=== PATIENT | female | born 1955 | race Caucasian/White ===

== ENCOUNTER 2021-09-23 17:04 | Emergency (ER) | payer MEDICARE, SELFPAY ==
[2021-09-23 17:21] VITALS: BP 134/72; PULSE 90; RESP 20; TEMP 36.3; O2SAT 97
--- NOTE | 2021-09-23 17:32 | ED.GENADULT ---
HPI - General Adult General Chief complaint: Extremity Problem,Nontraumatic Stated complaint: Rt leg pain and discoloration Source: patient Mode of arrival: ambulatory Limitations: no limitations History of Present Illness HPI narrative: Yanni is a 66F with a complex PMH including a mood disorder, HTN, DMII, chronic pain, gout, lymphedema, OA and polymyalgia rheumatica that presented to the emergency department with increasing pain and swelling in the RLE for the last few days. She denies any trauma or inciting event. It is a constant aching pain that is better when she puts her legs up but worse with standing. She denies any CP, SOB, or syncope. Related Data Home Medications Medication Instructions Recorded Confirmed allopurinol 300 mg tablet 300 mg PO DAILY 08/03/19 09/23/21 betamethasone dipropionate 0.05 % 1 applic TOPICAL BID 08/03/19 05/01/20 lotion bupropion HCl 300 mg 24 hr tablet, 300 mg PO QAM 08/03/19 09/23/21 extended release cyclobenzaprine 10 mg tablet 10 mg PO TID 08/03/19 09/23/21 gabapentin 400 mg capsule 400 mg PO TID 08/03/19 05/01/20 hydrocodone 10 mg-acetaminophen 1 tablet PO Q4-6H PRN tablet 08/03/19 09/23/21 325 mg tablet insulin aspart U-100 100 unit/mL 30 unit SUB-Q TID ml 08/03/19 05/01/20 (3 mL) subcutaneous pen sertraline 100 mg tablet 100 mg PO BID tablet 08/03/19 09/23/21 trazodone 100 mg tablet 100 mg PO ONCE tablet 08/03/19 05/01/20 Allergies Allergy/AdvReac Type Severity Reaction Status Date / Time estrogens, conjugated Allergy Unknown Hives Verified 05/01/20 13:01 Review of Systems Constitutional: Constitutional: Reports no additional constitutional complaints Eyes: Eyes: Reports no additional eye complaints ENT: Reports system reviewed and no additional complaints, except as documented Cardiovascular: Cardiovascular: Reports no additional cardiovascular complaints Respiratory: Respiratory: Reports no additional respiratory complaints Gastrointestinal: Gastrointestinal: Reports no additional gastrointestinal complaints Genitourinary: Genitourinary: Reports no additional female genitourinary complaints Musculoskeletal: Musculoskeletal: Reports as per HPI Integumentary/Breasts: Skin/Breast: Reports system reviewed and no additional complaints, except as docu Neurologic: Reports system reviewed and no additional complaints, except as documented Psychiatric: Psychiatric: Reports no additional psychiatric complaints Endocrine: Endocrine: Reports no additional endocrine complaints Hematologic/Lymphatic: Hematologic/Lymphatic: Reports no additional hematologic/lymphatic complaints Allergic/Immunologic: Allergic/Immunologic: Reports no additional allergic/immunologic complaints [facility] Past Medical History Medical History (Updated 09/23/21 @ 17:50 by James Hutchison DO) Arthritis Asthma Depression Diabetes ESR raised Fibromyalgia (~2006) Hypertension Surgical History Surgical History H/O section History of cholecystectomy History of total abdominal hysterectomy Family History Family History Other Cancer Cerebrovascular accident Social History Social History Smoking status: Never smoker Alcohol intake: never Exam Const: General: no acute distress and alert Orientation/consciousness: patient oriented x3 Limitations: No altered mental status HENMT: Head: normal to inspection Other: normocephalic, atraumatic Eyes: Conjunctivae: conjunctivae normal Pupils: Equal, round and reactive pupils present Neck: Neck: normal visual inspection Chest: Chest palpation & inspection: normal inspection of the chest Resp: Effort & Inspection: normal respiratory effort, not labored and not tachypneic Auscultation: clear to auscultation bilaterally Cardio: Rate: regular
[2021-09-23] MEDS: CEPHALEXIN 500 MG CAPSULE PO (17:50)
[2021-09-23] MEDS: ENOXAPARIN 120 MG/0.8 ML SYRINGE 147 MG SUB-Q (17:54)
== END 2021-09-23 18:19 | disposition home or self-care (01) ==
PROVIDERS: Emergency Provider Family Medicine; PCP Internal Medicine
DX: M79.604 Pain in right leg (principal); M79.89 Other specified soft tissue disorders; L03.90 Cellulitis, unspecified; E11.9 Type 2 diabetes mellitus without complications; I10 Essential (primary) hypertension
CPT/HCPCS: 96372; 99283; A9270; J1650

== ENCOUNTER 2021-09-24 14:10 | Outpatient (CLI) | payer MEDICARE, SELFPAY ==
--- NOTE | ~2021-09-24 | US_ITS ---
EXAMINATION: US venous doppler LE RT DATE: 09/24/2021 14:37 INDICATION: Right lower limb pain TECHNIQUE: Grayscale ultrasound images without and with compression and Doppler ultrasound images of the right lower extremity veins were obtained. COMPARISON: None. FINDINGS: The visualized portions of right common femoral vein, profunda (deep) femoral vein, femoral vein, pop liteal vein, posterior tibial veins, peroneal veins and greater saphenous vein outflow are patent. IMPRESSION: 1. No deep venous thrombosis in the right lower limb. Reviewed, dictated and finalized at location A. GOODS MARKER
== END 2021-09-24 14:11 | disposition home or self-care (01) ==
LOC: CHSIMG 14:11
PROVIDERS: PCP Internal Medicine; Visit Provider Family Medicine
DX: M79.604 Pain in right leg (principal)
CPT/HCPCS: 93971

== ENCOUNTER 2021-10-24 12:58 | Outpatient (CLI) | payer MEDICARE, SELFPAY ==
--- NOTE | ~2021-10-24 | US_ITS ---
EXAMINATION: US arterial ankle brachial ind DATE: 10/24/2021 13:28 INDICATION: Peripheral arterial disease. TECHNIQUE: Segmental pressures and plethysmographic and Doppler waveforms of the brachial and lower e xtremity arteries were obtained. COMPARISON: None. FINDINGS: Right and left brachial artery pressures of 130 mm Hg and 138 mm Hg, respectively, are concordant (no rmal difference <= 30 mmHg). The right ankle-brachial index (FLAVIA) is 0.81 (normal >= 0.9-1.0). The right great toe-brachial index (TBI) is 0.93 (normal >= 0.65). Arterial Doppler waveforms are biphasic at the ankle. The left FLAVIA is 1.01. The left TBI is 0.99. Arterial Doppler waveforms are biphasic in posterior tibi al artery and triphasic in dorsalis pedis. IMPRESSION: 1. Mildly decreased right FLAVIA, consistent with right-sided arterial occlusive disease. Reviewed, dictated and finalized at location A. CRANE OPERATOR IMPRESSION: 1. Mildly decreased right FLAVIA, consistent with right-sided arterial occlusive d isease.
== END 2021-10-24 12:59 | disposition home or self-care (01) ==
LOC: CHSIMG 12:59
PROVIDERS: PCP Internal Medicine; Visit Provider Internal Medicine
DX: I73.9 Peripheral vascular disease, unspecified (principal)
CPT/HCPCS: 93922

== ENCOUNTER 2023-01-13 13:54 | Outpatient (CLI) | payer MEDICARE, SELFPAY ==
--- NOTE | ~2023-01-13 | CT_ITS ---
EXAMINATION: CTA chest PE protocol DATE: 01/13/2023 15:19 CDT INDICATION: Dyspnea. Shortness of breath. TECHNIQUE: Computed tomographic angiography (CTA) of the chest was performed with 100 mL Omnipaque-35 0 intravenous contrast. The dose-length product was 1036.27 mGy-cm. Maximum intensity projection 3D-r econstructions of the aorta and other arteries were constructed by the technologist on a separate wor kstation. Automated exposure control and iterative reconstruction technique were employed. COMPARISON: None. FINDINGS: Study is significantly limited for evaluation of pulmonary embolism due to contrast bolus t iming. No large central pulmonary embolism. Heart size normal. No significant pleural or pericardial effusion. Large calcified mediastinal lymph node, likely reactive. Motion artifact severely limits ev aluation for pulmonary nodules. There is dependent atelectasis. No focal airspace consolidation. Ther e are calcified granulomas in the right upper lobe. No pneumothorax. Moderate thoracic spondylosis wi th accentuated kyphosis. IMPRESSION: 1. No large central pulmonary embolism. Limited evaluation of the peripheral pulmonary arteries. 2: No acute cardiopulmonary disease. Reviewed, dictated and finalized at location A. IMPRESSION: 1. No large central pulmonary embolism. Limited evaluation of the peripheral pu lmonary arteries. 2: No acute cardiopulmonary disease.
--- NOTE | ~2023-01-13 | US_ITS ---
EXAMINATION:US venous doppler LE BI INDICATION:Shortness of breath. Bilateral leg wounds. TECHNIQUE: Multiple grayscale, color flow and Doppler images of the right and left lower extremity de ep venous systems were obtained and reviewed. COMPARISON:No prior studies for comparison. FINDINGS: Study is significantly limited due to patient body habitus and skin changes. The common fem oral, superficial femoral and popliteal veins demonstrate normal respiratory variation, augmentation and compressibility. Color flow is also seen within the posterior tibial, greater saphenous and prof unda veins. The peroneal veins are not visualized. IMPRESSION: 1: No lower extremity deep venous thrombosis. Limited study. Reviewed, dictated and finalized at location A.
== END 2023-01-13 13:55 | disposition home or self-care (01) ==
LOC: CHSIMG 13:57
PROVIDERS: PCP Internal Medicine; Visit Provider Internal Medicine
DX: R06.00 Dyspnea, unspecified (principal); M79.89 Other specified soft tissue disorders
CPT/HCPCS: 71275; 93970; Q9967

== ENCOUNTER 2023-11-01 11:29 | Inpatient (IN) | payer MEDICARE, SELFPAY ==
[2023-11-01] VITALS (12 sets, daily range): BP systolic 112–171; BP diastolic 40–88; PULSE 76–86; RESP 18–29; TEMP 36.3–36.9; O2SAT 95–99; BMI 57.6
--- NOTE | ~2023-11-01 | CT_ITS ---
EXAMINATION: CT chst ab pel thor lum w DATE: 11/01/2023 14:50 INDICATION: TECHNIQUE: Computed tomography (CT) of the chest, abdomen, pelvis, thoracic spine and lumber spine wa s performed with 100 mL Omnipaque-350 intravenous contrast. Automated exposure control and iterative reconstruction technique were employed. The dose-length product was 1838.93 mGy-cm. COMPARISON: PA 01/13/2023 FINDINGS: Study limited by beam hardening from arm positioning and quantum mottle. CHEST: No thoracic aortic injury. Mild arch calcification. No mediastinal hematoma. Granulomatous calcifications. No pericardial effusion. No acute lung injury. Scattered sub-6 mm pulmonary nodules. Mild dependent atelectasis. Calcified gra nulomas. No pleural effusion or pneumothorax. ABDOMEN/PELVIS: No solid organ injury. Enlarged liver with nodular border. No evidence of bowel or mesenteric injury. Status post cholecystectomy. Diverticulosis without divert iculitis. Appendix not confidently visualized. No free fluid or free air. No retroperitoneal hematoma. Atherosclerotic calcifications. Pelvic contents are atraumatic. MUSCULOSKELETAL (excluding spine): No acute fracture. Large, small bowel containing umbilical hernia, without inflammatory change or kizzy dence of bowel obstruction. Mild body wall edema. THORACIC SPINE: No fracture or traumatic malalignment of the thoracic spine. Multilevel moderate degenerative disc di sease. Multilevel moderate facet arthropathy. Multilevel moderate and severe degrees of neural forami nal narrowing. No severe central canal narrowing. LUMBAR SPINE: Mild lumbar scoliosis. No fracture or traumatic malalignment of the lumbar spine. Multilevel moderate and severe degrees of lumbar degenerative disc disease. L5-S1 fusion. Severe bilateral neural forami nal narrowing at L5-S1. Severe left neural foraminal narrowing at L4-5. Severe right neural foraminal narrowing at L2-3. Severe central canal narrowing at L1-2 and L4-5. Multilevel severe facet arthropa thy. IMPRESSION: No acute process detected in the chest, abdomen, pelvis, thoracic spine, or lumbar spine. Multiple sub-6 mm pulmonary nodules which require no additional evaluation at this time, unless the p atient is at high risk, which case consider an optional low-dose noncontrast CT of the chest in one y ear. Hepatomegaly with possible cirrhosis. Mild body wall edema. Reviewed, dictated and finalized at location K. SCAPE HORTICULTURE INSTRUCTOR IMPRESSION: No acute process detected in the chest, abdomen, pelvis, thoracic spine, or lum bar spine. Multiple sub-6 mm pulmonary nodules which require no additional evaluation at t his time, unless the patient is at high risk, which case consider an optional l ow-dose noncontrast CT of the chest in one year. Hepatomegaly with possible cirrhosis. Mild body wall edema.
--- NOTE | ~2023-11-01 | CT_ITS ---
EXAMINATION: CT brain wo con DATE: 11/01/2023 14:49 INDICATION: trauma . TECHNIQUE: Computed tomography (CT) of the head was performed without intravenous contrast. The mA wa s adjusted according to patient size. Iterative reconstruction technique was employed. The dose-lengt h product was 605.33 mGy-cm. COMPARISON: None. FINDINGS: No acute intracranial hemorrhage or extra-axial fluid collection. No hydrocephalus, mass, or herniation. No acute ischemic infarct. Unremarkable dural venous sinus attenuation. No acute osseous abnormality. The aerated spaces are clear. Mild atrophy and chronic white matter change. Atherosclerotic intracranial calcification. IMPRESSION: No acute intracranial process. Reviewed, dictated and finalized at location K. CULTURAL SERVICE WORKER
--- NOTE | ~2023-11-01 | CT_ITS ---
EXAMINATION: CT facial & cervical spine wo DATE: 11/01/2023 14:50 INDICATION: trauma TECHNIQUE: Computed tomography (CT) of the maxillofacial region and cervical spine was performed with out intravenous contrast. Automated exposure control and iterative reconstruction technique were empl oyed. The dose-length product was 616.37 mGy-cm. COMPARISON: None FINDINGS: CERVICAL: Vertebral Body Alignment: Intact. Craniocervical and atlantoaxial alignment: Moderate degenerative change. Alignment intact. Osseous structures/fracture: No evidence of a lytic or blastic process in the visualized spine. No a cute fracture. Cervical soft tissues: The paraspinal soft tissues planes are maintained. Degenerative changes: Degenerative changes, without severe neural foraminal or central canal narrowin g. FACE: Soft Tissues: No significant superficial soft tissue swelling. Facial bones: Mildly depressed right nasal bone fracture. Nondisplaced anterior/left nasal bone frac ture. No lytic or blastic process. Eyes: The globes are intact. The soft tissue planes of the orbits are maintained. Paranasal Sinuses: The visualized aerated spaces are clear. Foreign Bodies: No radiopaque foreign bodies. Other Findings: None. IMPRESSION: No acute fracture or traumatic malalignment in the cervical spine. Mildly depressed right nasal bone fracture. Nondisplaced anterior/left nasal bone fracture. Reviewed, dictated and finalized at location K. ING AND STAPLING MACHINE OPERATOR IMPRESSION: No acute fracture or traumatic malalignment in the cervical spine. Mildly depressed right nasal bone fracture. Nondisplaced anterior/left nasal desean ne fracture.
--- NOTE | ~2023-11-01 | XR_ITS ---
EXAMINATION: XR chest 1V portable INDICATION: Chest pain TECHNIQUE: Portable AP chest at 1305 hours COMPARISON: 02/11/2011 FINDINGS: The lungs are free of acute opacities. No pleural effusion or pneumothorax. The cardiomedia stinal silhouette is normal. IMPRESSION: 1. No acute cardiopulmonary abnormality. Reviewed, dictated and finalized at location B. ASSISTANT
--- NOTE | 2023-11-01 11:41 | ECG_ITS ---
Measurements Intervals [place] Rate: 76 P: 25 OR: 144 QRS: -51 QRSD: 138 T: -14 QT: 400 QTc: 452 Interpretive Statements SINUS RHYTHM LEFT AXIS DEVIATION [QRS AXIS < -30] RIGHT BUNDLE BRANCH BLOCK [120+ ms QRS DURATION, UPRIGHT V1, 40+ ms S IN I/aVL/V4/V5/V6] ABNORMAL ECG NO PREVIOUS ECG AVAILABLE FOR COMPARISON Electronically Signed On 11-02-2023 7:25:42 HOME SCHOOL LIAISON OFFICER by Sam Prince M.D.
--- NOTE | 2023-11-01 12:03 | ED.SYNCOPE ---
HPI - Syncope General Chief Complaint: Syncope Stated Complaint: syncope Time Seen by Provider: 11/01/23 12:00 Related Data Home Medications Medication Instructions Recorded Confirmed allopurinol 300 mg tablet 300 mg PO DAILY 08/03/19 09/23/21 betamethasone dipropionate 0.05 % 1 applic topical BID 08/03/19 05/01/20 lotion bupropion HCl 300 mg 24 hr tablet, 300 mg PO QAM 08/03/19 09/23/21 extended release cyclobenzaprine 10 mg tablet 10 mg PO TID 08/03/19 09/23/21 gabapentin 400 mg capsule 400 mg PO TID 08/03/19 05/01/20 hydrocodone 10 mg-acetaminophen 1 tablet PO Q4-6H PRN Pain 08/03/19 09/23/21 325 mg tablet insulin aspart U-100 100 unit/mL 30 unit subcut TID 08/03/19 05/01/20 (3 mL) subcutaneous pen (Novolog FlexPen U-100 Insulin aspart) sertraline 100 mg tablet 100 mg PO BID 08/03/19 09/23/21 trazodone 100 mg tablet 100 mg PO ONCE 08/03/19 05/01/20 Allergies Allergy/AdvReac Type Severity Reaction Status Date / Time estrogens, conjugated Allergy Unknown Hives Verified 05/01/20 13:01 [facility] Past Medical History Medical History (Updated 09/24/21 @ 00:00 by Willow Victor) Arthritis Asthma Depression Diabetes ESR raised Fibromyalgia (~2006) Hypertension Surgical History Surgical History H/O section History of cholecystectomy History of total abdominal hysterectomy Family History Family History Other Cancer Cerebrovascular accident Social History Social History Smoking status: Never smoker Alcohol intake: never Course Course Emergency Course: Chart review performed. Patient here with syncope last night. Found face down on the floor. Triage vitals show tachypnea, otherwise normal. Last visit in our system was 09/23/21 for cellulitis. Vital Signs Vital signs: Vital Signs Temperature 98.4 F 11/01/23 11:25 Pulse Rate 80 11/01/23 11:25 Respiratory Rate 24 H 11/01/23 11:25 Blood Pressure 144/40 H 11/01/23 11:25 Pulse Oximetry 96 11/01/23 11:25 Oxygen Delivery Room Air 11/01/23 11:25 Temperature 98.4 F 11/01/23 11:25 Pulse Rate 80 11/01/23 11:25 Respiratory Rate 24 H 11/01/23 11:25 Blood Pressure 144/40 H 11/01/23 11:25 Pulse Oximetry 96 11/01/23 11:25 Oxygen Delivery Room Air 11/01/23 11:25 Discharge Plan Discharge Prescriptions: No Action cephalexin 500 mg capsule 500 mg PO Q8H Qty: 15 0RF enoxaparin [Lovenox] 150 mg/mL syringe 147 mg subcut Q12H Qty: 10 0RF folic acid 1 mg tablet 1 mg PO DAILY Qty: 90 1RF allopurinol 300 mg tablet 300 mg PO DAILY betamethasone dipropionate 0.05 % lotion 1 applic TOPICAL BID bupropion HCl 300 mg tablet extended release 24 hr 300 mg PO QAM cyclobenzaprine 10 mg tablet 10 mg PO TID gabapentin 400 mg capsule 400 mg PO TID hydrocodone-acetaminophen 10-325 mg tablet 1 tablet PO Q4-6H PRN (Reason: Pain) Novolog FlexPen U-100 Insulin 100 unit/mL (3 mL) insulin pen 30 unit SUB-Q TID sertraline 100 mg tablet 100 mg PO BID trazodone 100 mg tablet 100 mg PO ONCE Follow-up/Referrals: Juliann Hartman MD [Primary Care Provider] -
--- NOTE | 2023-11-01 12:19 | ED.GENADULT ---
HPI - General Adult General Chief complaint: Syncope Stated complaint: syncope Time Seen by Provider: 11/01/23 12:00 History of Present Illness HPI narrative: Patient is a 68-year-old female with history of arthritis, diabetes, hypertension here after a fall. Patient notes that around 11 pm she was up walking to the bathroom when she believes she stumbled and fell to the ground. Patient lives home alone. She notes that for the last week she has had significant generalized weakness and this is what she thinks caused her fall. She denies passing out or feeling light headed prior to the fall. She believes she may have hit her head on the way to the ground on her heater because it had blood on it. She was unable to get herself off of the ground and did not know where her phone was so she laid on the floor all night face down. This morning she was able to find her phone, call her daughter and EMS was called to bring her into the ED. She does not use blood thinners. She is currently complaining of pain all over her entire body and face. Related Data Home Medications Medication Instructions Recorded Confirmed allopurinol 300 mg tablet 300 mg PO DAILY 08/03/19 09/23/21 betamethasone dipropionate 0.05 % 1 applic topical BID 08/03/19 05/01/20 lotion bupropion HCl 300 mg 24 hr tablet, 300 mg PO QAM 08/03/19 09/23/21 extended release cyclobenzaprine 10 mg tablet 10 mg PO TID 08/03/19 09/23/21 gabapentin 400 mg capsule 400 mg PO TID 08/03/19 05/01/20 hydrocodone 10 mg-acetaminophen 1 tablet PO Q4-6H PRN Pain 08/03/19 09/23/21 325 mg tablet insulin aspart U-100 100 unit/mL 30 unit subcut TID 08/03/19 05/01/20 (3 mL) subcutaneous pen (Novolog FlexPen U-100 Insulin aspart) sertraline 100 mg tablet 100 mg PO BID 08/03/19 09/23/21 trazodone 100 mg tablet 100 mg PO ONCE 08/03/19 05/01/20 Allergies Allergy/AdvReac Type Severity Reaction Status Date / Time estrogens, conjugated Allergy Unknown Hives Verified 11/01/23 12:17 Review of Systems Review of Systems: All systems reviewed & are unremarkable except as noted in HPI and below PMFSH Past Medical History Medical History (Updated 11/01/23 @ 14:52 by Katelin Wright MD) Arthritis Asthma Depression Diabetes ESR raised Fibromyalgia (~2006) Hypertension Surgical History Surgical History H/O section History of cholecystectomy History of total abdominal hysterectomy Family History Family History Other Cancer Cerebrovascular accident Social History Social History Smoking status: Never smoker Alcohol intake: never Exam Narrative: GENERAL: Ill-appearing, well-nourished, and in no acute distress. HEAD: Normocephalic, bruising around bilateral eyes and bridge of nose, tenderness to inferior orbits bilaterally. 3 cm linear laceration over the right eye brow, no active bleeding. EYES: PERRLA and EOMI. ENT: Nares clear. Mucous membranes moist. NECK: Supple. CHEST: Clear to auscultation. No respiratory distress. Diffuse erythema with some blistering present over the chest. Rash underneath bilateral breasts consistent with yeast dermatitis (patient notes this is chronic). Chest wall diffusely tender. HEART: Regular rate and rhythm. Normal peripheral pulses. ABDOMEN: Soft, nontender, nondistended. 5cm umbilical hernia, soft, reducible. superior aspect also has some erythema consistent with yeast dermatitis (patient notes this is chronic). EXTREMITIES: Normal range of motion. Bilateral upper and lower extremities non traumatic with normal ROM. SKIN: Warm, dry, erythema present over mons, and inguinal area bilaterally, no crepitus, no blistering. Erythema and warmth to lateral left thigh, no crepitus, no blistering. NEURO: No focal deficits. Alert and oriented x3. PSYCH: Normal mood and affect.
[2023-11-01] MEDS: LACTATED RINGERS 1,000 ML 999 ML IV CONT (13:08)
[2023-11-01] MEDS: TETANUS,DIPHTHERIA,AC PERTUSSIS ADULT (0.5 ML) BOOSTRIX IM (13:10)
[2023-11-01 13:19] LABS: Appearance Urine Cloudy (Clear); Bacteria Urine None Seen /hpf; Bilirubin Urine 2+ (Negative); Blood Urine 3+ (Negative); Color Urine Dark Yellow (Yellow); Glucose Urine UA Negative (Negative); Hyaline Casts Urine Present /lpf; Ketones Urine Trace mg/dL (Negative); Leukocyte Esterase Ur Trace LEU/UL (Negative); Mucus Urine Present /lpf; Need Manual Microscopic Reviewed; Nitrate Urine Positive (Negative); Non Pathogenic Casts >20; Protein Urine 2+ mg/dL (Negative); Specific Grav Ur 1.031 (1.001-1.035); Squamous Epithelial Cell Urine Moderate /hpf (Few); WBC Urine 0-5 /hpf; pH Urine 5.5 (5.0-9.0)
[2023-11-01 13:23] LABS: Add Urine Microscopic? YES
[2023-11-01 13:44] LABS: Influenza A QL RT-PCR Negative (Negative); Influenza B QL RT-PCR Negative (Negative); RSV RNA, RT-PCR Negative (Negative); SARS-CoV-2 RNA PCR Negative (Negative)
[2023-11-01 14:00] LABS: Basophils Percent Auto 0.2 % (0.2-1.2); Eosinophils Percent Auto 0.1 % (0-4.4); Hematocrit 41.1 % (37.0-47.0); Immature Granulocyte Absolute 0.18 K/mm3 (0.00-0.031); Lymphocytes Absolute Auto 0.67 K/mm3 (0.9-3.2); Lymphocytes Percent Auto 3.5 % (18.3-44.2); Mean Corpuscular HGB Conc 31.6 g/dl (32-36); Mean Corpuscular Hemoglobin 27.4 pg (26-34); Mean Corpuscular Volume 86.7 fl (80-100); Mean Platelet Volume 8.8 fl (7.4-10.4); Monocytes Absolute Auto 0.8 K/mm3 (0.1-0.6); Monocytes Percent Auto 4.3 % (2.6-8.5); Neutrophils Absolute Auto 17.2 K/mm3 (1.3-6.7); Neutrophils Percent Auto 90.9 % (45.5-73.1); Platelet Count Result 221 k/mm3 (150-375); Red Blood Count 4.74 M/mm3 (4.2-5.4); Red Cell Distribution Width 15.3 % (11.5-14.5); White Blood Count 18.9 K/mm3 (4.5-10.0)
[2023-11-01 14:07] LABS: INR 1.3; Prothrombin Time 16.3 Seconds (11.1-14.7)
[2023-11-01 14:08] LABS: Lactic Acid Reflex 2.7 mmol/L (0.7-2.0)
[2023-11-01 14:09] LABS: Partial Thromboplastin Time 32.9 SECONDS (22.3-36.8)
[2023-11-01 14:11] LABS: Magnesium 1.9 mg/dL (1.6-2.3)
[2023-11-01 14:12] LABS: Alanine Aminotransferase 41 U/L (6-35); Albumin Level 3.5 g/dL (3.5-5.1); Alkaline Phosphatase 83 U/L (38-126); Anion Gap 6 mmol/L (8-16); Aspartate Amino Transferase 110 U/L (14-36); Bilirubin,Total 1.6 mg/dL (0.2-1.3); Blood Urea Nitrogen 26 mg/dL (7-17); Calcium 8.8 mg/dL (8.4-10.2); Carbon Dioxide 31 mmol/L (22-30); Chloride 97 mmol/L (98-107); Estimated CRCL calculation 70 ml/min; Estimated Glomerular Filt Rate > 60; Glucose 116 mg/dL (65-110); Potassium 3.5 mmol/L (3.4-5.0); Sodium 134 mmol/L (137-145)
[2023-11-01 14:23] LABS: Troponin I 0.021 ng/mL (0.000-0.034)
[2023-11-01 14:47] LABS: Creatine Kinase 3497 U/L (30-135)
[2023-11-01 14:51] LABS: CRP 31.2 mg/dL (<1.0)
--- NOTE | 2023-11-01 15:20 | ECG_ITS ---
Measurements Intervals [place] Rate: 86 P: 69 ND: 152 QRS: -54 QRSD: 160 T: 2 QT: 416 QTc: 498 Interpretive Statements SINUS RHYTHM RIGHT BUNDLE BRANCH BLOCK [120+ ms QRS DURATION, UPRIGHT V1, 40+ ms S IN I/aVL/V4/V5/V6] LEFT ANTERIOR FASCICULAR BLOCK [QRS AXIS <= -45, QR IN I, RS IN II] ABNORMAL ECG+ COMPARED WITH EARLIER TODAY NOTHING HAS CHANGED Electronically Signed On 11-02-2023 7:32:20 POUND ATTENDANT by Sam Prince M.D.
[2023-11-01] MEDS: CEFEPIME 2 GM/NS 50 ML 2 GM/50 ML BAG IVPB (15:29)
[2023-11-01] MEDS: ONDANSETRON INJ 4 MG/2 ML VIAL IV PUSH (16:24)
[2023-11-01] MEDS: MORPHINE SULFATE (*CRX) 4 MG/ML INJ IV PUSH (16:26)
[2023-11-01] MEDS: VANCOMYCIN 1,250 MG/NS 250 ML 1,250 MG/250 ML BAG 166.67 MG IVPB ×2 (16:29→18:20)
[2023-11-01 16:55] LABS: Reflex Lactic Acid Yes or No Add Lactic
--- NOTE | 2023-11-01 17:20 | PC.NURSE ---
This patient, Yanni Kraus, was admitted to Medical Room 245-. Patient/family oriented to hospital policies and general routines including ID bracelet, bed and alarms, visiting hours, pain management, procedures, bathroom and other care routines, personal items, smoking policy, room service/diet, and visiting hours. Information on how to activate the Rapid Response Team has been discussed. Patient/Family are encouraged to report perceived risks to care and to ask questions if they do not understand what they are told or what they should do.
[2023-11-01 18:13] LABS: Lactic Acid 1.8 mmol/L (0.7-2.0)
[2023-11-01] MEDS: LACTATED RINGERS 1,000 ML 150 ML IV CONT (18:19)
--- NOTE | 2023-11-01 18:23 | PCRCNOTE ---
RT sent a notification that patient uses a CPAP at home. RT spoke to patient. Patient refuses to use Hospital CPAP at this time. RN aware.
--- NOTE | 2023-11-01 19:29 | PC.NURSE ---
Medications reconciled. Patient states she has a list at home that someone can bring in to double-check. Patient concerned she may have missed some.
[2023-11-01 21:23] LABS: Glucose Point of Care 132 mg/dl (65-105)
--- NOTE | 2023-11-01 21:31 | PM.IMHP ---
H&P: HPI History of Present Illness Date/Time: 11/01/23 21:31 Chief Complaint: Fall, unable to get up Narrative: 68-year-old female past medical history of chronic venous stasis bilateral lower extremities, morbid obesity BMI 58, obstructive sleep apnea intolerant to CPAP therapy COPD, type 2 diabetes mellitus, gout and chronic insomnia who presented to the ER via EMS after a fall at home. The patient reports that she was walking to the bathroom and became so weak that she stumbled and fell. She she suspects she must have hit her head on the way down because the heater in the bathroom had blood on it. The patient's face did demonstrate evidence of trauma and CT of the facial bones did demonstrate a nasal fracture. The patient had bilateral black eyes. She reports that she hurts all over does have mild headache. She denies any double vision. When she fell she was unable to get up on her own in late on the floor face down for at least 12 hours. She was unable to find her phone when she 1st fell. She eventually was able to find her phone and called her daughter. The patient reports that she has chronic rashes under bilateral breast and pannus, she has not noticed any increased warmth to these areas but cannot really see the areas. She did not realize that she had an area of erythema to her left lateral thigh. She denies any nausea or vomiting but has been having decreased appetite. She has been progressively weaker over the last week or so. She could not figure out why. She was so weak her legs at times were shaking. She did occasionally feel lightheaded when she stood up. She has ambulated with a walker for many years. She denies any chest pain. She does have some chronic shortness of breath that is unchanged from baseline but was made worse by having a lay face down on the bathroom floor. She has chronic urinary urgency that is unchanged from baseline. She denies any dysuria. She does occasionally have some urinary incontinence. She denies any hematuria. She reports that her urine has smelled foul for years since she has started taking medications. She reports her last hemoglobin A1c approximately 3 months ago was 5.3 %. She does report symptoms of peripheral neuropathy. She has chronic lower extremity edema that she does not think it is any worse than usual. She has chronic venous stasis dermatitis. She has not noticed any open wounds are oozing from her legs. Review of Systems Review of Systems: 12 systems were reviewed with pertinent positives and negatives per HPI. Except as documented in the HPI, all other systems were reviewed and are negative. FORMERLY [facility], [facility] Past Medical History Medical History (Updated 11/02/23 @ 09:03 by Carlota Mcdonald DO) Arthritis Asthma Depression Eczema ESR raised Fibromyalgia (~2006) Gout Hypertension Morbid obesity with body mass index (BMI) greater than or equal to 50 Obstructive sleep apnea PMR (polymyalgia rheumatica) Psoriasis Umbilical hernia Surgical History Surgical History (Updated 11/01/23 @ 21:41 by Carlota Mcdonald DO) H/O section X2 History of appendectomy History of cholecystectomy History of total abdominal hysterectomy Family History Family History Other Cancer Cerebrovascular accident Social History Social History (Updated 11/02/23 @ 08:56 by Carlota Mcdonald DO) Social History: She lives alone in her own home. She has a daughter that lives in our way and a son that lives 2 hours away. She smoked less than a pack of cigarettes per day from the time she was a teenager until approximately 1999. She denies any excessive alcohol use or illicit substance use. She ambulates with a walker. Code status: Full code Surrogate decision maker: Vicki Valerie (daughter) Smoking packs per day: 1 Smoking cigarettes per day: 20.0 Years smoked: 20 Smoking pack-years: 20.[address]
[2023-11-01] MEDS: SERTRALINE HCL 50 MG TABLET 100 MG PO (21:36)
[2023-11-01] MEDS: ENOXAPARIN 40 MG/0.4 ML SYRINGE SUB-Q (21:36)
--- NOTE | 2023-11-01 22:39 | PCRCNOTE ---
Pt's face/nose very bruised, pt in pain and very emotional at this time. Pt is refusing apnea link.
[2023-11-02] VITALS (16 sets, daily range): BP systolic 126–145; BP diastolic 48–64; PULSE 77–94; RESP 16–20; TEMP 36–36.8; O2SAT 94–100
[2023-11-02] MEDS: CEFEPIME 2 GM/NS 50 ML 2 GM/50 ML BAG IVPB ×2 (00:08→14:51)
[2023-11-02] MEDS: ALBUTEROL SULFATE (*SP) AEROSOL 1 PUFF 2 PUFF INHALATION ×4 (02:22→20:30)
[2023-11-02 04:53] LABS: Basophils Percent Auto 0.3 % (0.2-1.2); Eosinophils Absolute Auto 0.1 K/mm3 (0-0.3); Eosinophils Percent Auto 0.8 % (0-4.4); Hematocrit 37.8 % (37.0-47.0); Hemoglobin 11.8 g/dL (12.0-15.0); Immature Granulocyte Absolute 0.11 K/mm3 (0.00-0.031); Lymphocytes Absolute Auto 0.66 K/mm3 (0.9-3.2); Lymphocytes Percent Auto 5.7 % (18.3-44.2); Mean Corpuscular HGB Conc 31.2 g/dl (32-36); Mean Corpuscular Volume 86.5 fl (80-100); Mean Platelet Volume 8.7 fl (7.4-10.4); Monocytes Absolute Auto 0.5 K/mm3 (0.1-0.6); Monocytes Percent Auto 4.4 % (2.6-8.5); Neutrophils Absolute Auto 10.2 K/mm3 (1.3-6.7); Neutrophils Percent Auto 87.8 % (45.5-73.1); Platelet Count Result 199 k/mm3 (150-375); Red Blood Count 4.37 M/mm3 (4.2-5.4); Red Cell Distribution Width 15.4 % (11.5-14.5); White Blood Count 11.6 K/mm3 (4.5-10.0)
[2023-11-02 05:27] LABS: Hemoglobin A1C 5.2 % (<5.7)
[2023-11-02 05:43] LABS: Alanine Aminotransferase 46 U/L (6-35); Albumin Level 3.1 g/dL (3.5-5.1); Alkaline Phosphatase 69 U/L (38-126); Anion Gap 4 mmol/L (8-16); Aspartate Amino Transferase 102 U/L (14-36); Bilirubin,Total 1.1 mg/dL (0.2-1.3); Blood Urea Nitrogen 21 mg/dL (7-17); Calcium 8.4 mg/dL (8.4-10.2); Carbon Dioxide 30 mmol/L (22-30); Chloride 101 mmol/L (98-107); Creatine Kinase 2355 U/L (30-135); Estimated CRCL calculation 91 ml/min; Estimated Glomerular Filt Rate > 60; Glucose 128 mg/dL (65-110); Potassium 3.5 mmol/L (3.4-5.0); Sodium 135 mmol/L (137-145)
[2023-11-02] MEDS: FLUTICASONE/SALMETEROL 230-21 MCG INHALER 1 PUFF 2 PUFF INHALATION ×2 (07:21→20:30)
[2023-11-02 08:35] LABS: Glucose Point of Care 120 mg/dl (65-105)
[2023-11-02] MEDS: traMADol HCL (*CRX) 50 MG TABLET PO ×2 (10:46→20:08)
[2023-11-02] MEDS: buPROPion HCL XL (24 HR) 150 MG TABCR 300 MG PO (10:46)
[2023-11-02] MEDS: ENOXAPARIN 40 MG/0.4 ML SYRINGE SUB-Q ×2 (10:46→21:49)
[2023-11-02] MEDS: allopurinoL 300 MG TABLET PO (10:46)
[2023-11-02] MEDS: SERTRALINE HCL 50 MG TABLET 100 MG PO ×2 (10:46→20:05)
[2023-11-02] MEDS: CYCLOBENZAPRINE HCL 10 MG TABLET PO ×3 (10:46→17:48)
[2023-11-02] MEDS: TOLNAFTATE 1% POWDER 45 GM BTL 1 APPLIC TOPICAL ×2 (10:47→20:05)
[2023-11-02] MEDS: VANCOMYCIN 1,500 MG/NS 500 ML 1,500 MG/500 ML BAG 250 MG IVPB (10:48)
[2023-11-02] MEDS: TRIAMCINOLONE ACET 0.1% CREAM 15 GM TUBE 1 APPLIC TOPICAL (10:48)
[2023-11-02 12:06] LABS: Glucose Point of Care 124 mg/dl (65-105)
--- NOTE | 2023-11-02 12:55 | PM.IMPN ---
Progress Note: A&P Assessment and Plan (1) Rhabdomyolysis: Qualifiers: Rhabdomyolysis type: non-traumatic Qualified Code(s): M62.82 - Rhabdomyolysis Code(s): M62.82 - Rhabdomyolysis Status: Acute Assessment and Plan: ?-rhabdomyolysis due to fall and extended down time down for at least 12 hours CK > 3000 -continue aggressive IV fluid hydration at 150 ML/Hr -recheck CK and electrolytes in the a.m. -concern for kidney function will hold home medication allopurinol at this time (2) Fall: Qualifiers: Encounter type: initial encounter Qualified Code(s): W19.XXXA - Unspecified fall, initial encounter Code(s): W19.XXXA - Unspecified fall, initial encounter Status: Acute Assessment and Plan: Initiate fall precautions -up with assistance only -PT/OT eval and treat (3) Cellulitis: Qualifiers: Site of cellulitis: unspecified site Qualified Code(s): L03.90 - Cellulitis, unspecified Code(s): L03.90 - Cellulitis, unspecified Status: Acute Assessment and Plan: Chronic, ongoing bilateral lower extremities -continue cefepime -continue vancomycin -blood cultures pending -repeat CBC in the a.m., (4) Abnormal finding on urinalysis: Code(s): R82.90 - Unspecified abnormal findings in urine Status: Acute Assessment and Plan: Asymptomatic bacteriuria Abnormal urinalysis with nitrates positive but no bacteria, patient denies urinary symptoms -culture pending -monitor for s/s of infection (5) Laceration of face with delay in treatment: Qualifiers: Encounter type: initial encounter Qualified Code(s): S01.81XA - Laceration without foreign body of other part of head, initial encounter Code(s): S01.81XA - Laceration without foreign body of other part of head, initial encounter Status: Acute Assessment and Plan: -right cheek laceration, Steri-Strips applied -bilateral orbital ecchymosis (6) Obstructive sleep apnea: Code(s): G47.33 - Obstructive sleep apnea (adult) (pediatric) Status: Acute Assessment and Plan: -Unknown, patient had low oxygen saturations s/p: medication administration in the ED -continue oxygen titration as needed to keep SpO2 above 93% -patient does not CPAP at this time. May consider sleep apnea trial while inpatient (7) Morbid obesity with body mass index (BMI) greater than or equal to 50: Code(s): E66.01 - Morbid (severe) obesity due to excess calories Status: Acute Assessment and Plan: -initiate low-calorie diet (8) Transaminitis: Code(s): R74.01 - Elevation of levels of liver transaminase levels Status: Acute Assessment and Plan: Transaminitis/CT suggests possible cirrhosis, verses elevation due to rhabdomyolysis, or infection -will need to follow-up outpatient -recheck CMP in the a.m./continue to monitor (9) Type 2 diabetes mellitus: Qualifiers: Diabetes mellitus half-way insulin use: with half-way use Diabetes mellitus complication status: with skin complications Diabetes mellitus complication detail: with other skin complication Qualified Code(s): E11.628 - Type 2 diabetes mellitus with other skin complications; Z79.4 - manager intermediate (current) use of insulin Code(s): E11.9 - Type 2 diabetes mellitus without complications Status: Acute Assessment and Plan: -continue bedside glucose management -continue bedside hypoglycemic management per protocol -continue corrective moderate -dose regimen (10) QT prolongation: Code(s): R94.31 - Abnormal electrocardiogram [ECG] [EKG] Status: Acute Assessment and Plan: -repeat EKG in the ER demonstrated QT interval 498 -continue to monitor telemetry -check echocardiogram -repeat EKG in the a.m. -avoid zofran, please alert MD with any reports nausea or vomiting (11) Nasal bone fracture: Qualifiers: Encounter t
[2023-11-02 17:05] LABS: Glucose Point of Care 111 mg/dl (65-105)
[2023-11-02] MEDS: INSULIN ASPART (*BKC) 100 UNITS/ML 15 UNITS SUB-Q (17:49)
[2023-11-02 21:03] LABS: Glucose Point of Care 106 mg/dl (65-105)
[2023-11-03] VITALS (9 sets, daily range): BP systolic 121–142; BP diastolic 47–63; PULSE 74–86; RESP 17–20; TEMP 36–36.7; O2SAT 95–100
--- NOTE | 2023-11-03 | ECHO_ITS ---
Patient Info Name: Yanni Kraus Age: 68 years : 1955 Gender: Female Ht: 62 in Wt: 320 lbs BSA: 2.62 m2 HR: 80 bpm BP: 139 / 52 mmHg Heart Rhythm: Sinus Rhythm Technical Quality: Fair Exam Date: 11/03/2023 1:04 PM Exam Location: Echo Lab Patient Status: Inpatient Admit Date: 11/01/2023 Staff Ordering Physician: Teresa Echeverria APRN Teacher Ballet: Daniela Harris RDCS Attending Provider: Sudarshan Orr MD Referring Physician: Juwan HAMMONDS; Exam Type: CA echo dop color flow w con Study Info Indications - weakness and fall Complete two-dimensional, color flow and Doppler transthoracic echocardiogram is performed with contrast to opacify the left ventricle and to improve the deliniation of the left ventricle endocardial borders. Contrast/Agitated Saline Contrast/Ag. Saline: Definity Amount: 3.00 ml Administered By: Daniela Harris RDCS Existing IV Access: Yes IV Access Condition: patent with no signs of infiltration Summary 1. Technically difficult study with limited views. 2. Left ventricular chamber dimension is normal. 3. Left ventricular systolic function is normal, estimated at 65-70%. 4. Right ventricular systolic function is normal. 5. There is mild aortic valve stenosis. 6. There is mild tricuspid valve regurgitation. 7. There is trivial pericardial effusion. Left Ventricle Left ventricular chamber dimension is normal. Left ventricular systolic function is normal, estimated at 65-70%. Right Ventricle Right ventricular chamber dimension is normal. Right ventricular systolic function is normal. Left Atria Left atrial chamber dimension is normal. Right Atria Right atrial chamber dimension is normal. Atrial Septum Interatrial septum is not well visualized. Aortic Valve The aortic valve is not well visualized. There is mild aortic valve stenosis. There is no aortic valve regurgitation. Pulmonic Valve The pulmonic valve is not well visualized. Mitral Valve There is trace mitral valve regurgitation. Tricuspid Valve There is mild tricuspid valve regurgitation. Pericardium/Pleural There is trivial pericardial effusion. Inferior Vena Cava Normal inferior vena cava with >50% collapse upon inspiration consistent with normal right atrial pressure, 3 mmHg. Aorta The aortic root size at the sinus of Valsalva is normal. Left Ventricular Outflow Tract Name Value Normal LVOT 2D LVOT Diameter 2.04 cm LVOT Doppler LVOT Peak Gradient 7 mmHg LVOT Mean Gradient 3 mmHg LVOT VTI 22.75 cm LVOT VTI/AV VTI Ratio 0.56 LVOT Stroke Volume 74.66 ml LVOT CO 5.79 l/min LVOT CI 2.21 L/min/m2 Pulmonic Valve Name Value Normal RVOT Doppler RVOT Peak Gradient
[2023-11-03] MEDS: CEFEPIME 2 GM/NS 50 ML 2 GM/50 ML BAG IVPB ×3 (00:02→23:56)
[2023-11-03] MEDS: ALBUTEROL SULFATE (*SP) AEROSOL 1 PUFF 2 PUFF INHALATION ×3 (02:30→19:54)
[2023-11-03 02:47] LABS: Basophils Percent Auto 0.4 % (0.2-1.2); Eosinophils Absolute Auto 0.3 K/mm3 (0-0.3); Eosinophils Percent Auto 3.3 % (0-4.4); Hemoglobin 10.8 g/dL (12.0-15.0); Immature Granulocyte Absolute 0.06 K/mm3 (0.00-0.031); Immature Granulocyte Percent A 0.7 % (0-0.5); Lymphocytes Absolute Auto 0.71 K/mm3 (0.9-3.2); Lymphocytes Percent Auto 8.7 % (18.3-44.2); Mean Corpuscular HGB Conc 30.9 g/dl (32-36); Mean Corpuscular Hemoglobin 27.1 pg (26-34); Mean Corpuscular Volume 87.9 fl (80-100); Mean Platelet Volume 8.9 fl (7.4-10.4); Monocytes Absolute Auto 0.4 K/mm3 (0.1-0.6); Neutrophils Absolute Auto 6.7 K/mm3 (1.3-6.7); Neutrophils Percent Auto 81.9 % (45.5-73.1); Platelet Count Result 201 k/mm3 (150-375); Red Blood Count 3.98 M/mm3 (4.2-5.4); Red Cell Distribution Width 15.4 % (11.5-14.5); White Blood Count 8.1 K/mm3 (4.5-10.0)
[2023-11-03 03:09] LABS: Alanine Aminotransferase 49 U/L (6-35); Albumin Level 3.2 g/dL (3.5-5.1); Alkaline Phosphatase 67 U/L (38-126); Anion Gap 5 mmol/L (8-16); Aspartate Amino Transferase 76 U/L (14-36); Bilirubin,Total 0.7 mg/dL (0.2-1.3); Blood Urea Nitrogen 17 mg/dL (7-17); Calcium 8.5 mg/dL (8.4-10.2); Carbon Dioxide 31 mmol/L (22-30); Chloride 101 mmol/L (98-107); Estimated CRCL calculation 91 ml/min; Estimated Glomerular Filt Rate > 60; Glucose 139 mg/dL (65-110); Potassium 3.3 mmol/L (3.4-5.0); Sodium 137 mmol/L (137-145)
[2023-11-03 03:19] LABS: Creatine Kinase 1072 U/L (30-135)
[2023-11-03 03:23] LABS: Vancomycin Trough 10.8 ug/mL (10.0-20.0)
[2023-11-03 03:56] LABS: Glucose Point of Care 141 mg/dl (65-105)
[2023-11-03] MEDS: VANCOMYCIN 1,500 MG/NS 500 ML 1,500 MG/500 ML BAG 150 MG IVPB ×2 (04:00→16:37)
[2023-11-03] MEDS: traMADol HCL (*CRX) 50 MG TABLET PO ×3 (05:21→20:13)
[2023-11-03] MEDS: FLUTICASONE/SALMETEROL 230-21 MCG INHALER 1 PUFF 2 PUFF INHALATION ×2 (08:21→19:54)
[2023-11-03 08:22] LABS: Glucose Point of Care 111 mg/dl (65-105)
--- NOTE | 2023-11-03 09:06 | PM.IMPN ---
Progress Note: A&P Assessment and Plan (1) Rhabdomyolysis: Qualifiers: Rhabdomyolysis type: non-traumatic Qualified Code(s): M62.82 - Rhabdomyolysis Code(s): M62.82 - Rhabdomyolysis Status: Acute Assessment and Plan: ?-rhabdomyolysis due to fall and extended down time down for at least 12 hours CK 2355 which is down from 3000 -continue to hold allopurinol (2) Fall: Qualifiers: Encounter type: initial encounter Qualified Code(s): W19.XXXA - Unspecified fall, initial encounter Code(s): W19.XXXA - Unspecified fall, initial encounter Status: Acute Assessment and Plan: Initiate fall precautions -up with assistance only -PT/OT eval and treat (3) Cellulitis: Qualifiers: Site of cellulitis: unspecified site Qualified Code(s): L03.90 - Cellulitis, unspecified Code(s): L03.90 - Cellulitis, unspecified Status: Acute Assessment and Plan: Chronic, ongoing bilateral lower extremities -continue cefepime -continue vancomycin -blood cultures pending -repeat CBC in the a.m., (4) Abnormal finding on urinalysis: Code(s): R82.90 - Unspecified abnormal findings in urine Status: Acute Assessment and Plan: Asymptomatic bacteriuria Abnormal urinalysis with nitrates positive but no bacteria, patient denies urinary symptoms -culture pending -monitor for s/s of infection (5) Laceration of face with delay in treatment: Qualifiers: Encounter type: initial encounter Qualified Code(s): S01.81XA - Laceration without foreign body of other part of head, initial encounter Code(s): S01.81XA - Laceration without foreign body of other part of head, initial encounter Status: Acute Assessment and Plan: -right cheek laceration, Steri-Strips applied -bilateral orbital ecchymosis (6) Obstructive sleep apnea: Code(s): G47.33 - Obstructive sleep apnea (adult) (pediatric) Status: Acute Assessment and Plan: -Unknown, patient had low oxygen saturations s/p: medication administration in the ED -continue oxygen titration as needed to keep SpO2 above 93% -patient does not CPAP at this time. May consider sleep apnea trial while inpatient (7) Morbid obesity with body mass index (BMI) greater than or equal to 50: Code(s): E66.01 - Morbid (severe) obesity due to excess calories Status: Acute Assessment and Plan: -initiate low-calorie diet (8) Transaminitis: Code(s): R74.01 - Elevation of levels of liver transaminase levels Status: Acute Assessment and Plan: Transaminitis/CT suggests possible cirrhosis, verses elevation due to rhabdomyolysis, or infection -will need to follow-up outpatient -recheck CMP in the a.m./continue to monitor (9) Type 2 diabetes mellitus: Qualifiers: Diabetes mellitus mcc insulin use: with mcc use Diabetes mellitus complication status: with skin complications Diabetes mellitus complication detail: with other skin complication Qualified Code(s): E11.628 - Type 2 diabetes mellitus with other skin complications; Z79.4 - senior living (current) use of insulin Code(s): E11.9 - Type 2 diabetes mellitus without complications Status: Acute Assessment and Plan: -continue bedside glucose management -continue bedside hypoglycemic management per protocol -continue corrective moderate -dose regimen (10) QT prolongation: Code(s): R94.31 - Abnormal electrocardiogram [ECG] [EKG] Status: Acute Assessment and Plan: -repeat EKG in the ER demonstrated QT interval 498 -continue to monitor telemetry. -avoid zofran, please alert MD with any reports nausea or vomiting (11) Nasal bone fracture: Qualifiers: Encounter type: initial encounter Fracture type: closed Qualified Code(s): S02.2XXA - Fracture of nasal bones, initial encounter for closed fracture Code(s): S02.2XXA - F
--- NOTE | 2023-11-03 09:09 | P.CDI_ITS ---
CDI Query Clarification Request Documentation in the medical record indicates that this patient has been admitted with or diagnosed as having Diabetes mellitus and cellulitis. Please clarify if there is a cause and effect relationship between Diabetes Mellitus and Cellulitis. * There is a cause and effect relationship between diabetes mellitus and cellulitis. * There is not a cause and effect relationship between diabetes mellitus and cellulitis. * Unknown if there is a cause and effect relationship between diabetes mellitus and cellulitis. <Marleny Olivier RN - Last Filed: 11/03/23 09:16> Clarified Diagnosis Clarified Diagnosis: Unknown if there was a cause and effect relationship between diabetes mellitus and cellulitis <Teresa Echeverria APRN - Last Filed: 11/03/23 16:39>
[2023-11-03] MEDS: INSULIN ASPART (*BKC) 100 UNITS/ML 15 UNITS SUB-Q (10:22)
[2023-11-03] MEDS: CYCLOBENZAPRINE HCL 10 MG TABLET PO ×3 (10:29→16:37)
[2023-11-03] MEDS: buPROPion HCL XL (24 HR) 150 MG TABCR 300 MG PO (10:30)
[2023-11-03] MEDS: SERTRALINE HCL 50 MG TABLET 100 MG PO ×2 (10:32→20:14)
[2023-11-03 11:33] LABS: Glucose Point of Care 112 mg/dl (65-105)
[2023-11-03] MEDS: ENOXAPARIN 40 MG/0.4 ML SYRINGE SUB-Q ×2 (11:45→20:14)
[2023-11-03] MEDS: TOLNAFTATE 1% POWDER 45 GM BTL 1 APPLIC TOPICAL ×2 (12:01→20:20)
[2023-11-03] MEDS: TRIAMCINOLONE ACET 0.1% CREAM 15 GM TUBE 1 APPLIC TOPICAL ×2 (12:01→20:20)
[2023-11-03] MEDS: PERFLUTREN LIPID MICROSPHERES 1.5 ML VIAL DILUTED TO 10 ML TOTAL VOLUME IV PUSH (13:15)
[2023-11-03 14:06] LABS: Glucose Point of Care 83 mg/dl (65-105)
--- NOTE | 2023-11-03 14:45 | IVDEFINITY ---
Prior to administration of IV Definity the patient was educated on the risks and benefits of the imaging enhancing agent including potential adverse side effects. The patient verbalized understanding. Allergies were verified. No exclusion criteria were identified and at least one of the following inclusion criteria were met: 1) physician request, 2) patient technically difficult to image (per the [place] [employer] guidelines of two or more segments not discernable within the apical view), or 3) questionable left ventricular function. ?
[2023-11-03 17:53] LABS: Glucose Point of Care 95 mg/dl (65-105)
[2023-11-03] MEDS: traZODone HCL 50 MG TABLET 100 MG PO (20:30)
[2023-11-03 20:35] LABS: Glucose Point of Care 151 mg/dl (65-105)
[2023-11-03] MEDS: LACTATED RINGERS 1,000 ML 75 ML IV CONT (20:35)
[2023-11-04] VITALS (14 sets, daily range): BP systolic 128–144; BP diastolic 54–58; PULSE 74–85; RESP 16–24; TEMP 36.4–36.7; O2SAT 93–99
[2023-11-04 00:33] LABS: Glucose Point of Care 126 mg/dl (65-105)
[2023-11-04] MEDS: ALBUTEROL SULFATE (*SP) AEROSOL 1 PUFF 2 PUFF INHALATION ×4 (02:11→19:55)
[2023-11-04] MEDS: VANCOMYCIN 1,500 MG/NS 500 ML 1,500 MG/500 ML BAG 150 MG IVPB (05:00)
--- NOTE | 2023-11-04 05:12 | ECG_ITS ---
Measurements Intervals [place] Rate: 77 P: 47 WY: 153 QRS: -37 QRSD: 161 T: 0 QT: 410 QTc: 466 Interpretive Statements SINUS RHYTHM MARKED LEFT AXIS DEVIATION [QRS AXIS < -30] RIGHT BUNDLE BRANCH BLOCK [120+ ms QRS DURATION, UPRIGHT V1, 40+ ms S IN I/aVL/V4/V5/V6] COMPARED TO ECG 11/01/2023 15:26:00 NO SIGNIFICANT CHANGES Electronically Signed On 11-04-2023 15:23:01 MEDICAL OFFICE CLERK by Jose Castellano M.D.
[2023-11-04] MEDS: traMADol HCL (*CRX) 50 MG TABLET PO ×3 (05:17→23:26)
[2023-11-04 05:31] LABS: Basophils Percent Auto 0.4 % (0.2-1.2); Eosinophils Absolute Auto 0.3 K/mm3 (0-0.3); Eosinophils Percent Auto 4.3 % (0-4.4); Hemoglobin 10.8 g/dL (12.0-15.0); Immature Granulocyte Absolute 0.05 K/mm3 (0.00-0.031); Immature Granulocyte Percent A 0.7 % (0-0.5); Lymphocytes Absolute Auto 0.61 K/mm3 (0.9-3.2); Mean Corpuscular HGB Conc 30.9 g/dl (32-36); Mean Corpuscular Hemoglobin 27.5 pg (26-34); Mean Corpuscular Volume 89.1 fl (80-100); Mean Platelet Volume 8.8 fl (7.4-10.4); Monocytes Absolute Auto 0.4 K/mm3 (0.1-0.6); Monocytes Percent Auto 5.3 % (2.6-8.5); Neutrophils Absolute Auto 5.5 K/mm3 (1.3-6.7); Neutrophils Percent Auto 80.3 % (45.5-73.1); Platelet Count Result 206 k/mm3 (150-375); Red Blood Count 3.93 M/mm3 (4.2-5.4); Red Cell Distribution Width 15.4 % (11.5-14.5); White Blood Count 6.8 K/mm3 (4.5-10.0)
[2023-11-04 05:43] LABS: Alanine Aminotransferase 49 U/L (6-35); Albumin Level 3.3 g/dL (3.5-5.1); Alkaline Phosphatase 65 U/L (38-126); Anion Gap 1 mmol/L (8-16); Aspartate Amino Transferase 63 U/L (14-36); Bilirubin,Total 0.6 mg/dL (0.2-1.3); Blood Urea Nitrogen 14 mg/dL (7-17); Calcium 8.4 mg/dL (8.4-10.2); Carbon Dioxide 32 mmol/L (22-30); Chloride 103 mmol/L (98-107); Estimated CRCL calculation 81 ml/min; Estimated Glomerular Filt Rate > 60; Glucose 121 mg/dL (65-110); Potassium 3.5 mmol/L (3.4-5.0); Sodium 136 mmol/L (137-145)
[2023-11-04] MEDS: FLUTICASONE/SALMETEROL 230-21 MCG INHALER 1 PUFF 2 PUFF INHALATION ×2 (07:56→19:55)
[2023-11-04 09:08] LABS: Glucose Point of Care 107 mg/dl (65-105)
[2023-11-04] MEDS: SERTRALINE HCL 50 MG TABLET 100 MG PO ×2 (09:16→20:12)
[2023-11-04] MEDS: CYCLOBENZAPRINE HCL 10 MG TABLET PO ×3 (09:16→17:05)
[2023-11-04] MEDS: buPROPion HCL XL (24 HR) 150 MG TABCR 300 MG PO (09:17)
[2023-11-04] MEDS: ENOXAPARIN 40 MG/0.4 ML SYRINGE SUB-Q ×2 (09:17→20:12)
[2023-11-04] MEDS: TOLNAFTATE 1% POWDER 45 GM BTL 1 APPLIC TOPICAL ×2 (09:19→20:10)
--- NOTE | 2023-11-04 11:31 | PM.IMPN ---
Progress Note: A&P Assessment and Plan (1) Rhabdomyolysis: Qualifiers: Rhabdomyolysis type: non-traumatic Qualified Code(s): M62.82 - Rhabdomyolysis Code(s): M62.82 - Rhabdomyolysis Status: Acute Assessment and Plan: ?-rhabdomyolysis due to fall and extended down time down for at least 12 hours -resolved -restart allopurinol when appropriate (2) Fall: Qualifiers: Encounter type: initial encounter Qualified Code(s): W19.XXXA - Unspecified fall, initial encounter Code(s): W19.XXXA - Unspecified fall, initial encounter Status: Acute Assessment and Plan: Initiate fall precautions -up with assistance only -PT/OT eval and treat (3) Cellulitis: Qualifiers: Site of cellulitis: unspecified site Qualified Code(s): L03.90 - Cellulitis, unspecified Code(s): L03.90 - Cellulitis, unspecified Status: Acute Assessment and Plan: Chronic, ongoing bilateral lower extremities -continue cefepime -continue vancomycin -blood cultures pending -repeat CBC in the a.m. 11/04 update: Chronic edema and erythema appear more likely due to lipodermatosclerosis. She has received 3 days of cefepime and vancomycin will stop that now. Continue to monitor. She does not appear septic/toxic (4) Abnormal finding on urinalysis: Code(s): R82.90 - Unspecified abnormal findings in urine Status: Acute Assessment and Plan: Asymptomatic bacteriuria Abnormal urinalysis with nitrates positive but no bacteria, patient denies urinary symptoms -culture pending -monitor for s/s of infection (5) Laceration of face with delay in treatment: Qualifiers: Encounter type: initial encounter Qualified Code(s): S01.81XA - Laceration without foreign body of other part of head, initial encounter Code(s): S01.81XA - Laceration without foreign body of other part of head, initial encounter Status: Acute Assessment and Plan: -right cheek laceration, Steri-Strips applied -bilateral orbital ecchymosis (6) Obstructive sleep apnea: Code(s): G47.33 - Obstructive sleep apnea (adult) (pediatric) Status: Acute Assessment and Plan: -patient has longstanding history of STEVE but she is not compliant with CPAP due to its uncomfortableness. She continues to refuse to use it while inpatient at the hospital. She has been counseled. -she is currently requiring low-dose oxygen at 1 L nasal cannula. This may be due to longstanding [facility] STEVE overlap. -however, she does have crackles diffusely and lower extremity edema. Will start Lasix 40 mg IV b.i.d. and see if this helps lighten her up. Surface echo has been conducted this admission and demonstrates good EF but it was a poor study due to her body habitus and there was no comment on the diastolic function. She should follow up with pulmonology in the outpatient setting. (7) Morbid obesity with body mass index (BMI) greater than or equal to 50: Code(s): E66.01 - Morbid (severe) obesity due to excess calories Status: Acute Assessment and Plan: -initiate low-calorie diet (8) Transaminitis: Code(s): R74.01 - Elevation of levels of liver transaminase levels Status: Acute Assessment and Plan: Transaminitis/CT suggests possible cirrhosis, verses elevation due to rhabdomyolysis, or infection -will need to follow-up outpatient -continue to monitor (9) Type 2 diabetes mellitus: Qualifiers: Diabetes mellitus health data analyst insulin use: with health data analyst use Diabetes mellitus complication status: with skin complications Diabetes mellitus complication detail: with other skin complication Qualified Code(s): E11.628 - Type 2 diabetes mellitus with other skin complications; Z79.4 - detention (current) use of insulin Code(s): E11.9 - Type 2 diabetes mellitus without complications Status: Acute Assessment and Plan: -continue bedside
[2023-11-04 11:57] LABS: NT Pro B Type Natriuretic Pept 855 pg/mL (19.9-100)
[2023-11-04] MEDS: FUROSEMIDE INJ 40 MG/4 ML VIAL IV PUSH ×2 (12:16→17:07)
[2023-11-04] MEDS: HYDROcodone/acetaminophen (*CRX) 5-325 MG TABLET 1 TAB PO (12:16)
[2023-11-04 12:49] LABS: Troponin I < 0.012 ng/mL (0.000-0.034)
[2023-11-04 12:58] LABS: Glucose Point of Care 92 mg/dl (65-105)
[2023-11-04 12:58] LABS: Glucose Point of Care 87 mg/dl (65-105)
--- NOTE | 2023-11-04 14:51 | PCOTNOTE ---
Attempted to see Patient at this time. Patient declined to participate, stated she needs rest, she had enough/a lot of therapy earlier and just recently returned back to bed. Patient stated come back tomorrow, to tired today .
[2023-11-04 17:26] LABS: Glucose Point of Care 141 mg/dl (65-105)
[2023-11-04] MEDS: traZODone HCL 50 MG TABLET 100 MG PO (20:13)
[2023-11-04 21:21] LABS: Glucose Point of Care 136 mg/dl (65-105)
[2023-11-05] VITALS (19 sets, daily range): BP systolic 111–126; BP diastolic 53–62; PULSE 69–82; RESP 14–20; TEMP 36.5–36.7; O2SAT 87–98
[2023-11-05] MEDS: ALBUTEROL SULFATE (*SP) AEROSOL 1 PUFF 2 PUFF INHALATION ×4 (02:44→20:38)
[2023-11-05 06:04] LABS: Basophils Percent Auto 0.4 % (0.2-1.2); Eosinophils Absolute Auto 0.4 K/mm3 (0-0.3); Hematocrit 35.3 % (37.0-47.0); Immature Granulocyte Absolute 0.05 K/mm3 (0.00-0.031); Immature Granulocyte Percent A 0.7 % (0-0.5); Lymphocytes Absolute Auto 0.72 K/mm3 (0.9-3.2); Lymphocytes Percent Auto 10.4 % (18.3-44.2); Mean Corpuscular HGB Conc 31.2 g/dl (32-36); Mean Corpuscular Hemoglobin 27.4 pg (26-34); Mean Corpuscular Volume 87.8 fl (80-100); Mean Platelet Volume 8.8 fl (7.4-10.4); Monocytes Absolute Auto 0.4 K/mm3 (0.1-0.6); Monocytes Percent Auto 5.5 % (2.6-8.5); Neutrophils Absolute Auto 5.4 K/mm3 (1.3-6.7); Platelet Count Result 220 k/mm3 (150-375); Red Blood Count 4.02 M/mm3 (4.2-5.4); Red Cell Distribution Width 15.4 % (11.5-14.5)
[2023-11-05 06:23] LABS: Alanine Aminotransferase 48 U/L (6-35); Albumin Level 3.2 g/dL (3.5-5.1); Alkaline Phosphatase 64 U/L (38-126); Anion Gap 3 mmol/L (8-16); Aspartate Amino Transferase 53 U/L (14-36); Bilirubin,Total 0.5 mg/dL (0.2-1.3); Blood Urea Nitrogen 13 mg/dL (7-17); Calcium 8.7 mg/dL (8.4-10.2); Carbon Dioxide 34 mmol/L (22-30); Chloride 100 mmol/L (98-107); Estimated CRCL calculation 92 ml/min; Estimated Glomerular Filt Rate > 60; Glucose 119 mg/dL (65-110); Potassium 3.6 mmol/L (3.4-5.0); Sodium 137 mmol/L (137-145)
[2023-11-05] MEDS: FLUTICASONE/SALMETEROL 230-21 MCG INHALER 1 PUFF 2 PUFF INHALATION ×2 (07:50→20:38)
[2023-11-05 08:13] LABS: Glucose Point of Care 141 mg/dl (65-105)
[2023-11-05] MEDS: buPROPion HCL XL (24 HR) 150 MG TABCR 300 MG PO (08:51)
[2023-11-05] MEDS: SERTRALINE HCL 50 MG TABLET 100 MG PO ×2 (08:52→19:57)
[2023-11-05] MEDS: CYCLOBENZAPRINE HCL 10 MG TABLET PO ×3 (08:52→18:24)
[2023-11-05] MEDS: INSULIN ASPART (*BKC) 100 UNITS/ML 15 UNITS SUB-Q ×2 (08:53→18:34)
[2023-11-05] MEDS: ENOXAPARIN 40 MG/0.4 ML SYRINGE SUB-Q ×2 (08:53→19:57)
[2023-11-05] MEDS: TOLNAFTATE 1% POWDER 45 GM BTL 1 APPLIC TOPICAL ×2 (08:54→19:58)
[2023-11-05] MEDS: FUROSEMIDE INJ 40 MG/4 ML VIAL IV PUSH ×2 (08:54→18:24)
[2023-11-05] MEDS: traMADol HCL (*CRX) 50 MG TABLET PO ×2 (08:59→18:24)
--- NOTE | 2023-11-05 10:38 | PM.IMPN ---
Progress Note: A&P Assessment and Plan (1) Rhabdomyolysis: Qualifiers: Rhabdomyolysis type: non-traumatic Qualified Code(s): M62.82 - Rhabdomyolysis Code(s): M62.82 - Rhabdomyolysis Status: Acute Assessment and Plan: ?-rhabdomyolysis due to fall and extended down time down for at least 12 hours -resolved -restart allopurinol (2) Fall: Qualifiers: Encounter type: initial encounter Qualified Code(s): W19.XXXA - Unspecified fall, initial encounter Code(s): W19.XXXA - Unspecified fall, initial encounter Status: Acute Assessment and Plan: Initiate fall precautions -up with assistance only -PT/OT eval and treat -pending disposition to swing bed at [facility] (3) Cellulitis: Qualifiers: Site of cellulitis: unspecified site Qualified Code(s): L03.90 - Cellulitis, unspecified Code(s): L03.90 - Cellulitis, unspecified Status: Acute Assessment and Plan: 11/04 update: Chronic edema and erythema appear more likely due to lipodermatosclerosis. She has received 3 days of cefepime and vancomycin will stop that now. Continue to monitor. She does not appear septic/toxic (4) Abnormal finding on urinalysis: Code(s): R82.90 - Unspecified abnormal findings in urine Status: Acute Assessment and Plan: Asymptomatic bacteriuria Negative urine culture (5) Laceration of face with delay in treatment: Qualifiers: Encounter type: initial encounter Qualified Code(s): S01.81XA - Laceration without foreign body of other part of head, initial encounter Code(s): S01.81XA - Laceration without foreign body of other part of head, initial encounter Status: Acute Assessment and Plan: -right cheek laceration, Steri-Strips applied -bilateral orbital ecchymosis (6) Obstructive sleep apnea: Code(s): G47.33 - Obstructive sleep apnea (adult) (pediatric) Status: Acute Assessment and Plan: -patient has longstanding history of STEVE but she is not compliant with CPAP due to its uncomfortableness. She continues to refuse to use it while inpatient at the hospital. She has been counseled. -she is currently requiring low-dose oxygen at 1 L nasal cannula. This may be due to longstanding OHS STEVE overlap. -however, she does have crackles diffusely and lower extremity edema. Will start Lasix 40 mg IV b.i.d. and see if this helps lighten her up. Surface echo has been conducted this admission and demonstrates good EF but it was a poor study due to her body habitus and there was no comment on the diastolic function. She should follow up with pulmonology in the outpatient setting. On November 05 the patient continues to be noncompliant with CPAP and requires 1-2 L at night. She will probably need this ongoing. In the daytime currently on 1 L nasal cannula but there has been no attempt to wean this. As nursing staff to attempt to wean. Will adjust Lasix based on this. (7) Morbid obesity with body mass index (BMI) greater than or equal to 50: Code(s): E66.01 - Morbid (severe) obesity due to excess calories Status: Acute Assessment and Plan: -initiate low-calorie diet (8) Transaminitis: Code(s): R74.01 - Elevation of levels of liver transaminase levels Status: Acute Assessment and Plan: Transaminitis/CT suggests possible cirrhosis, verses elevation due to rhabdomyolysis, or infection -will need to follow-up outpatient -continue to monitor, resolving. (9) Type 2 diabetes mellitus: Qualifiers: Diabetes mellitus half-way insulin use: with watermaster use Diabetes mellitus complication status: with skin complications Diabetes mellitus complication detail: with other skin complication Qualified Code(s): E11.628 - Type 2 diabetes mellitus with other skin complications; Z79.4 - watermaster (current) use of insulin Code(s): E11.9 - Type 2 diabetes mellitus
[2023-11-05 12:17] LABS: Glucose Point of Care 73 mg/dl (65-105)
[2023-11-05 17:28] LABS: Glucose Point of Care 124 mg/dl (65-105)
[2023-11-05 20:46] LABS: Glucose Point of Care 80 mg/dl (65-105)
[2023-11-05 20:46] LABS: Glucose Point of Care 68 mg/dl (65-105)
[2023-11-05 20:46] LABS: Glucose Point of Care 64 mg/dl (65-105)
[2023-11-05] MEDS: traZODone HCL 50 MG TABLET 100 MG PO (21:54)
[2023-11-06] VITALS (7 sets, daily range): BP systolic 111–149; BP diastolic 61–72; PULSE 74–83; RESP 16–18; TEMP 36.2–36.6; O2SAT 92–94
[2023-11-06] MEDS: ALBUTEROL SULFATE (*SP) AEROSOL 1 PUFF 2 PUFF INHALATION ×3 (03:12→13:34)
[2023-11-06 06:17] LABS: Basophils Percent Auto 0.6 % (0.2-1.2); Eosinophils Absolute Auto 0.4 K/mm3 (0-0.3); Eosinophils Percent Auto 5.5 % (0-4.4); Hematocrit 36.8 % (37.0-47.0); Hemoglobin 11.6 g/dL (12.0-15.0); Immature Granulocyte Absolute 0.09 K/mm3 (0.00-0.031); Immature Granulocyte Percent A 1.3 % (0-0.5); Lymphocytes Absolute Auto 0.92 K/mm3 (0.9-3.2); Lymphocytes Percent Auto 13.2 % (18.3-44.2); Mean Corpuscular HGB Conc 31.5 g/dl (32-36); Mean Corpuscular Hemoglobin 27.2 pg (26-34); Mean Corpuscular Volume 86.2 fl (80-100); Mean Platelet Volume 8.8 fl (7.4-10.4); Monocytes Absolute Auto 0.4 K/mm3 (0.1-0.6); Monocytes Percent Auto 5.5 % (2.6-8.5); Neutrophils Absolute Auto 5.2 K/mm3 (1.3-6.7); Neutrophils Percent Auto 73.9 % (45.5-73.1); Platelet Count Result 224 k/mm3 (150-375); Red Blood Count 4.27 M/mm3 (4.2-5.4); Red Cell Distribution Width 15.6 % (11.5-14.5)
[2023-11-06 06:25] LABS: Alanine Aminotransferase 40 U/L (6-35); Albumin Level 3.2 g/dL (3.5-5.1); Alkaline Phosphatase 60 U/L (38-126); Anion Gap 3 mmol/L (8-16); Aspartate Amino Transferase 47 U/L (14-36); Bilirubin,Total 0.7 mg/dL (0.2-1.3); Blood Urea Nitrogen 19 mg/dL (7-17); Calcium 8.8 mg/dL (8.4-10.2); Carbon Dioxide 34 mmol/L (22-30); Chloride 98 mmol/L (98-107); Estimated CRCL calculation 91 ml/min; Estimated Glomerular Filt Rate > 60; Glucose 102 mg/dL (65-110); Potassium 3.6 mmol/L (3.4-5.0); Sodium 135 mmol/L (137-145)
[2023-11-06] MEDS: traMADol HCL (*CRX) 50 MG TABLET PO (08:00)
[2023-11-06] MEDS: SERTRALINE HCL 50 MG TABLET 100 MG PO (08:01)
[2023-11-06] MEDS: buPROPion HCL XL (24 HR) 150 MG TABCR 300 MG PO (08:01)
[2023-11-06] MEDS: CYCLOBENZAPRINE HCL 10 MG TABLET PO (08:01)
[2023-11-06] MEDS: TOLNAFTATE 1% POWDER 45 GM BTL 1 APPLIC TOPICAL (08:02)
[2023-11-06] MEDS: ENOXAPARIN 40 MG/0.4 ML SYRINGE SUB-Q (08:02)
[2023-11-06] MEDS: FUROSEMIDE INJ 40 MG/4 ML VIAL IV PUSH (08:02)
[2023-11-06 08:37] LABS: Glucose Point of Care 96 mg/dl (65-105)
[2023-11-06] MEDS: FLUTICASONE/SALMETEROL 230-21 MCG INHALER 1 PUFF 2 PUFF INHALATION (08:37)
[2023-11-06 11:41] LABS: Glucose Point of Care 115 mg/dl (65-105)
--- NOTE | 2023-11-06 12:54 | PM.DS ---
DS: Admitting Diagnosis Discharge Date November 06, 2023 Admitting Diagnosis Fall at home DS: Discharge Diagnosis Discharge Diagnosis (1) Nasal bone fracture: Qualifiers: Encounter type: initial encounter Fracture type: closed Qualified Code(s): S02.2XXA - Fracture of nasal bones, initial encounter for closed fracture Code(s): S02.2XXA - Fracture of nasal bones, initial encounter for closed fracture Status: Acute (2) Type 2 diabetes mellitus: Qualifiers: Diabetes mellitus fpc insulin use: with fpc use Diabetes mellitus complication status: with skin complications Diabetes mellitus complication detail: with other skin complication Qualified Code(s): E11.628 - Type 2 diabetes mellitus with other skin complications; Z79.4 - intermission coordinator (current) use of insulin Code(s): E11.9 - Type 2 diabetes mellitus without complications Status: Acute (3) Obstructive sleep apnea: Code(s): G47.33 - Obstructive sleep apnea (adult) (pediatric) Status: Acute (4) Transaminitis: Code(s): R74.01 - Elevation of levels of liver transaminase levels Status: Acute (5) Morbid obesity with body mass index (BMI) greater than or equal to 50: Code(s): E66.01 - Morbid (severe) obesity due to excess calories Status: Acute (6) Abnormal finding on urinalysis: Code(s): R82.90 - Unspecified abnormal findings in urine Status: Acute (7) Rhabdomyolysis: Qualifiers: Rhabdomyolysis type: non-traumatic Qualified Code(s): M62.82 - Rhabdomyolysis Code(s): M62.82 - Rhabdomyolysis Status: Acute (8) Fall: Qualifiers: Encounter type: initial encounter Qualified Code(s): W19.XXXA - Unspecified fall, initial encounter Code(s): W19.XXXA - Unspecified fall, initial encounter Status: Acute DS: Summary Hospital Course Hospital Course: A 68-year-old white female with a past medical history morbid obesity, chronic venous stasis, STEVE intolerant to CPAP noncompliant, insulin-dependent type 2 diabetes mellitus, gout, chronic insomnia, depression anxiety, arthritis, eczema, fibromyalgia, hypertension, polymyalgia rheumatica, psoriasis presents after a fall at home. Trauma workup on admission included a head CT which was negative for acute intracranial process although a mildly depressed right nasal bone fracture was identified. CT chest abdomen pelvis demonstrated multiple sub 6 mm pulmonary nodules and hepatomegaly with possible cirrhosis. Apparently the patient was down for at least 12 hours and she presented with rhabdomyolysis. This resolved status post fluid resuscitation. 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 Urinalysis was abnormal however the urine culture was negative. Steri-Strips were applied to the right cheek laceration and she had bilateral orbital ecchymosis which was stable. As for her transaminitis that did improve and the CT suggested hepatomegaly so this should be follow up as an outpatient. Her multiple substance 6 mm pulmonary nodules should be followed up as well with reimaging. Her aspart t.i.d. was decreased from 30 units to 15 units and her sugars were well controlled with that. She did require 1 L nasal cannula intermittently. She continued to be noncompliant with the CPAP and I encouraged her to use that. She did receive some doses of Lasix. On 11/06/2023 the patient is stable for discharge to [facility]. She will receive physical therapy. Patient was full code during her admission. Time Spent with Patient Time attestation: Total time spent providing and/or coordinating discharge services: Exam Const: General: comfortable and no acute distress Other: Morbidly obese. A and O x3 Eyes: Pupils: Equal, round and reactive pupils present Neck:
== END 2023-11-06 14:30 | disposition swing bed (61) | DRG 565 ==
LOC: ANHED 15:59 → ANH2MED 17:21
PROVIDERS: Emergency Medicine; Internal Medicine; Nurse Practitioner; Admitting Provider Internal Medicine; Emergency Provider Student in an Organized Health Care Education/Training Program; PCP Internal Medicine; Visit Provider General Practice
DX: T79.6XXA Traumatic ischemia of muscle, initial encounter (principal); L03.115 Cellulitis of right lower limb; Z68.45 Body mass index [BMI] 70 or greater, adult; L03.116 Cellulitis of left lower limb; I83.12 Varicose veins of left lower extremity with inflammation; I83.11 Varicose veins of right lower extremity with inflammation; S02.2XXA Fracture of nasal bones, initial encounter for closed fracture; S01.81XA Laceration without foreign body of other part of head, initial encounter; W01.0XXA Fall on same level from slipping, tripping and stumbling without subsequent striking against object, initial encounter; E11.42 Type 2 diabetes mellitus with diabetic polyneuropathy; G47.33 Obstructive sleep apnea (adult) (pediatric); E66.01 Morbid (severe) obesity due to excess calories; M19.90 Unspecified osteoarthritis, unspecified site; M79.7 Fibromyalgia; I10 Essential (primary) hypertension; R82.90 Unspecified abnormal findings in urine; M35.3 Polymyalgia rheumatica; L40.9 Psoriasis, unspecified; N39.41 Urge incontinence; R94.31 Abnormal electrocardiogram [ECG] [EKG]; R21 Rash and other nonspecific skin eruption; R91.8 Other nonspecific abnormal finding of lung field; Z79.4 Long term (current) use of insulin; Z90.49 Acquired absence of other specified parts of digestive tract; Z90.710 Acquired absence of both cervix and uterus; Z87.891 Personal history of nicotine dependence; R16.0 Hepatomegaly, not elsewhere classified
CPT/HCPCS: 36415; 70450; 70486; 71045; 71260; 72125; 72129; 72132; 74177; 80053; 80202; 81001; 82550; 82948; 83036; 83605; 83735; 83880; 84484; 85025; 85610; 85730; 86140; 87040; 87086; 87637; 90471; 90715; 93005; 94640; 96361; 96365; 96375; 97110; 97116; 97161; 97165; 97530; 97535; 99285; A9270; C8929; J0692; J1650; J1815; J1940; J2270; J2405; J3370; J7120; Q9957; Q9967

== ENCOUNTER 2023-11-06 15:21 | Inpatient (IN) | payer MEDICARE, SELFPAY ==
[2023-11-06 15:29] VITALS: BMI 59.7
--- NOTE | 2023-11-06 15:30 | ADMGEN ---
This patient, Yanni Kraus, was admitted to 2nd Floor Room 205-1. Patient/family oriented to hospital policies and general routines including ID bracelet, bed and alarms, visiting hours, pain management, procedures, bathroom and other care routines, personal items, smoking policy, room service/diet, and visiting hours. Information on how to activate the Rapid Response Team has been discussed. Patient/Family are encouraged to report perceived risks to care and to ask questions if they do not understand what they are told or what they should do.
[2023-11-06] MEDS: traMADol HCL (*CRX) 50 MG TABLET PO ×2 (15:56→21:21)
[2023-11-06 16:00] VITALS: BP 127/58; PULSE 76; RESP 17; TEMP 36.5; O2SAT 94
[2023-11-06 17:08] LABS: Glucose Point of Care 104 mg/dl (65-105)
[2023-11-06] MEDS: INSULIN HUMAN LISPRO (*BKC) 1,000 UNITS/10 ML VIAL 15 UNITS SUB-Q (17:58)
[2023-11-06] MEDS: CYCLOBENZAPRINE HCL 10 MG TABLET PO (17:58)
[2023-11-06] MEDS: SALMET XINAFT/FLUTIC PROPIN 500 MCG/50 MCG INH CAP 1 PUFF INHALATION (18:16)
[2023-11-06] MEDS: ALBUTEROL SULFATE (*SP) INHALER 2 PUFF INHALATION (18:17)
[2023-11-06] MEDS: traZODone HCL 50 MG TABLET 100 MG PO (21:20)
[2023-11-06] MEDS: SERTRALINE HCL 50 MG TABLET 100 MG PO (21:20)
[2023-11-06] MEDS: TOLNAFTATE 1% POWDER 45 GM BTL 1 APPLIC TOPICAL (21:21)
[2023-11-07] VITALS: BP 132/65; PULSE 67; RESP 19; TEMP 36.6; O2SAT 91
[2023-11-07] MEDS: traMADol HCL (*CRX) 50 MG TABLET PO ×2 (03:23→10:19)
[2023-11-07] MEDS: ALBUTEROL SULFATE (*SP) INHALER 2 PUFF INHALATION ×3 (06:35→18:41)
[2023-11-07] MEDS: SALMET XINAFT/FLUTIC PROPIN 500 MCG/50 MCG INH CAP 1 PUFF INHALATION ×2 (06:35→18:41)
[2023-11-07 08:00] VITALS: BP 113/48; PULSE 81; RESP 16; TEMP 36.5; O2SAT 96
[2023-11-07] MEDS: buPROPion HCL XL (24 HR) 150 MG TABCR 300 MG PO (10:18)
[2023-11-07] MEDS: SERTRALINE HCL 50 MG TABLET 100 MG PO ×2 (10:19→20:59)
[2023-11-07] MEDS: HYDROXYCHLOROQUINE SULFATE 200 MG TABLET PO (10:19)
[2023-11-07] MEDS: allopurinoL 300 MG TABLET PO (10:20)
[2023-11-07] MEDS: CYCLOBENZAPRINE HCL 10 MG TABLET PO ×3 (10:20→18:41)
[2023-11-07 10:21] LABS: Glucose Point of Care 158 mg/dl (65-105)
--- NOTE | 2023-11-07 10:56 | PM.IMHP ---
H&P: HPI History of Present Illness Date/Time: 11/07/23 10:56 Chief Complaint: physical deconditioning s/p fall at home with rhabdomyolysis (corrected) and nasal fracture Narrative: Yanni Kraus is a 68-year-old white female with a past medical history morbid obesity, chronic venous stasis, STEVE intolerant to CPAP noncompliant, insulin-dependent type 2 diabetes mellitus, gout, chronic insomnia, depression anxiety, arthritis, eczema, fibromyalgia, hypertension, polymyalgia rheumatica, psoriasis presented to [facility] after a fall at home. Trauma workup on admission included a head CT which was negative for acute intracranial process although a mildly depressed right nasal bone fracture was identified.? CT chest abdomen pelvis demonstrated multiple sub 6 mm pulmonary nodules and hepatomegaly with possible cirrhosis. Apparently the patient was down for at least 12 hours and she presented with rhabdomyolysis.? This resolved status post fluid resuscitation.? 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 Urinalysis was abnormal however the urine culture was negative.? Steri-Strips were applied to the right cheek laceration and she had bilateral orbital ecchymosis which was stable. As for her transaminitis that did improve and the CT suggested hepatomegaly so this should be follow up as an outpatient.? Her multiple substance 6 mm pulmonary nodules should be followed up as well with reimaging.? Her aspart t.i.d. was decreased from 30 units to 15 units and her sugars were well controlled with that. She did require 1 L nasal cannula intermittently.? She continued to be noncompliant with the CPAP and I encouraged her to use that.? She did receive some doses of Lasix. Patient is now being admitted to [facility] for Swing bed for PT/OT and strengthening before plan to return home. Patient currently complains of mild shortness of breath (clear lungs and no respiratory distress) pain all over her body (reports Fibromyalgia flare plus pain from laying on the ground) and pain of breasts bilateral. Physical exam reveals bruising across anterior breasts bilateral worse on the left and yeasty rash under breasts bilateral. Review of Systems Review of Systems: All systems reviewed & are unremarkable except as noted in HPI and below PMFSH Past Medical History Medical History Arthritis Asthma Depression Eczema ESR raised Fibromyalgia (~2006) Gout Hypertension Morbid obesity with body mass index (BMI) greater than or equal to 50 Obstructive sleep apnea PMR (polymyalgia rheumatica) Psoriasis Umbilical hernia Surgical History Surgical History H/O section X2 History of appendectomy History of cholecystectomy History of total abdominal hysterectomy Family History Family History Other Cancer Cerebrovascular accident Social History Social History Social History: She lives alone in her own home. She has a daughter that lives in our way and a son that lives 2 hours away. She smoked less than a pack of cigarettes per day from the time she was a teenager until approximately 1999. She denies any excessive alcohol use or illicit substance use. She ambulates with a walker. Code status: Full code Surrogate decision maker: Vicki Padilla (daughter) Smoking packs per day: 2 Smoking cigarettes per day: 40.0 Years smoked: 20 Smoking pack-years: 40.00 Smoking status: Former smoker Tobacco type: cigarettes Alcohol intake: never Drinks per week: 1 Substance use: never Do You Feel Safe in your Home?: Yes Lack of Transportation: YES Lack of Food: Never True Current Housing:
[2023-11-07 11:44] LABS: Glucose Point of Care 106 mg/dl (65-105)
[2023-11-07 12:09] VITALS: PULSE 64
[2023-11-07] MEDS: PROPRANOLOL HCL 60 MG CAPSULE CR PO (12:09)
[2023-11-07] MEDS: HYDROcodone/acetaminophen (*CRX) 5-325 MG TABLET 1 TAB PO ×3 (12:09→20:59)
[2023-11-07] MEDS: TOLNAFTATE 1% POWDER 45 GM BTL 1 APPLIC TOPICAL ×2 (12:10→21:04)
[2023-11-07 16:00] VITALS: BP 122/58; PULSE 66; RESP 16; TEMP 36.1; O2SAT 93
[2023-11-07 16:39] LABS: Glucose Point of Care 107 mg/dl (65-105)
[2023-11-07] MEDS: ENOXAPARIN 40 MG/0.4 ML SYRINGE SUB-Q (21:00)
[2023-11-07 21:09] LABS: Glucose Point of Care 102 mg/dl (65-105)
[2023-11-08] VITALS: BP 128/58; PULSE 62; RESP 18; TEMP 36.3; O2SAT 90
[2023-11-08] MEDS: ALBUTEROL SULFATE (*SP) INHALER 2 PUFF INHALATION ×4 (00:54→18:21)
[2023-11-08] MEDS: HYDROcodone/acetaminophen (*CRX) 5-325 MG TABLET 1 TAB PO ×5 (02:11→21:13)
[2023-11-08] MEDS: SALMET XINAFT/FLUTIC PROPIN 500 MCG/50 MCG INH CAP 1 PUFF INHALATION ×2 (06:16→18:22)
[2023-11-08 07:58] LABS: Glucose Point of Care 91 mg/dl (65-105)
[2023-11-08 08:00] VITALS: BP 125/88; PULSE 62; RESP 15; TEMP 35.7; O2SAT 92
[2023-11-08] MEDS: ENOXAPARIN 40 MG/0.4 ML SYRINGE SUB-Q ×2 (10:19→21:13)
[2023-11-08 10:20] VITALS: PULSE 60
[2023-11-08] MEDS: SERTRALINE HCL 50 MG TABLET 100 MG PO ×2 (10:20→21:13)
[2023-11-08] MEDS: buPROPion HCL XL (24 HR) 150 MG TABCR 300 MG PO (10:20)
[2023-11-08] MEDS: CYCLOBENZAPRINE HCL 10 MG TABLET PO ×3 (10:20→16:57)
[2023-11-08] MEDS: HYDROXYCHLOROQUINE SULFATE 200 MG TABLET PO (10:20)
[2023-11-08] MEDS: PROPRANOLOL HCL 60 MG CAPSULE CR PO (10:20)
[2023-11-08] MEDS: allopurinoL 300 MG TABLET PO (10:20)
[2023-11-08] MEDS: TOLNAFTATE 1% POWDER 45 GM BTL 1 APPLIC TOPICAL ×2 (10:23→21:14)
[2023-11-08 12:10] LABS: Glucose Point of Care 95 mg/dl (65-105)
[2023-11-08 16:00] VITALS: BP 128/71; PULSE 61; RESP 17; TEMP 35.8; O2SAT 91
[2023-11-08 17:02] LABS: Glucose Point of Care 116 mg/dl (65-105)
[2023-11-08] MEDS: traZODone HCL 50 MG TABLET 100 MG PO (21:13)
[2023-11-08 21:22] LABS: Glucose Point of Care 89 mg/dl (65-105)
[2023-11-09] VITALS: BP 130/62; PULSE 64; RESP 20; TEMP 36.2; O2SAT 90
[2023-11-09] MEDS: HYDROcodone/acetaminophen (*CRX) 5-325 MG TABLET 1 TAB PO ×4 (03:30→12:37)
[2023-11-09] MEDS: ALBUTEROL SULFATE (*SP) INHALER 2 PUFF INHALATION ×4 (06:46→23:25)
[2023-11-09] MEDS: SALMET XINAFT/FLUTIC PROPIN 500 MCG/50 MCG INH CAP 1 PUFF INHALATION ×2 (06:46→18:16)
[2023-11-09 08:00] VITALS: BP 127/54; PULSE 60; RESP 16; TEMP 36.1; O2SAT 91
[2023-11-09 08:22] LABS: Glucose Point of Care 94 mg/dl (65-105)
[2023-11-09] MEDS: SERTRALINE HCL 50 MG TABLET 100 MG PO ×2 (08:59→20:43)
[2023-11-09] MEDS: buPROPion HCL XL (24 HR) 150 MG TABCR 300 MG PO (08:59)
[2023-11-09] MEDS: HYDROXYCHLOROQUINE SULFATE 200 MG TABLET PO ×2 (08:59→20:43)
[2023-11-09] MEDS: CYCLOBENZAPRINE HCL 10 MG TABLET PO ×3 (08:59→16:54)
[2023-11-09] MEDS: allopurinoL 300 MG TABLET PO (08:59)
[2023-11-09] MEDS: TOLNAFTATE 1% POWDER 45 GM BTL 1 APPLIC TOPICAL ×2 (09:01→20:42)
[2023-11-09] MEDS: ENOXAPARIN 40 MG/0.4 ML SYRINGE SUB-Q ×2 (09:01→20:41)
[2023-11-09 09:03] VITALS: PULSE 60
[2023-11-09] MEDS: PROPRANOLOL HCL 60 MG CAPSULE CR PO (09:03)
[2023-11-09 11:43] LABS: Glucose Point of Care 106 mg/dl (65-105)
[2023-11-09 16:00] VITALS: BP 109/47; PULSE 60; RESP 22; TEMP 35.9; O2SAT 94
[2023-11-09] MEDS: HYDROcodone/acetaminophen (*CRX) 10-325 MG TABLET 1 TAB PO ×2 (16:01→20:43)
[2023-11-09 17:05] LABS: Glucose Point of Care 91 mg/dl (65-105)
[2023-11-09 20:00] VITALS: PULSE 60; RESP 18; O2SAT 94
[2023-11-09 20:46] LABS: Glucose Point of Care 105 mg/dl (65-105)
[2023-11-09] MEDS: traZODone HCL 50 MG TABLET 100 MG PO (23:41)
[2023-11-10] VITALS: BP 117/49; PULSE 59; RESP 16; TEMP 35.9; O2SAT 95
[2023-11-10] MEDS: ALBUTEROL SULFATE (*SP) INHALER 2 PUFF INHALATION ×4 (06:20→23:59)
[2023-11-10] MEDS: SALMET XINAFT/FLUTIC PROPIN 500 MCG/50 MCG INH CAP 1 PUFF INHALATION ×2 (06:20→18:10)
[2023-11-10] MEDS: HYDROcodone/acetaminophen (*CRX) 10-325 MG TABLET 1 TAB PO ×3 (06:33→20:36)
[2023-11-10 07:43] LABS: Glucose Point of Care 87 mg/dl (65-105)
[2023-11-10 08:00] VITALS: BP 130/68; PULSE 60; RESP 18; TEMP 35.9; O2SAT 97
[2023-11-10] MEDS: SERTRALINE HCL 50 MG TABLET 100 MG PO ×2 (09:00→20:36)
[2023-11-10 09:06] VITALS: PULSE 78
[2023-11-10] MEDS: allopurinoL 300 MG TABLET PO (09:06)
[2023-11-10] MEDS: PROPRANOLOL HCL 60 MG CAPSULE CR PO (09:06)
[2023-11-10] MEDS: HYDROXYCHLOROQUINE SULFATE 200 MG TABLET PO ×2 (09:07→20:36)
[2023-11-10] MEDS: buPROPion HCL XL (24 HR) 150 MG TABCR 300 MG PO (09:07)
[2023-11-10] MEDS: CYCLOBENZAPRINE HCL 10 MG TABLET PO ×3 (09:07→16:50)
[2023-11-10] MEDS: TOLNAFTATE 1% POWDER 45 GM BTL 1 APPLIC TOPICAL ×2 (09:08→20:43)
[2023-11-10] MEDS: ENOXAPARIN 40 MG/0.4 ML SYRINGE SUB-Q ×2 (09:11→20:36)
[2023-11-10 11:54] LABS: Glucose Point of Care 101 mg/dl (65-105)
[2023-11-10 16:00] VITALS: BP 124/74; PULSE 64; RESP 18; TEMP 36.6; O2SAT 94
[2023-11-10 20:00] VITALS: PULSE 64; RESP 18; O2SAT 94
[2023-11-10] MEDS: traZODone HCL 50 MG TABLET 100 MG PO (23:59)
[2023-11-11] VITALS: BP 108/58; PULSE 58; RESP 17; TEMP 36.1; O2SAT 94
[2023-11-11] MEDS: HYDROcodone/acetaminophen (*CRX) 10-325 MG TABLET 1 TAB PO ×4 (00:07→20:27)
[2023-11-11] MEDS: SALMET XINAFT/FLUTIC PROPIN 500 MCG/50 MCG INH CAP 1 PUFF INHALATION ×2 (05:13→18:01)
[2023-11-11] MEDS: ALBUTEROL SULFATE (*SP) INHALER 2 PUFF INHALATION ×3 (05:13→18:01)
[2023-11-11 05:24] LABS: Hematocrit 35.4 % (35.0-42.0); Hemoglobin 10.9 g/dL (11.7-13.8); Mean Corpuscular HGB Conc 30.8 g/dL (32.0-36.0); Mean Corpuscular Hemoglobin 26.8 pg (27.0-31.0); Platelet Count Result 205 K/mm3 (150-420); Red Blood Count 4.07 M/mm3 (4.20-5.40); Red Cell Distribution Width 15.9 % (11.6-14.4); White Blood Count 6.1 K/mm3 (4.8-10.8)
[2023-11-11 05:44] LABS: Alanine Aminotransferase 25 U/L (14-59); Albumin Level 2.4 g/dL (3.4-5.0); Alkaline Phosphatase 55 U/L (46-116); Anion Gap 5 mmol/L (8-16); Aspartate Amino Transferase 20 U/L (15-37); Bilirubin,Total 0.3 mg/dL (0.00-1.00); Blood Urea Nitrogen 25 mg/dL (7-18); Calcium 8.4 mg/dL (8.5-10.1); Carbon Dioxide 31 mmol/L (21-32); Chloride 103 mmol/L (98-108); Estimated CRCL calculation 68 ml/min; Estimated Glomerular Filt Rate 59; Glucose 88 mg/dL (70-99); Magnesium 2.1 mg/dL (1.8-2.4); Osmolality Calculated 291 mOsm/kg (285-295); Potassium 4.3 mmol/L (3.5-5.1); Sodium 139 mmol/L (136-145); Total Protein 6.9 g/dL (6.4-8.2)
[2023-11-11 08:00] VITALS: BP 128/72; PULSE 87; RESP 18; TEMP 36.1; O2SAT 95
[2023-11-11] MEDS: ENOXAPARIN 40 MG/0.4 ML SYRINGE SUB-Q ×2 (08:31→20:32)
[2023-11-11] MEDS: SERTRALINE HCL 50 MG TABLET 100 MG PO ×2 (08:31→20:32)
[2023-11-11] MEDS: buPROPion HCL XL (24 HR) 150 MG TABCR 300 MG PO (08:31)
[2023-11-11 08:32] VITALS: PULSE 78
[2023-11-11] MEDS: HYDROXYCHLOROQUINE SULFATE 200 MG TABLET PO ×2 (08:32→20:34)
[2023-11-11] MEDS: PROPRANOLOL HCL 60 MG CAPSULE CR PO (08:32)
[2023-11-11] MEDS: CYCLOBENZAPRINE HCL 10 MG TABLET PO ×3 (08:32→18:00)
[2023-11-11] MEDS: allopurinoL 300 MG TABLET PO (08:32)
[2023-11-11] MEDS: TOLNAFTATE 1% POWDER 45 GM BTL 1 APPLIC TOPICAL ×2 (09:57→20:35)
[2023-11-11 16:00] VITALS: BP 112/58; PULSE 58; RESP 16; TEMP 35.8; O2SAT 95
[2023-11-11 17:06] LABS: Glucose Point of Care 92 mg/dl (65-105)
[2023-11-11 20:00] VITALS: PULSE 75; RESP 18; O2SAT 95
[2023-11-11] MEDS: traZODone HCL 50 MG TABLET 100 MG PO (21:43)
[2023-11-12] VITALS: BP 110/61; PULSE 75; RESP 18; TEMP 36.5; O2SAT 95
[2023-11-12] MEDS: HYDROcodone/acetaminophen (*CRX) 10-325 MG TABLET 1 TAB PO ×5 (02:10→23:52)
[2023-11-12] MEDS: ALBUTEROL SULFATE (*SP) INHALER 2 PUFF INHALATION ×4 (06:06→23:52)
[2023-11-12] MEDS: SALMET XINAFT/FLUTIC PROPIN 500 MCG/50 MCG INH CAP 1 PUFF INHALATION ×2 (06:06→17:55)
[2023-11-12 07:45] VITALS: BP 111/48; PULSE 54; RESP 16; TEMP 35.8; O2SAT 93
[2023-11-12] MEDS: allopurinoL 300 MG TABLET PO (09:00)
[2023-11-12] MEDS: CYCLOBENZAPRINE HCL 10 MG TABLET PO ×3 (09:00→17:55)
[2023-11-12] MEDS: buPROPion HCL XL (24 HR) 150 MG TABCR 300 MG PO (09:00)
[2023-11-12 09:01] VITALS: PULSE 54
[2023-11-12] MEDS: PROPRANOLOL HCL 60 MG CAPSULE CR PO (09:01)
[2023-11-12] MEDS: SERTRALINE HCL 50 MG TABLET 100 MG PO ×2 (09:01→19:59)
[2023-11-12] MEDS: TOLNAFTATE 1% POWDER 45 GM BTL 1 APPLIC TOPICAL ×2 (09:01→20:02)
[2023-11-12] MEDS: HYDROXYCHLOROQUINE SULFATE 200 MG TABLET PO ×2 (09:01→20:00)
[2023-11-12] MEDS: ENOXAPARIN 40 MG/0.4 ML SYRINGE SUB-Q ×2 (09:38→20:00)
[2023-11-12 16:00] VITALS: BP 111/79; PULSE 56; RESP 16; TEMP 36.1; O2SAT 94
[2023-11-12] MEDS: traZODone HCL 50 MG TABLET 100 MG PO (19:59)
[2023-11-13] VITALS: BP 108/44; PULSE 56; RESP 18; TEMP 36.4; O2SAT 93
[2023-11-13] MEDS: ALBUTEROL SULFATE (*SP) INHALER 2 PUFF INHALATION (06:45)
[2023-11-13] MEDS: SALMET XINAFT/FLUTIC PROPIN 500 MCG/50 MCG INH CAP 1 PUFF INHALATION (06:46)
--- NOTE | 2023-11-13 07:56 | PM.DS ---
DS: Admitting Diagnosis Discharge Date 11/13/2023 Admitting Diagnosis Fall, Weakness DS: Discharge Diagnosis Discharge Diagnosis (1) Physical deconditioning: Code(s): R53.81 - Other malaise Status: Acute Assessment and Plan: Swing bed admission for PT/OT prior to anticipated discharge home. (2) Nasal bone fracture: Qualifiers: Encounter type: initial encounter Fracture type: closed Qualified Code(s): S02.2XXA - Fracture of nasal bones, initial encounter for closed fracture Code(s): S02.2XXA - Fracture of nasal bones, initial encounter for closed fracture Status: Acute Assessment and Plan: Facial bruising noted. No septal hematoma. Nasal precautions explained. (3) Type 2 diabetes mellitus: Qualifiers: Diabetes mellitus complication detail: with other skin complication Diabetes mellitus complication status: with skin complications Diabetes mellitus exterminator termite insulin use: with exterminator termite use Qualified Code(s): E11.628 - Type 2 diabetes mellitus with other skin complications; Z79.4 - FDC (current) use of insulin Code(s): E11.9 - Type 2 diabetes mellitus without complications Status: Acute Assessment and Plan: ACHS fingerstick glucose with high dose sliding scale. Sugar 158 AFTER breakfast this morning. Will hold on 15 units with each meal but will likely have to add back in. (4) Transaminitis: Code(s): R74.01 - Elevation of levels of liver transaminase levels Status: Acute (5) Rhabdomyolysis: Qualifiers: Rhabdomyolysis type: non-traumatic Qualified Code(s): M62.82 - Rhabdomyolysis Code(s): M62.82 - Rhabdomyolysis Status: Acute Assessment and Plan: Corrected after IV fluids at [place] (6) Obstructive sleep apnea: Code(s): G47.33 - Obstructive sleep apnea (adult) (pediatric) Status: Acute Assessment and Plan: CPAP offered (7) Fall: Qualifiers: Encounter type: initial encounter Qualified Code(s): W19.XXXA - Unspecified fall, initial encounter Code(s): W19.XXXA - Unspecified fall, initial encounter Status: Acute Assessment and Plan: Fall at home resulting in fractured nasal bone and prolonged downtime leading to rhabdomyolysis (8) Morbid obesity with body mass index (BMI) greater than or equal to 50: Code(s): E66.01 - Morbid (severe) obesity due to excess calories Status: Acute Assessment and Plan: Carb controlled diet, PT/OT DS: Summary Hospital Course Reason for hospitalization: Swing Bed Hospital Course: This is a 68 year old female that was admitted into the hospital Swing bed P atient is now being admitted to [facility] for Swing bed for PT/OT and strengthening. Patient has continued to improve and she is only a Stand by assist here and has not had any loss of balance while here. She continued to be noncompliant with the CPAP and I encouraged her to use that.?Patient will discharge home alone and have home health come in and see her. Patient continues to improve and is safe for discharge. Time Spent with Patient Time attestation: Total time spent providing and/or coordinating discharge services: Exam Narrative: Const:?? General: Mildly an xious and complain ing of pain all ov er Morbidly obes e.? A and O x3 ? Eyes/Face:?? Pupils: Equal, rou nd and reactive pu pils present. Per iorbital bruising bilateral and lac with steristrips a omari right eye. N o septal hematoma. Neck:?? Chest: Neck: supple Bruis ing across anterio r breasts bilatera l, worse on left. Yeast rash under
[2023-11-13 08:00] VITALS: BP 128/52; PULSE 80; RESP 16; TEMP 36.6; O2SAT 96
[2023-11-13] MEDS: ENOXAPARIN 40 MG/0.4 ML SYRINGE SUB-Q (08:35)
[2023-11-13] MEDS: SERTRALINE HCL 50 MG TABLET 100 MG PO (08:36)
[2023-11-13] MEDS: buPROPion HCL XL (24 HR) 150 MG TABCR 300 MG PO (08:36)
[2023-11-13 08:37] VITALS: PULSE 80
[2023-11-13] MEDS: HYDROXYCHLOROQUINE SULFATE 200 MG TABLET PO (08:37)
[2023-11-13] MEDS: PROPRANOLOL HCL 60 MG CAPSULE CR PO (08:37)
[2023-11-13] MEDS: allopurinoL 300 MG TABLET PO (08:37)
[2023-11-13] MEDS: HYDROcodone/acetaminophen (*CRX) 10-325 MG TABLET 1 TAB PO (08:37)
[2023-11-13] MEDS: CYCLOBENZAPRINE HCL 10 MG TABLET PO (08:37)
[2023-11-13] MEDS: TOLNAFTATE 1% POWDER 45 GM BTL 1 APPLIC TOPICAL (08:40)
--- NOTE | 2023-11-13 13:19 | PC.NURSE ---
1145 daughter here. instructions reinforced with daughter. they both vocalize an understadnig. dc per wc to family auto.
--- NOTE | 2023-11-16 10:17 | PC.NURSE ---
Discharge call back attempted no answer
--- NOTE | 2023-11-18 10:26 | PC.NURSE ---
Discharge call back completed, doing well at home, no questions or concerns about visit, did receive and understand dc instructions
== END 2023-11-13 11:45 | disposition home health service (06) | DRG 948 ==
PROVIDERS: Nurse Practitioner; Admitting Provider Internal Medicine; PCP Internal Medicine; Visit Provider Internal Medicine
DX: R53.81 Other malaise (principal); Z68.43 Body mass index [BMI] 50.0-59.9, adult; E66.01 Morbid (severe) obesity due to excess calories; I10 Essential (primary) hypertension; I87.8 Other specified disorders of veins; E11.9 Type 2 diabetes mellitus without complications; R91.8 Other nonspecific abnormal finding of lung field; M79.7 Fibromyalgia; M35.3 Polymyalgia rheumatica; M10.9 Gout, unspecified; M19.90 Unspecified osteoarthritis, unspecified site; G47.33 Obstructive sleep apnea (adult) (pediatric); F51.9 Sleep disorder not due to a substance or known physiological condition, unspecified; F41.9 Anxiety disorder, unspecified; F32.A Depression, unspecified; W19.XXXD Unspecified fall, subsequent encounter; S02.2XXD Fracture of nasal bones, subsequent encounter for fracture with routine healing; Z79.4 Long term (current) use of insulin; Z91.199 Patient's noncompliance with other medical treatment and regimen due to unspecified reason; Z87.891 Personal history of nicotine dependence
CPT/HCPCS: 36415; 80053; 82948; 83735; 85027; 97110; 97161; 97165; 97530; 97535; A9270; J1650; J1815

== ENCOUNTER 2024-02-04 21:06 | Inpatient (IN) | payer MEDICARE, SELFPAY ==
--- NOTE | ~2024-02-04 | XR_ITS ---
EXAMINATION: XR chest 1V portable DATE: 02/04/2024 22:20 INDICATION: Sepsis. Possible syncopal episode. TECHNIQUE: frontal view of the chest was obtained. COMPARISON: Chest radiograph dated 11/04/2023 FINDINGS: Mild increased interstitial pattern in the bilateral lower lung zones which could represent mild pulm onary edema and less likely atelectasis or pneumonia. Calcified nodule right upper lung zone consiste nt with old granulomatous disease. No pleural effusion or pneumothorax. The cardiomediastinal silhoue tte is within normal limits for AP technique. Visualized bones and soft tissues are unremarkable. IMPRESSION: 1. Mild increased interstitial pattern in the bilateral lower lung zones which could represent mild p ulmonary edema or less likely atelectasis or pneumonia. Reviewed, dictated and finalized at location A. IMPRESSION: 1. Mild increased interstitial pattern in the bilateral lower lung zones which could represent mild pulmonary edema or less likely atelectasis or pneumonia.
--- NOTE | ~2024-02-04 | US_ITS ---
EXAMINATION: US venous doppler [facility] DATE: 02/07/2024 14:41 INDICATION: Lower limb edema. TECHNIQUE: Grayscale ultrasound images without and with compression and Doppler ultrasound images of the bilateral lower extremity veins were obtained. COMPARISON: Ultrasound 01/13/2023 FINDINGS: The visualized portions of right common femoral vein, profunda (deep) femoral vein, femoral vein, pop liteal vein, peroneal veins, posterior tibial veins, and greater saphenous vein outflow are patent. The visualized portions of left common femoral vein, profunda femoral vein, femoral vein, popliteal v ein, peroneal veins, posterior tibial veins, and greater saphenous vein outflow are patent. IMPRESSION: 1. No deep venous thrombosis. Reviewed, dictated and finalized at location E.
[2024-02-04 21:05] VITALS: BP 138/87; PULSE 83; RESP 24; TEMP 37.6; O2SAT 92
--- NOTE | 2024-02-04 21:16 | ECG_ITS ---
SEE SCANNED COPY FOR CONFIRMED REPORT MTDD
[2024-02-04 21:17] VITALS: PULSE 85; O2SAT 94
[2024-02-04 21:21] VITALS: O2SAT 94
[2024-02-04 21:30] LABS: Hematocrit 40.1 % (37.0-47.0); Mean Corpuscular HGB Conc 32.4 g/dl (32-36); Mean Corpuscular Volume 89.5 fl (80-100); Mean Platelet Volume 9.4 fl (7.4-10.4); Platelet Count Result 255 k/mm3 (150-375); Red Blood Count 4.48 M/mm3 (4.2-5.4); Red Cell Distribution Width 14.2 % (11.5-14.5); White Blood Count 20.8 K/mm3 (4.5-10.0)
[2024-02-04 21:41] LABS: Band Neutrophils Percent 6 % (0-6); Lymphocytes Percent Manual 1 % (18-44); Monocytes Percent Manual 1 % (3-9); Neutrophils Absolute Manual 20.38 K/mm3 (1.7-7.2); Neutrophils Percent Manual 92 % (46-73); Total Cells Counted 100
[2024-02-04 21:42] LABS: Large Platelets Present; Platelet Estimate Adequate (Adequate); Schistocytes None Seen
[2024-02-04 22:07] LABS: Alanine Aminotransferase 19 U/L (6-35); Albumin Level 4.1 g/dL (3.5-5.1); Alkaline Phosphatase 85 U/L (38-126); Anion Gap 5 mmol/L (4-12); Aspartate Amino Transferase 26 U/L (14-36); Bilirubin,Total 1.3 mg/dL (0.2-1.3); Blood Urea Nitrogen 19 mg/dL (7-17); Calcium 9.5 mg/dL (8.4-10.2); Carbon Dioxide 30 mmol/L (22-30); Chloride 100 mmol/L (98-107); Estimated CRCL calculation 93 ml/min; Estimated Glomerular Filt Rate > 60; Glucose 165 mg/dL (65-110); Potassium 4.4 mmol/L (3.4-5.0); Sodium 135 mmol/L (137-145)
[2024-02-04] MEDS: SODIUM CHLORIDE 0.9% IV 1,000 ML 999 ML IV CONT (22:10)
[2024-02-04 22:14] VITALS: BP 123/54; PULSE 85; RESP 21; O2SAT 92; O2SAT 93
--- NOTE | 2024-02-04 22:19 | ED.WEAKNESS ---
HPI - Weakness General Chief complaint: Weakness Stated complaint: WEAKNESS Time Seen by Provider: 02/04/24 22:03 Source: patient Mode of arrival: EMS Limitations: no limitations History of Present Illness HPI Narrative: 68-year-old female currently being treated for cellulitis presenting for concerns for generalized weakness, possibly a syncopal episode today. currently says she is feeling a bit better but not completely back to normal. Related Data Home Medications Medication Instructions Recorded Confirmed allopurinol 300 mg tablet 300 mg PO DAILY 08/03/19 11/06/23 bupropion HCl 300 mg 24 hr tablet, 300 mg PO QAM 08/03/19 11/06/23 extended release cyclobenzaprine 10 mg tablet 10 mg PO TID 08/03/19 11/06/23 sertraline 100 mg tablet 100 mg PO BID 08/03/19 11/06/23 trazodone 100 mg tablet 100 mg PO HS PRN Insomnia 08/03/19 11/06/23 albuterol sulfate 90 mcg/actuation 2 puff inhalation QID 11/01/23 11/06/23 aerosol inhaler fluticasone furoate 200 1 inh inhalation DAILY 11/01/23 11/06/23 mcg-vilanterol 25 mcg/dose inhalation powder (Breo Ellipta) hydroxychloroquine 200 mg tablet 200 mg PO DAILY 11/01/23 11/06/23 propranolol 80 mg capsule,24 80 mg PO DAILY 11/01/23 11/06/23 hr,extended release tramadol 50 mg tablet 50 mg PO PRN PRN Pain 11/01/23 11/06/23 Allergies Allergy/AdvReac Type Severity Reaction Status Date / Time estrogens, conjugated Allergy Unknown Hives Verified 02/04/24 21:16 latex Allergy Rash Verified 02/04/24 21:16 Review of Systems Review of Systems: All systems reviewed & are unremarkable except as noted in HPI and below PMFSH Past Medical History Medical History Arthritis Asthma Depression Eczema ESR raised Fibromyalgia (~2006) Gout Hypertension Morbid obesity with body mass index (BMI) greater than or equal to 50 Obstructive sleep apnea PMR (polymyalgia rheumatica) Psoriasis Umbilical hernia Surgical History Surgical History H/O section X2 History of appendectomy History of cholecystectomy History of total abdominal hysterectomy Family History Family History Other Cancer Cerebrovascular accident Social History Social History Social History: She lives alone in her own home. She has a daughter that lives in our way and a son that lives 2 hours away. She smoked less than a pack of cigarettes per day from the time she was a teenager until approximately 1999. She denies any excessive alcohol use or illicit substance use. She ambulates with a walker. Code status: Full code Surrogate decision maker: Vicki Padilla (daughter) Smoking packs per day: 2 Smoking cigarettes per day: 40.0 Years smoked: 20 Smoking pack-years: 40.00 Smoking status: Former smoker Tobacco type: cigarettes Alcohol intake: never Drinks per week: 1 Substance use: never Do You Feel Safe in your Home?: Yes Lack of Transportation: YES Lack of Food: Never True Current Housing: I Have Housing Concerned About Future Housing: No Difficulty Paying Gas/Electric Bills: No Difficulty Paying for Meds: No Currently Unemployed: No Education: Grade School Difficulty w/ Childcare or Family Care: No Spiritual care concerns: No Exam Narrative: Constitutional: Generally well appearing, no acute distress Head: Atraumatic, no deformities. Eyes: Pupils equal, round, and reactive to light. Neck: Supple, no tracheal deviation, no JVD. ENMT: Mucous membranes moist Cardiovascular: S1, S2 auscultated. No murmurs, rubs, or gallops. No S3/S4. Normal Distal pulses. No peripheral edema. Respiratory: Lung sounds equal. No wheezes, rales, or rhonchi. Gastrointestinal: Abdomen was soft and non-tender. Non-distended. No rebound or guar
[2024-02-04 22:44] LABS: CRP 14.2 mg/dL (<1.0)
[2024-02-04 22:49] LABS: INR 1.2; Prothrombin Time 15.6 Seconds (11.1-14.7)
[2024-02-04 22:50] LABS: Partial Thromboplastin Time 34.5 Seconds (22.3-36.8)
[2024-02-04 22:59] LABS: Appearance Urine Cloudy (Clear); Bacteria Urine 4+ /hpf; Bilirubin Urine Negative (Negative); Blood Urine Trace (Negative); Color Urine Yellow (Yellow); Glucose Urine UA Negative (Negative); Ketones Urine Negative (Negative); Leukocyte Esterase Ur Trace LEU/UL (Negative); Nitrate Urine Positive (Negative); Non Pathogenic Casts 0-2; Protein Urine 1+ mg/dL (Negative); Specific Grav Ur 1.022 (1.001-1.035); Squamous Epithelial Cell Urine Occasional /hpf (Few); pH Urine 6.5 (5.0-9.0)
[2024-02-04] MEDS: MORPHINE SULFATE (*CRX) 4 MG/ML INJ IV PUSH (22:59)
[2024-02-04 23:06] LABS: Add Urine Microscopic? YES
[2024-02-04 23:16] LABS: Influenza A QL RT-PCR Negative (Negative); Influenza B QL RT-PCR Negative (Negative); RSV RNA, RT-PCR Negative (Negative); SARS-CoV-2 RNA PCR Negative (Negative)
[2024-02-04] MEDS: VANCOMYCIN 1,250 MG/NS 250 ML 1,250 MG/250 ML BAG 166.67 MG IVPB (23:32)
[2024-02-04 23:38] VITALS: BP 120/55; PULSE 82; RESP 25; O2SAT 94
[2024-02-04 23:47] VITALS: BP 120/55; PULSE 80; RESP 32; O2SAT 92
[2024-02-05] VITALS (11 sets, daily range): BP systolic 100–122; BP diastolic 43–60; PULSE 64–79; RESP 16–32; TEMP 36.5–36.6; O2SAT 92–95; BMI 53.8
--- NOTE | 2024-02-05 00:12 | PC.NURSE ---
per edp dr. lockett, this rn to administered 9.5mg of dilaudid for patient pain. pt states that her pain is a 8/10 and she is not getting any relief . this rn used closed loop communication to confirm 0.5 mg of dilaudid IV push. edp dr. lockett confirmed medication.
[2024-02-05] MEDS: HYDROmorphone HCL INJ (*CRX) 1 MG/ML SYR 0.5 MG IV PUSH ×4 (00:18→20:23)
[2024-02-05] MEDS: SODIUM CHLORIDE 0.9% IV 1,000 ML 125 ML IV CONT ×3 (01:08→20:22)
[2024-02-05] MEDS: VANCOMYCIN 1,250 MG/NS 250 ML 1,250 MG/250 ML BAG 166.67 MG IVPB (01:08)
--- NOTE | 2024-02-05 02:10 | ADMGEN ---
This patient, Yanni Kraus, was admitted to 2 Medical Room 255-01. Patient/family oriented to hospital policies and general routines including ID bracelet, bed and alarms, visiting hours, pain management, procedures, bathroom and other care routines, personal items, smoking policy, room service/diet, and visiting hours. Information on how to activate the Rapid Response Team has been discussed. Patient/Family are encouraged to report perceived risks to care and to ask questions if they do not understand what they are told or what they should do.
[2024-02-05 05:09] LABS: Estimated CRCL calculation 82 ml/min; Estimated Glomerular Filt Rate > 60
--- NOTE | 2024-02-05 08:15 | PM.IMHP ---
H&P: HPI History of Present Illness Date/Time: 02/05/24 08:15 Chief Complaint: weakness Narrative: 68-year-old female with PMH of COPD-oxyygen dependent, fibromialgia, obesity, STEVE currently being treated for cellulitis presenting for concerns for generalized weakness, possibly a syncopal episode today. ? currently says she is feeling a bit better but not completely back to normal. IN ER: Does not actually sound like a syncopal episode, sounds like she was just getting lightheaded at times.? On exam she is generally well-appearing, morbidly obese, vitals regular.? Does have obvious cellulitis of her left lower extremity.? Suspect possible early sepsis, failed outpatient cellulitis therapy.? Obtaining infectious workup.? Started on vancomycin. Consistent with infection-Leukocytosis present CRP elevated.? Patient given pain medication her lumbar seems chronic.? His also added on ceftriaxone.? Admitted to [facility] for cellulitis with UTI and early sepsis.?. Review of Systems Constitutional: Constitutional: Reports as per HPI Musculoskeletal: Musculoskeletal: Reports back pain, Reports myalgias and Reports arthralgias Integumentary/Breasts: Comments: redness lt lower extr- was on antibiotics from her pcp [facility] Past Medical History Medical History Arthritis Asthma Depression Eczema ESR raised Fibromyalgia (~2006) Gout Hypertension Morbid obesity with body mass index (BMI) greater than or equal to 50 Obstructive sleep apnea PMR (polymyalgia rheumatica) Psoriasis Umbilical hernia Surgical History Surgical History H/O section X2 History of appendectomy History of cholecystectomy History of total abdominal hysterectomy Family History Family History (Updated 02/05/24 @ 02:21 by Laura Villalobos RN) Mother Cancer Sibling Cerebrovascular accident Father Heart attack Social History Social History Social History: She lives alone in her own home. She has a daughter that lives in our way and a son that lives 2 hours away. She smoked less than a pack of cigarettes per day from the time she was a teenager until approximately 1999. She denies any excessive alcohol use or illicit substance use. She ambulates with a walker. Code status: Full code Surrogate decision maker: Vicki Padilla (daughter) Smoking packs per day: 2 Smoking cigarettes per day: 40.0 Years smoked: 20 Smoking pack-years: 40.00 Smoking status: Former smoker Tobacco type: cigarettes Alcohol intake: never Drinks per week: 1 Substance use: never Substance use type: does not use Do You Feel Safe in your Home?: Yes Lack of Transportation: YES Lack of Food: Never True Current Housing: I Have Housing Concerned About Future Housing: No Difficulty Paying Gas/Electric Bills: YES Difficulty Paying for Meds: YES Currently Unemployed: No Education: Grade School Difficulty w/ Childcare or Family Care: No Spiritual care concerns: No Meds Home Medications and Allergies Home Medications Medication Instructions Recorded Confirmed Type bupropion HCl 300 mg 24 hr tablet, 300 mg PO QAM 08/03/19 02/05/24 History extended release cyclobenzaprine 10 mg tablet 10 mg PO TID PRN muscle spasms 08/03/19 02/05/24 History sertraline 100 mg tablet 100 mg PO BID 08/03/19 02/05/24 History trazodone 100 mg tablet 100 mg PO HS PRN Insomnia 08/03/19 02/05/24 History albuterol sulfate 90 mcg/actuation 2 puff inhalation QID 11/01/23 02/05/24 History aerosol inhaler hydroxychloroquine 200 mg tablet 200 mg PO DAILY 11/01/23 02/05/24 History propranolol 80 mg capsule,24 80 mg PO DAILY 11/01/23 02/05/24 History hr,extended release tramadol 50 mg tablet 50 mg PO PRN PRN Pain (Scale Score 11/01/23 02/05/24 History 7-10) sonia
[2024-02-05 08:52] LABS: Lactic Acid Reflex 0.7 mmol/L (0.7-2.0)
[2024-02-05] MEDS: ALBUTEROL SULFATE (*SP) AEROSOL 1 PUFF 2 PUFF INHALATION ×3 (09:00→21:13)
[2024-02-05] MEDS: SERTRALINE HCL 50 MG TABLET 100 MG PO ×2 (09:25→17:01)
[2024-02-05] MEDS: buPROPion HCL XL (24 HR) 150 MG TABCR 300 MG PO (09:28)
[2024-02-05] MEDS: ENOXAPARIN 40 MG/0.4 ML SYRINGE SUB-Q (09:28)
[2024-02-05] MEDS: HYDROXYCHLOROQUINE SULFATE 200 MG TABLET PO (09:28)
[2024-02-05] MEDS: TOLNAFTATE 1% POWDER 45 GM BTL 1 APPLIC TOPICAL ×2 (09:32→20:33)
[2024-02-05 09:33] LABS: Hemoglobin A1C 4.7 % (<5.7)
[2024-02-05] MEDS: VANCOMYCIN 1,500 MG/NS 500 ML 1,500 MG/500 ML BAG 250 MG IVPB ×2 (11:50→23:56)
[2024-02-05 12:14] LABS: Glucose Point of Care 132 mg/dl (65-105)
[2024-02-05] MEDS: HYDROcodone/acetaminophen (*CRX) 10-325 MG TABLET 1 TAB PO ×2 (17:02→23:54)
[2024-02-05 17:08] LABS: Glucose Point of Care 123 mg/dl (65-105)
[2024-02-05 20:00] LABS: Glucose Point of Care 183 mg/dl (65-105)
[2024-02-05] MEDS: INSULIN GLARGINE (*BKC) 100 UNITS/ML 10 UNITS SUB-Q (20:25)
[2024-02-05] MEDS: traZODone HCL 50 MG TABLET 100 MG PO (23:55)
[2024-02-06] VITALS (15 sets, daily range): BP systolic 128–138; BP diastolic 46–59; PULSE 64–75; RESP 16–20; TEMP 36.6–36.9; O2SAT 92–98
[2024-02-06 05:45] LABS: Hematocrit 38.8 % (37.0-47.0); Hemoglobin 11.7 g/dL (12.0-15.0); Mean Corpuscular HGB Conc 30.2 g/dl (32-36); Mean Corpuscular Hemoglobin 28.5 pg (26-34); Mean Corpuscular Volume 94.4 fl (80-100); Mean Platelet Volume 8.7 fl (7.4-10.4); Platelet Count Result 184 k/mm3 (150-375); Red Blood Count 4.11 M/mm3 (4.2-5.4); Red Cell Distribution Width 14.4 % (11.5-14.5); White Blood Count 11.7 K/mm3 (4.5-10.0)
[2024-02-06 06:00] LABS: Alanine Aminotransferase 17 U/L (6-35); Albumin Level 3.4 g/dL (3.5-5.1); Alkaline Phosphatase 75 U/L (38-126); Anion Gap 5 mmol/L (4-12); Aspartate Amino Transferase 28 U/L (14-36); Bilirubin,Total 0.6 mg/dL (0.2-1.3); Blood Urea Nitrogen 15 mg/dL (7-17); Calcium 8.1 mg/dL (8.4-10.2); Carbon Dioxide 24 mmol/L (22-30); Chloride 107 mmol/L (98-107); Estimated CRCL calculation 93 ml/min; Estimated Glomerular Filt Rate > 60; Glucose 100 mg/dL (65-110); Potassium 3.6 mmol/L (3.4-5.0); Sodium 136 mmol/L (137-145)
[2024-02-06 06:03] LABS: Lactic Acid Reflex 0.8 mmol/L (0.7-2.0)
[2024-02-06] MEDS: ALBUTEROL SULFATE (*SP) AEROSOL 1 PUFF 2 PUFF INHALATION (08:02)
[2024-02-06 08:10] LABS: Glucose Point of Care 99 mg/dl (65-105)
--- NOTE | 2024-02-06 08:50 | PM.IMPN ---
Progress Note: A&P Assessment and Plan (1) Sepsis: Qualifiers: Sepsis acute organ dysfunction status: without acute organ dysfunction Code(s): A41.9 - Sepsis, unspecified organism Status: Acute Assessment and Plan: - lactic acid ordered- 0.8 - blood cultures- prelim-negative, UA cultures collected- growing gram negative bacilli-pt on ceftriaxone already -continue ceftriaxone and vanc (pharmacy to f/u labs/doses for vanc) -received 2l IV fluid- drinking well now- will stop fluids (2) Type 2 diabetes mellitus: Qualifiers: Diabetes mellitus complication detail: with other skin complication Diabetes mellitus complication status: with skin complications Diabetes mellitus [facility] insulin use: with intermodal dispatcher use Qualified Code(s): E11.628 - Type 2 diabetes mellitus with other skin complications; Z79.4 - technician terminal and repeater (current) use of insulin Code(s): E11.9 - Type 2 diabetes mellitus without complications Status: Acute Assessment and Plan: # t2dm - will order accucheck ac/hs - SS and lantus at hs - hgA1C ordered - diabetic diet (3) Obstructive sleep apnea: Code(s): G47.33 - Obstructive sleep apnea (adult) (pediatric) Status: Acute Assessment and Plan: supposed to be on cpap at home but doensot wear it - will continue cpap here- discussed with nurse (4) Morbid obesity with body mass index (BMI) greater than or equal to 50: Code(s): E66.01 - Morbid (severe) obesity due to excess calories Status: Acute (5) Cellulitis: Qualifiers: Laterality: left Site of cellulitis: extremity Site of cellulitis of extremity: lower extremity Qualified Code(s): L03.116 - Cellulitis of left lower limb Code(s): L03.90 - Cellulitis, unspecified Status: Acute Assessment and Plan: # cellulitis LLE - failed outpt treatment - was started on ceftriaxone and vanc - monitor (6) Physical deconditioning: Code(s): R53.81 - Other malaise Status: Acute Assessment and Plan: - chronic pain-back, knees - gets tearful when discussing the need to work with PT/OT - has pain meds scheduled if needed Plan GI prophylaxis: not indicated DVT prophylaxis: lovenox Lines: Peripheral IV Code status: full code Time Spent With Patient Time with patient: 15 - 25 minutes Subjective Date/time seen: 02/06/24 08:50 Interval history: 8-year-old female with PMH of COPD-oxyygen dependent, fibromialgia, obesity, STEVE currently being treated outpt for cellulitis presenting for concerns for generalized weakness, possibly a syncopal episode today. ? currently says she is feeling a bit better but not completely 100% self. - cellulitis of her left lower extremity.? Suspect possible early sepsis, failed outpatient cellulitis therapy.?? Started on vancomycin. ?Consistent with infection-Leukocytosis present CRP elevated.? BMI 53, she has chronic back and knee pain? His also added on ceftriaxone.? Admitted to [facility] for cellulitis with UTI and early sepsis.? 02/05- WBC improved from 20.8 (02/03) to 11.7 today (02/05). lactic negative. Urine culture- gram negative bacilli- on ceftriaxone already. BS stable. Will order PT for eval. Eating and drinking well- will stop IV fluids. Faint wheezing noted- pt is refusing chest xray or any other tests at this points- states that her insurance doensot cover anything and she owes a lot of money for hospital bills. will f/u on this with child care supervisor. Pt gets very emotional and tearfull. Review of Systems Constitutional: Constitutional: Reports as per HPI Musculoskeletal: Musculoskeletal: Reports back pain, Reports myalgias and Reports arthralgias Exam Const: General: uncomfortable Other: anxious and tearfull. reports inability to pay bills at home Resp: Effort & Inspection: normal respiratory effort Auscultation: no crackles and no rales Cardio: Rate: regular rate Rhythm: regular r
[2024-02-06] MEDS: ENOXAPARIN 40 MG/0.4 ML SYRINGE SUB-Q (10:28)
[2024-02-06] MEDS: HYDROXYCHLOROQUINE SULFATE 200 MG TABLET PO (10:28)
[2024-02-06] MEDS: buPROPion HCL XL (24 HR) 150 MG TABCR 300 MG PO (10:28)
[2024-02-06] MEDS: SERTRALINE HCL 50 MG TABLET 100 MG PO ×2 (10:28→17:00)
[2024-02-06] MEDS: TOLNAFTATE 1% POWDER 45 GM BTL 1 APPLIC TOPICAL ×2 (10:29→21:46)
[2024-02-06] MEDS: HYDROcodone/acetaminophen (*CRX) 10-325 MG TABLET 1 TAB PO ×2 (10:32→17:00)
[2024-02-06 10:59] LABS: Vancomycin Trough 18.4 ug/mL (10.0-20.0)
[2024-02-06] MEDS: VANCOMYCIN 1,500 MG/NS 500 ML 1,500 MG/500 ML BAG 250 MG IVPB ×2 (11:46→23:19)
[2024-02-06 11:58] LABS: Glucose Point of Care 135 mg/dl (65-105)
[2024-02-06] MEDS: IPRATROPIUM 0.5 MG/ALBUTEROL SULFATE 2.5 MG AMPUL.NEB 3 ML INHALATION ×2 (13:25→21:02)
[2024-02-06 16:59] LABS: Glucose Point of Care 99 mg/dl (65-105)
[2024-02-06 20:23] LABS: Glucose Point of Care 127 mg/dl (65-105)
[2024-02-06] MEDS: INSULIN GLARGINE (*BKC) 100 UNITS/ML 10 UNITS SUB-Q (21:45)
[2024-02-06] MEDS: HYDROmorphone HCL INJ (*CRX) 1 MG/ML SYR 0.5 MG IV PUSH (21:57)
[2024-02-06] MEDS: traZODone HCL 50 MG TABLET 100 MG PO (21:58)
[2024-02-07] VITALS (19 sets, daily range): BP systolic 117–149; BP diastolic 51–62; PULSE 63–78; RESP 16–22; TEMP 36.5–36.7; O2SAT 93–96
[2024-02-07] MEDS: IPRATROPIUM 0.5 MG/ALBUTEROL SULFATE 2.5 MG AMPUL.NEB 3 ML INHALATION ×4 (03:08→21:01)
[2024-02-07] MEDS: HYDROcodone/acetaminophen (*CRX) 10-325 MG TABLET 1 TAB PO ×3 (03:36→17:40)
[2024-02-07 05:05] LABS: Hematocrit 35.4 % (37.0-47.0); Hemoglobin 10.9 g/dL (12.0-15.0); Mean Corpuscular HGB Conc 30.8 g/dl (32-36); Mean Corpuscular Hemoglobin 28.4 pg (26-34); Mean Corpuscular Volume 92.2 fl (80-100); Mean Platelet Volume 8.6 fl (7.4-10.4); Platelet Count Result 184 k/mm3 (150-375); Red Blood Count 3.84 M/mm3 (4.2-5.4); Red Cell Distribution Width 14.2 % (11.5-14.5); White Blood Count 8.9 K/mm3 (4.5-10.0)
[2024-02-07 05:11] LABS: Lactic Acid Reflex 0.6 mmol/L (0.7-2.0)
[2024-02-07 05:12] LABS: Alanine Aminotransferase 19 U/L (6-35); Albumin Level 3.4 g/dL (3.5-5.1); Alkaline Phosphatase 73 U/L (38-126); Anion Gap 5 mmol/L (4-12); Aspartate Amino Transferase 31 U/L (14-36); Bilirubin,Total 0.5 mg/dL (0.2-1.3); Blood Urea Nitrogen 13 mg/dL (7-17); Calcium 8.6 mg/dL (8.4-10.2); Carbon Dioxide 26 mmol/L (22-30); Chloride 108 mmol/L (98-107); Estimated CRCL calculation 107 ml/min; Estimated Glomerular Filt Rate > 60; Glucose 96 mg/dL (65-110); Potassium 3.8 mmol/L (3.4-5.0); Sodium 139 mmol/L (137-145)
[2024-02-07 08:00] LABS: Glucose Point of Care 71 mg/dl (65-105)
--- NOTE | 2024-02-07 08:19 | PM.IMPN ---
Progress Note: A&P Assessment and Plan (1) Sepsis: Qualifiers: Sepsis acute organ dysfunction status: without acute organ dysfunction Code(s): A41.9 - Sepsis, unspecified organism Status: Acute Assessment and Plan: - lactic acid ordered- 0.8 - blood cultures- prelim-negative, UA cultures collected- C/S completed-pt on ceftriaxone already- appropriate -continue ceftriaxone and vanc (pharmacy to f/u labs/doses for vanc) -received 2l IV fluid upon admission- IV fluids were stopped 02/05 (2) Type 2 diabetes mellitus: Qualifiers: Diabetes mellitus complication detail: with other skin complication Diabetes mellitus complication status: with skin complications Diabetes mellitus long-term insulin use: with long-term use Qualified Code(s): E11.628 - Type 2 diabetes mellitus with other skin complications; Z79.4 - adjunct faculty for medical terminology (current) use of insulin Code(s): E11.9 - Type 2 diabetes mellitus without complications Status: Acute Assessment and Plan: # t2dm - will order accucheck ac/hs - SS and lantus at hs - hgA1C ordered - diabetic diet (3) Obstructive sleep apnea: Code(s): G47.33 - Obstructive sleep apnea (adult) (pediatric) Status: Acute Assessment and Plan: supposed to be on cpap at home but doensot wear it - will continue cpap here- discussed with nurse (4) Morbid obesity with body mass index (BMI) greater than or equal to 50: Code(s): E66.01 - Morbid (severe) obesity due to excess calories Status: Acute (5) Cellulitis: Qualifiers: Laterality: left Site of cellulitis: extremity Site of cellulitis of extremity: lower extremity Qualified Code(s): L03.116 - Cellulitis of left lower limb Code(s): L03.90 - Cellulitis, unspecified Status: Acute Assessment and Plan: # cellulitis LLE - failed outpt treatment - was started on ceftriaxone and vanc - monitor- improving (6) Physical deconditioning: Code(s): R53.81 - Other malaise Status: Acute Assessment and Plan: - chronic pain-back, knees - gets tearful when discussing the need to work with PT/OT - has pain meds scheduled if needed Plan GI prophylaxis: not indicated DVT prophylaxis: lovenox Lines: Peripheral IV Code status: full code Time Spent With Patient Time with patient: 15 - 25 minutes Subjective Date/time seen: 02/07/24 08:19 Interval history: 8-year-old female with PMH of COPD-oxyygen dependent, fibromialgia, obesity, STEVE currently being treated outpt for cellulitis presenting for concerns for generalized weakness, possibly a syncopal episode today. ? currently says she is feeling a bit better but not completely 100% self. - cellulitis of her left lower extremity.? Suspect possible early sepsis, failed outpatient cellulitis therapy.?? Started on vancomycin. ?Consistent with infection-Leukocytosis present CRP elevated.? BMI 53, she has chronic back and knee pain? His also added on ceftriaxone.? Admitted to [facility] for cellulitis with UTI and early sepsis.? 02/05- WBC improved from 20.8 (02/03) to 11.7 today (02/05). lactic negative. Urine culture- gram negative bacilli- on ceftriaxone already. BS stable. Will order PT for eval. Eating and drinking well- will stop IV fluids. Faint wheezing noted- pt is refusing chest xray or any other tests at this points- states that her insurance doensot cover anything and she owes a lot of money for hospital bills. will f/u on this with career services representative. Pt gets very emotional and tearfull. 02/06- feeling better today- breathing is not labored, no wheezes. encouraged to work with PT today Review of Systems Constitutional: Constitutional: Reports as per HPI Musculoskeletal: Musculoskeletal: Reports back pain, Reports myalgias and Reports arthralgias Exam Const: General: uncomfortable Other: anxious and tearfull. reports inability to pay bills at home Resp: Effort & Inspection
[2024-02-07] MEDS: buPROPion HCL XL (24 HR) 150 MG TABCR 300 MG PO (10:12)
[2024-02-07] MEDS: SERTRALINE HCL 50 MG TABLET 100 MG PO ×2 (10:12→17:40)
[2024-02-07] MEDS: HYDROXYCHLOROQUINE SULFATE 200 MG TABLET PO (10:12)
[2024-02-07] MEDS: VANCOMYCIN 1,500 MG/NS 500 ML 1,500 MG/500 ML BAG 250 MG IVPB (10:13)
[2024-02-07] MEDS: ENOXAPARIN 40 MG/0.4 ML SYRINGE SUB-Q (10:13)
[2024-02-07 12:01] LABS: Glucose Point of Care 104 mg/dl (65-105)
[2024-02-07] MEDS: HYDROmorphone HCL INJ (*CRX) 1 MG/ML SYR 0.5 MG IV PUSH ×2 (12:58→22:31)
[2024-02-07 17:21] LABS: Glucose Point of Care 91 mg/dl (65-105)
[2024-02-07] MEDS: TOLNAFTATE 1% POWDER 45 GM BTL 1 APPLIC TOPICAL ×2 (17:40→21:49)
[2024-02-07 21:27] LABS: Glucose Point of Care 126 mg/dl (65-105)
[2024-02-07] MEDS: INSULIN GLARGINE (*BKC) 100 UNITS/ML 10 UNITS SUB-Q (21:45)
[2024-02-07] MEDS: traZODone HCL 50 MG TABLET 100 MG PO (22:31)
[2024-02-07] MEDS: VANCOMYCIN 1,500 MG/NS 500 ML 1,500 MG/500 ML BAG 500 MG IVPB (22:37)
[2024-02-08] VITALS (11 sets, daily range): BP systolic 127–148; BP diastolic 52–68; PULSE 68–80; RESP 18–20; TEMP 36.3–36.6; O2SAT 92–96
[2024-02-08] MEDS: IPRATROPIUM 0.5 MG/ALBUTEROL SULFATE 2.5 MG AMPUL.NEB 3 ML INHALATION ×4 (02:12→20:31)
[2024-02-08 05:53] LABS: Hematocrit 35.8 % (37.0-47.0); Hemoglobin 11.2 g/dL (12.0-15.0); Mean Corpuscular HGB Conc 31.3 g/dl (32-36); Mean Corpuscular Hemoglobin 28.6 pg (26-34); Mean Corpuscular Volume 91.3 fl (80-100); Mean Platelet Volume 8.6 fl (7.4-10.4); Platelet Count Result 219 k/mm3 (150-375); Red Blood Count 3.92 M/mm3 (4.2-5.4); Red Cell Distribution Width 14.5 % (11.5-14.5); White Blood Count 7.8 K/mm3 (4.5-10.0)
[2024-02-08 06:09] LABS: Alanine Aminotransferase 21 U/L (6-35); Albumin Level 3.4 g/dL (3.5-5.1); Alkaline Phosphatase 71 U/L (38-126); Anion Gap 4 mmol/L (4-12); Aspartate Amino Transferase 30 U/L (14-36); Bilirubin,Total 0.5 mg/dL (0.2-1.3); Blood Urea Nitrogen 12 mg/dL (7-17); Carbon Dioxide 31 mmol/L (22-30); Chloride 106 mmol/L (98-107); Estimated CRCL calculation 93 ml/min; Estimated Glomerular Filt Rate > 60; Glucose 99 mg/dL (65-110); Potassium 4.2 mmol/L (3.4-5.0); Sodium 141 mmol/L (137-145)
[2024-02-08 06:10] LABS: Lactic Acid Reflex 0.7 mmol/L (0.7-2.0)
[2024-02-08 08:05] LABS: Glucose Point of Care 88 mg/dl (65-105)
--- NOTE | 2024-02-08 08:28 | PM.IMPN ---
Progress Note: A&P Assessment and Plan (1) Sepsis: Qualifiers: Sepsis acute organ dysfunction status: without acute organ dysfunction Code(s): A41.9 - Sepsis, unspecified organism Status: Acute Assessment and Plan: - lactic acid ordered- negative - blood cultures- prelim-negative, UA cultures collected- C/S completed-pt on ceftriaxone already- appropriate -will deescalate antibiotics -received 2l IV fluid upon admission- IV fluids were stopped 02/05 - no fevers- stable- monitor (2) Type 2 diabetes mellitus: Qualifiers: Diabetes mellitus complication detail: with other skin complication Diabetes mellitus complication status: with skin complications Diabetes mellitus predatory animal exterminator insulin use: with predatory animal exterminator use Qualified Code(s): E11.628 - Type 2 diabetes mellitus with other skin complications; Z79.4 - residential (current) use of insulin Code(s): E11.9 - Type 2 diabetes mellitus without complications Status: Acute Assessment and Plan: # t2dm - will order accucheck ac/hs - SS and lantus at hs - hgA1C ordered - diabetic diet (3) Obstructive sleep apnea: Code(s): G47.33 - Obstructive sleep apnea (adult) (pediatric) Status: Acute Assessment and Plan: -cpap (4) Morbid obesity with body mass index (BMI) greater than or equal to 50: Code(s): E66.01 - Morbid (severe) obesity due to excess calories Status: Acute (5) Cellulitis: Qualifiers: Laterality: left Site of cellulitis: extremity Site of cellulitis of extremity: lower extremity Qualified Code(s): L03.116 - Cellulitis of left lower limb Code(s): L03.90 - Cellulitis, unspecified Status: Acute Assessment and Plan: # cellulitis LLE - failed outpt treatment - was started on ceftriaxone and vanc - deescalating therapy today since improved -augmentin PO in anticipation for rehab discharge (6) Physical deconditioning: Code(s): R53.81 - Other malaise Status: Acute Assessment and Plan: PT/OT eval done - skilled PT services recommended upon discharge - working with Care coordination for placement Plan PT/OT worked with pt on 02/06 and recommended that pt would benefit from [facility] Time Spent With Patient Time with patient: less than 15 minutes Subjective Date/time seen: 05/13/24 08:28 Interval history: 8-year-old female with PMH of COPD-oxyygen dependent, fibromialgia, obesity, STEVE currently being treated outpt for cellulitis presenting for concerns for generalized weakness, possibly a syncopal episode today. ? currently says she is feeling a bit better but not completely 100% self. - cellulitis of her left lower extremity.? Suspect possible early sepsis, failed outpatient cellulitis therapy.?? Started on vancomycin. ?Consistent with infection-Leukocytosis present CRP elevated.? BMI 53, she has chronic back and knee pain? His also added on ceftriaxone.? Admitted to [facility] for cellulitis with UTI and early sepsis.? 02/05- WBC improved from 20.8 (02/03) to 11.7 today (02/05). lactic negative. Urine culture- gram negative bacilli- on ceftriaxone already. BS stable. Will order PT for eval. Eating and drinking well- will stop IV fluids. Faint wheezing noted- pt is refusing chest xray or any other tests at this points- states that her insurance doensot cover anything and she owes a lot of money for hospital bills. will f/u on this with wild animal caretaker. Pt gets very emotional and tearfull. 02/06- feeling better today- breathing is not labored, no wheezes. encouraged to work with PT today 02/07- seen and examined today. will deescalate antibiotic therapy. Working on placement. continue to work with PT/OT Review of Systems Constitutional: Constitutional: Reports as per HPI Musculoskeletal: Musculoskeletal: Reports back pain, Reports myalgias and Reports arthralgias Exam Const: General: comfortable; No no acute distress Other:
[2024-02-08] MEDS: buPROPion HCL XL (24 HR) 150 MG TABCR 300 MG PO (09:23)
[2024-02-08] MEDS: HYDROXYCHLOROQUINE SULFATE 200 MG TABLET PO (09:24)
[2024-02-08] MEDS: ENOXAPARIN 40 MG/0.4 ML SYRINGE SUB-Q (09:24)
[2024-02-08] MEDS: SERTRALINE HCL 50 MG TABLET 100 MG PO ×2 (09:24→16:40)
[2024-02-08] MEDS: HYDROmorphone HCL INJ (*CRX) 1 MG/ML SYR 0.5 MG IV PUSH ×2 (09:31→15:38)
[2024-02-08] MEDS: TOLNAFTATE 1% POWDER 45 GM BTL 1 APPLIC TOPICAL ×2 (09:36→20:26)
[2024-02-08 11:05] LABS: Vancomycin Trough 19.1 ug/mL (10.0-20.0)
[2024-02-08 12:13] LABS: Glucose Point of Care 93 mg/dl (65-105)
[2024-02-08] MEDS: VANCOMYCIN 1,500 MG/NS 500 ML 1,500 MG/500 ML BAG 250 MG IVPB (12:15)
[2024-02-08 16:55] LABS: Glucose Point of Care 88 mg/dl (65-105)
[2024-02-08] MEDS: traZODone HCL 50 MG TABLET 100 MG PO (20:24)
[2024-02-08] MEDS: AMOXICILLIN/CLAVULANATE K 875-125 MG TAB 1 TABLET PO (20:24)
[2024-02-08] MEDS: INSULIN GLARGINE (*BKC) 100 UNITS/ML 10 UNITS SUB-Q (20:25)
[2024-02-08 20:33] LABS: Glucose Point of Care 139 mg/dl (65-105)
[2024-02-09] VITALS (12 sets, daily range): BP systolic 116–148; BP diastolic 47–94; PULSE 71–87; RESP 16–22; TEMP 36.6–36.8; O2SAT 92–96
[2024-02-09] MEDS: IPRATROPIUM 0.5 MG/ALBUTEROL SULFATE 2.5 MG AMPUL.NEB 3 ML INHALATION ×4 (01:20→19:47)
[2024-02-09 05:32] LABS: Hematocrit 37.4 % (37.0-47.0); Hemoglobin 11.5 g/dL (12.0-15.0); Mean Corpuscular HGB Conc 30.7 g/dl (32-36); Mean Corpuscular Hemoglobin 28.3 pg (26-34); Mean Corpuscular Volume 92.1 fl (80-100); Mean Platelet Volume 8.5 fl (7.4-10.4); Platelet Count Result 225 k/mm3 (150-375); Red Blood Count 4.06 M/mm3 (4.2-5.4); Red Cell Distribution Width 14.4 % (11.5-14.5); White Blood Count 7.1 K/mm3 (4.5-10.0)
[2024-02-09 05:42] LABS: Alanine Aminotransferase 21 U/L (6-35); Albumin Level 3.4 g/dL (3.5-5.1); Alkaline Phosphatase 76 U/L (38-126); Anion Gap 3 mmol/L (4-12); Aspartate Amino Transferase 28 U/L (14-36); Bilirubin,Total 0.5 mg/dL (0.2-1.3); Blood Urea Nitrogen 11 mg/dL (7-17); Calcium 9.1 mg/dL (8.4-10.2); Carbon Dioxide 33 mmol/L (22-30); Chloride 105 mmol/L (98-107); Estimated CRCL calculation 93 ml/min; Estimated Glomerular Filt Rate > 60; Glucose 113 mg/dL (65-110); Potassium 4.5 mmol/L (3.4-5.0); Sodium 141 mmol/L (137-145)
[2024-02-09 07:59] LABS: Glucose Point of Care 94 mg/dl (65-105)
[2024-02-09] MEDS: HYDROcodone/acetaminophen (*CRX) 10-325 MG TABLET 1 TAB PO ×3 (08:08→20:26)
[2024-02-09] MEDS: HYDROXYCHLOROQUINE SULFATE 200 MG TABLET PO (08:08)
[2024-02-09] MEDS: AMOXICILLIN/CLAVULANATE K 875-125 MG TAB 1 TABLET PO ×2 (08:08→20:25)
[2024-02-09] MEDS: buPROPion HCL XL (24 HR) 150 MG TABCR 300 MG PO (08:08)
[2024-02-09] MEDS: SERTRALINE HCL 50 MG TABLET 100 MG PO ×2 (08:08→17:09)
[2024-02-09] MEDS: TOLNAFTATE 1% POWDER 45 GM BTL 1 APPLIC TOPICAL ×2 (08:09→20:27)
[2024-02-09] MEDS: ENOXAPARIN 40 MG/0.4 ML SYRINGE SUB-Q (08:13)
--- NOTE | 2024-02-09 09:08 | PM.IMPN ---
Progress Note: A&P Assessment and Plan (1) Sepsis: Qualifiers: Sepsis acute organ dysfunction status: without acute organ dysfunction Code(s): A41.9 - Sepsis, unspecified organism Status: Acute Assessment and Plan: - lactic acid ordered- negative - blood cultures- prelim-negative, UA cultures collected- C/S completed-pt on ceftriaxone already- appropriate -will deescalate antibiotics -received 2l IV fluid upon admission- IV fluids were stopped 02/05 - no fevers- stable- monitor (2) Type 2 diabetes mellitus: Qualifiers: Diabetes mellitus complication detail: with other skin complication Diabetes mellitus complication status: with skin complications Diabetes mellitus terminal operations supervisor insulin use: with terminal operations supervisor use Qualified Code(s): E11.628 - Type 2 diabetes mellitus with other skin complications; Z79.4 - correction (current) use of insulin Code(s): E11.9 - Type 2 diabetes mellitus without complications Status: Acute Assessment and Plan: # t2dm - will order accucheck ac/hs - SS and lantus at hs - hgA1C ordered - diabetic diet (3) Obstructive sleep apnea: Code(s): G47.33 - Obstructive sleep apnea (adult) (pediatric) Status: Acute Assessment and Plan: -cpap (4) Morbid obesity with body mass index (BMI) greater than or equal to 50: Code(s): E66.01 - Morbid (severe) obesity due to excess calories Status: Acute (5) Cellulitis: Qualifiers: Laterality: left Site of cellulitis: extremity Site of cellulitis of extremity: lower extremity Qualified Code(s): L03.116 - Cellulitis of left lower limb Code(s): L03.90 - Cellulitis, unspecified Status: Acute Assessment and Plan: # cellulitis LLE - failed outpt treatment - was started on ceftriaxone and vanc - deescalating therapy today since improved -augmentin PO in anticipation for rehab discharge (6) Physical deconditioning: Code(s): R53.81 - Other malaise Status: Acute Assessment and Plan: PT/OT eval done - skilled PT services recommended upon discharge - working with Care coordination for placement (7) GENEVIEVE (generalized anxiety disorder): Code(s): F41.1 - Generalized anxiety disorder Status: Acute Assessment and Plan: gets very anxious with any activity - will try atarax prn Plan PT/OT worked with pt on 02/06 and recommended that pt would benefit from [facility] Time Spent With Patient Time with patient: less than 15 minutes Subjective Date/time seen: 02/09/24 09:08 Interval history: 8-year-old female with PMH of COPD-oxyygen dependent, fibromialgia, obesity, STEVE currently being treated outpt for cellulitis presenting for concerns for generalized weakness, possibly a syncopal episode today. ? currently says she is feeling a bit better but not completely 100% self. - cellulitis of her left lower extremity.? Suspect possible early sepsis, failed outpatient cellulitis therapy.?? Started on vancomycin. ?Consistent with infection-Leukocytosis present CRP elevated.? BMI 53, she has chronic back and knee pain? His also added on ceftriaxone.? Admitted to [facility] for cellulitis with UTI and early sepsis.? 02/05- WBC improved from 20.8 (02/03) to 11.7 today (02/05). lactic negative. Urine culture- gram negative bacilli- on ceftriaxone already. BS stable. Will order PT for eval. Eating and drinking well- will stop IV fluids. Faint wheezing noted- pt is refusing chest xray or any other tests at this points- states that her insurance doensot cover anything and she owes a lot of money for hospital bills. will f/u on this with child care team lead. Pt gets very emotional and tearfull. 02/06- feeling better today- breathing is not labored, no wheezes. encouraged to work with PT today 02/07- seen and examined today. will deescalate antibiotic therapy. Working on placement. continue to work with PT/OT 02/08- anticipated [facility] to [facility]
[2024-02-09 09:44] LABS: Glucose Point of Care 107 mg/dl (65-105)
--- NOTE | 2024-02-09 11:36 | PCOTNOTE ---
Patient refused treatment this session due to Nausea and pain at 06/07. Patient seemed anxious and emotional.
[2024-02-09 11:42] LABS: Glucose Point of Care 84 mg/dl (65-105)
[2024-02-09] MEDS: CYCLOBENZAPRINE HCL 10 MG TABLET PO (15:33)
[2024-02-09 16:51] LABS: Glucose Point of Care 134 mg/dl (65-105)
[2024-02-09] MEDS: HYDROmorphone HCL INJ (*CRX) 1 MG/ML SYR 0.5 MG IV PUSH (17:09)
[2024-02-09] MEDS: hydrOXYzine HCL 25 MG TABLET 50 MG PO (17:11)
[2024-02-09 20:06] LABS: Glucose Point of Care 122 mg/dl (65-105)
[2024-02-09] MEDS: INSULIN GLARGINE (*BKC) 100 UNITS/ML 10 UNITS SUB-Q (20:26)
[2024-02-10] VITALS (11 sets, daily range): BP systolic 131–146; BP diastolic 44–55; PULSE 74–92; RESP 18–21; TEMP 36.5–36.7; O2SAT 92–96
[2024-02-10] MEDS: IPRATROPIUM 0.5 MG/ALBUTEROL SULFATE 2.5 MG AMPUL.NEB 3 ML INHALATION ×4 (02:15→20:51)
[2024-02-10] MEDS: HYDROcodone/acetaminophen (*CRX) 10-325 MG TABLET 1 TAB PO ×5 (02:44→21:11)
[2024-02-10 06:12] LABS: Hematocrit 37.3 % (37.0-47.0); Hemoglobin 11.6 g/dL (12.0-15.0); Mean Corpuscular HGB Conc 31.1 g/dl (32-36); Mean Corpuscular Hemoglobin 28.5 pg (26-34); Mean Corpuscular Volume 91.6 fl (80-100); Mean Platelet Volume 8.3 fl (7.4-10.4); Platelet Count Result 208 k/mm3 (150-375); Red Blood Count 4.07 M/mm3 (4.2-5.4); Red Cell Distribution Width 14.5 % (11.5-14.5)
[2024-02-10 06:30] LABS: Alanine Aminotransferase 22 U/L (6-35); Albumin Level 3.4 g/dL (3.5-5.1); Alkaline Phosphatase 75 U/L (38-126); Anion Gap 2 mmol/L (4-12); Aspartate Amino Transferase 30 U/L (14-36); Bilirubin,Total 0.5 mg/dL (0.2-1.3); Blood Urea Nitrogen 12 mg/dL (7-17); Calcium 8.9 mg/dL (8.4-10.2); Carbon Dioxide 33 mmol/L (22-30); Chloride 103 mmol/L (98-107); Estimated CRCL calculation 93 ml/min; Estimated Glomerular Filt Rate > 60; Glucose 93 mg/dL (65-110); Potassium 4.1 mmol/L (3.4-5.0); Sodium 138 mmol/L (137-145)
[2024-02-10 08:29] LABS: Glucose Point of Care 83 mg/dl (65-105)
[2024-02-10] MEDS: SERTRALINE HCL 50 MG TABLET 100 MG PO ×2 (08:37→17:13)
[2024-02-10] MEDS: HYDROXYCHLOROQUINE SULFATE 200 MG TABLET PO (08:37)
[2024-02-10] MEDS: buPROPion HCL XL (24 HR) 150 MG TABCR 300 MG PO (08:37)
[2024-02-10] MEDS: ENOXAPARIN 40 MG/0.4 ML SYRINGE SUB-Q (08:37)
[2024-02-10] MEDS: CYCLOBENZAPRINE HCL 10 MG TABLET PO ×2 (08:37→13:03)
[2024-02-10] MEDS: AMOXICILLIN/CLAVULANATE K 875-125 MG TAB 1 TABLET PO ×2 (08:37→21:09)
[2024-02-10] MEDS: TOLNAFTATE 1% POWDER 45 GM BTL 1 APPLIC TOPICAL ×2 (08:38→21:09)
[2024-02-10 11:49] LABS: Glucose Point of Care 88 mg/dl (65-105)
--- NOTE | 2024-02-10 14:12 | P.PNIM_ITS ---
Progress Note: A&P Assessment and Plan (1) Sepsis: Qualifiers: Sepsis acute organ dysfunction status: without acute organ dysfunction Code(s): A41.9 - Sepsis, unspecified organism Status: Acute (2) Type 2 diabetes mellitus: Qualifiers: Diabetes mellitus custodial insulin use: with custodial use Diabetes mellitus complication status: with skin complications Diabetes mellitus complication detail: with other skin complication Qualified Code(s): E11.628 - Type 2 diabetes mellitus with other skin complications; Z79.4 - [facility] (current) use of insulin Code(s): E11.9 - Type 2 diabetes mellitus without complications Status: Acute (3) Obstructive sleep apnea: Code(s): G47.33 - Obstructive sleep apnea (adult) (pediatric) Status: Acute (4) Morbid obesity with body mass index (BMI) greater than or equal to 50: Code(s): E66.01 - Morbid (severe) obesity due to excess calories Status: Acute (5) Cellulitis: Qualifiers: Laterality: left Site of cellulitis: extremity Site of cellulitis of extremity: lower extremity Qualified Code(s): L03.116 - Cellulitis of left lower limb Code(s): L03.90 - Cellulitis, unspecified Status: Acute (6) Physical deconditioning: Code(s): R53.81 - Other malaise Status: Acute (7) GENEVIEVE (generalized anxiety disorder): Code(s): F41.1 - Generalized anxiety disorder Status: Acute Plan Sepsis without septic shock secondary to cellulitis * LLE * With failed p.o. antibiotic * Blood cultures NGTD * Antibiotic cefepime deescalated to p.o. Augmentin * Monitor IV hydration. * Recommended duration of antibiotic therapy for 7-10 days. Diabetes * Accu-Cheks a.c. HS * sliding scale insulin * hold oral diabetic medications * resume patient's home long-acting * Hemoglobin A1c goal less than 7 pending * Diabetic diet * consult to dietitian * encourage lifestyle modifications and weight loss * Optimize Nolberto inhibitors and statins. * Watch for hypoglycemia/hypoglycemic protocol ordered STEVE * CPAP at night * Oxygen p.r.n. * Encourage weight loss Obesity-severe * encourage increased on physical activity and lifestyle modifications * Stress monitoring and eating disorder evaluation. * encourage outpatient weight loss clinic * BMI . * Diet exercise counseling done. * consult to dietitian Physically deconditioned * Generalized anxiety * Started on Atarax * PT OT recommending rehab Code status: Full code per patient DVT prophylaxis: Lovenox Stress ulcer prophylaxis: Protonix 40 daily PT/OT notes: PT/OT recommend rehab Disposition: Patient admitted with sepsis due to left lower extremity cellulitis currently patient is just waiting on rehab placement for discharge requesting no more blood draws unless absolutely needed. Time Spent With Patient Time with patient: 15 - 25 minutes Subjective Date/time seen: 02/10/24 14:12 Interval history: Admission: Medical Record 68-year-old female with PMH of COPD-oxygen dependent, fibromyalgia, obesity, STEVE currently being treated outpt for cellulitis presenting for concerns for generalized weakness, possibly a syncopal episode today. ? currently says she is feeling a bit better but not completely 100% self. - cellulitis of her left lower extremity.? Suspect possible early sepsis, failed outpatient cellulitis therapy.?? Started on vancomycin. ?Consistent with infection-L
--- NOTE | 2024-02-10 14:12 | PM.IMPN ---
Progress Note: A&P Assessment and Plan (1) Sepsis: Qualifiers: Sepsis acute organ dysfunction status: without acute organ dysfunction Code(s): A41.9 - Sepsis, unspecified organism Status: Acute (2) Type 2 diabetes mellitus: Qualifiers: Diabetes mellitus senior living insulin use: with senior living use Diabetes mellitus complication status: with skin complications Diabetes mellitus complication detail: with other skin complication Qualified Code(s): E11.628 - Type 2 diabetes mellitus with other skin complications; Z79.4 - shelter (current) use of insulin Code(s): E11.9 - Type 2 diabetes mellitus without complications Status: Acute (3) Obstructive sleep apnea: Code(s): G47.33 - Obstructive sleep apnea (adult) (pediatric) Status: Acute (4) Morbid obesity with body mass index (BMI) greater than or equal to 50: Code(s): E66.01 - Morbid (severe) obesity due to excess calories Status: Acute (5) Cellulitis: Qualifiers: Laterality: left Site of cellulitis: extremity Site of cellulitis of extremity: lower extremity Qualified Code(s): L03.116 - Cellulitis of left lower limb Code(s): L03.90 - Cellulitis, unspecified Status: Acute (6) Physical deconditioning: Code(s): R53.81 - Other malaise Status: Acute (7) GENEVIEVE (generalized anxiety disorder): Code(s): F41.1 - Generalized anxiety disorder Status: Acute Plan Sepsis without septic shock secondary to cellulitis LLE With failed p.o. antibiotic Blood cultures NGTD Antibiotic cefepime deescalated to p.o. Augmentin Monitor IV hydration. Recommended duration of antibiotic therapy for 7-10 days. Diabetes Accu-Cheks a.c. HS sliding scale insulin hold oral diabetic medications resume patient's home long-acting Hemoglobin A1c goal less than 7 pending Diabetic diet consult to dietitian encourage lifestyle modifications and weight loss Optimize Nolberto inhibitors and statins. Watch for hypoglycemia/hypoglycemic protocol ordered STEVE CPAP at night Oxygen p.r.n. Encourage weight loss Obesity-severe encourage increased on physical activity and lifestyle modifications Stress monitoring and eating disorder evaluation. encourage outpatient weight loss clinic BMI . Diet exercise counseling done. consult to dietitian Physically deconditioned Generalized anxiety Started on Atarax PT OT recommending rehab Code status: Full code per patient DVT prophylaxis: Lovenox Stress ulcer prophylaxis: Protonix 40 daily PT/OT notes: PT/OT recommend rehab Disposition: Patient admitted with sepsis due to left lower extremity cellulitis currently patient is just waiting on rehab placement for discharge requesting no more blood draws unless absolutely needed. Time Spent With Patient Time with patient: 15 - 25 minutes Subjective Date/time seen: 02/10/24 14:12 Interval history: Admission: Medical Record 68-year-old female with PMH of COPD-oxygen dependent, fibromyalgia, obesity, STEVE currently being treated outpt for cellulitis presenting for concerns for generalized weakness, possibly a syncopal episode today. ? currently says she is feeling a bit better but not completely 100% self. - cellulitis of her left lower extremity.? Suspect possible early sepsis, failed outpatient cellulitis therapy.?? Started on vancomycin. ?Consistent with infection-Leukocytosis present CRP elevated.? BMI 53, she has chronic back and knee pain? His also added on ceftriaxone.? Admitted to [facility] for cellulitis with UTI and early sepsis.? 02/05- WBC improved from 20.8 (02/03) to 11.7 today (02/05). lactic negative. Urine culture- gram negative bacilli- on ceftriaxone already. BS stable. Will order PT for eval. Eating and drinking well- will stop IV fluids. Faint wheezing noted- pt is refusing chest xray or any other tests at this points- state
--- NOTE | 2024-02-10 14:28 | PCOTNOTE ---
Attempted to see Patient for OT treatment session this afternoon. Patient verbalized she performed PT this afternoon, is exhausted and can not do 2 session in the afternoon. Patient stated, I'm worn out and no more for today, try back tomorrow .
[2024-02-10 17:01] LABS: Glucose Point of Care 92 mg/dl (65-105)
[2024-02-10 21:01] LABS: Glucose Point of Care 126 mg/dl (65-105)
[2024-02-10] MEDS: traZODone HCL 50 MG TABLET 100 MG PO (21:11)
[2024-02-10] MEDS: INSULIN GLARGINE (*BKC) 100 UNITS/ML 10 UNITS SUB-Q (21:12)
[2024-02-11] VITALS (8 sets, daily range): BP systolic 122–123; BP diastolic 52–89; PULSE 78–89; RESP 16–22; TEMP 36.7; O2SAT 92–97
[2024-02-11] MEDS: IPRATROPIUM 0.5 MG/ALBUTEROL SULFATE 2.5 MG AMPUL.NEB 3 ML INHALATION ×3 (02:47→13:57)
[2024-02-11] MEDS: HYDROcodone/acetaminophen (*CRX) 10-325 MG TABLET 1 TAB PO ×3 (05:46→17:03)
--- NOTE | 2024-02-11 07:30 | P.PNIM_ITS ---
Progress Note: A&P Assessment and Plan (1) Sepsis: Qualifiers: Sepsis acute organ dysfunction status: without acute organ dysfunction Code(s): A41.9 - Sepsis, unspecified organism Status: Acute (2) Type 2 diabetes mellitus: Qualifiers: Diabetes mellitus complication detail: with other skin complication Diabetes mellitus complication status: with skin complications Diabetes mellitus snf insulin use: with snf use Qualified Code(s): E11.628 - Type 2 diabetes mellitus with other skin complications; Z79.4 - half-way (current) use of insulin Code(s): E11.9 - Type 2 diabetes mellitus without complications Status: Acute (3) Obstructive sleep apnea: Code(s): G47.33 - Obstructive sleep apnea (adult) (pediatric) Status: Acute (4) Morbid obesity with body mass index (BMI) greater than or equal to 50: Code(s): E66.01 - Morbid (severe) obesity due to excess calories Status: Acute (5) Cellulitis: Qualifiers: Laterality: left Site of cellulitis: extremity Site of cellulitis of extremity: lower extremity Qualified Code(s): L03.116 - Cellulitis of left lower limb Code(s): L03.90 - Cellulitis, unspecified Status: Acute (6) Physical deconditioning: Code(s): R53.81 - Other malaise Status: Acute (7) GENEVIEVE (generalized anxiety disorder): Code(s): F41.1 - Generalized anxiety disorder Status: Acute Plan Sepsis without septic shock secondary to cellulitis-RESOLVED * LLE * With failed p.o. antibiotic * Blood cultures NGTD * Antibiotic cefepime deescalated to p.o. Augmentin * Monitor IV hydration. * Recommended duration of antibiotic therapy for 7-10 days. Diabetes * Accu-Cheks a.c. HS * sliding scale insulin * hold oral diabetic medications * resume patient's home long-acting * Hemoglobin A1c goal less than 7 pending * Diabetic diet * consult to dietitian * encourage lifestyle modifications and weight loss * Optimize Nolberto inhibitors and statins. * Watch for hypoglycemia/hypoglycemic protocol ordered STEVE * CPAP at night * Oxygen p.r.n. * Encourage weight loss Obesity-severe * encourage increased on physical activity and lifestyle modifications * Stress monitoring and eating disorder evaluation. * encourage outpatient weight loss clinic * BMI . * Diet exercise counseling done. * consult to dietitian Physically deconditioned * Generalized anxiety * Started on Atarax * PT OT recommending rehab Code status: Full code per patient DVT prophylaxis: Lovenox Stress ulcer prophylaxis: Protonix 40 daily PT/OT notes: PT/OT recommend rehab Disposition: Patient admitted with sepsis due to left lower extremity cellulitis currently patient is just waiting on rehab placement for discharge requesting no more blood draws unless absolutely needed. Time Spent With Patient Time with patient: 15 - 25 minutes Subjective Date/time seen: 02/11/24 07:30 Interval history: Admission: Medical Record 68-year-old female with PMH of COPD-oxygen dependent, fibromyalgia, obesity, STEVE currently being treated outpt for cellulitis presenting for concerns for generalized weakness, possibly a syncopal episode today. ? currently says she is feeling a bit better but not completely 100% self. - cellulitis of her left lower extremity.? Suspect possible early sepsis, failed outpatient cellulitis therapy.?? Started on vancomycin. ?Consistent with inf
--- NOTE | 2024-02-11 07:30 | PM.IMPN ---
Progress Note: A&P Assessment and Plan (1) Sepsis: Qualifiers: Sepsis acute organ dysfunction status: without acute organ dysfunction Code(s): A41.9 - Sepsis, unspecified organism Status: Acute (2) Type 2 diabetes mellitus: Qualifiers: Diabetes mellitus complication detail: with other skin complication Diabetes mellitus complication status: with skin complications Diabetes mellitus assisted insulin use: with assisted use Qualified Code(s): E11.628 - Type 2 diabetes mellitus with other skin complications; Z79.4 - residential (current) use of insulin Code(s): E11.9 - Type 2 diabetes mellitus without complications Status: Acute (3) Obstructive sleep apnea: Code(s): G47.33 - Obstructive sleep apnea (adult) (pediatric) Status: Acute (4) Morbid obesity with body mass index (BMI) greater than or equal to 50: Code(s): E66.01 - Morbid (severe) obesity due to excess calories Status: Acute (5) Cellulitis: Qualifiers: Laterality: left Site of cellulitis: extremity Site of cellulitis of extremity: lower extremity Qualified Code(s): L03.116 - Cellulitis of left lower limb Code(s): L03.90 - Cellulitis, unspecified Status: Acute (6) Physical deconditioning: Code(s): R53.81 - Other malaise Status: Acute (7) GENEVIEVE (generalized anxiety disorder): Code(s): F41.1 - Generalized anxiety disorder Status: Acute Plan Sepsis without septic shock secondary to cellulitis-RESOLVED LLE With failed p.o. antibiotic Blood cultures NGTD Antibiotic cefepime deescalated to p.o. Augmentin Monitor IV hydration. Recommended duration of antibiotic therapy for 7-10 days. Diabetes Accu-Cheks a.c. HS sliding scale insulin hold oral diabetic medications resume patient's home long-acting Hemoglobin A1c goal less than 7 pending Diabetic diet consult to dietitian encourage lifestyle modifications and weight loss Optimize Nolberto inhibitors and statins. Watch for hypoglycemia/hypoglycemic protocol ordered STEVE CPAP at night Oxygen p.r.n. Encourage weight loss Obesity-severe encourage increased on physical activity and lifestyle modifications Stress monitoring and eating disorder evaluation. encourage outpatient weight loss clinic BMI . Diet exercise counseling done. consult to dietitian Physically deconditioned Generalized anxiety Started on Atarax PT OT recommending rehab Code status: Full code per patient DVT prophylaxis: Lovenox Stress ulcer prophylaxis: Protonix 40 daily PT/OT notes: PT/OT recommend rehab Disposition: Patient admitted with sepsis due to left lower extremity cellulitis currently patient is just waiting on rehab placement for discharge requesting no more blood draws unless absolutely needed. Time Spent With Patient Time with patient: 15 - 25 minutes Subjective Date/time seen: 02/11/24 07:30 Interval history: Admission: Medical Record 68-year-old female with PMH of COPD-oxygen dependent, fibromyalgia, obesity, STEVE currently being treated outpt for cellulitis presenting for concerns for generalized weakness, possibly a syncopal episode today. ? currently says she is feeling a bit better but not completely 100% self. - cellulitis of her left lower extremity.? Suspect possible early sepsis, failed outpatient cellulitis therapy.?? Started on vancomycin. ?Consistent with infection-Leukocytosis present CRP elevated.? BMI 53, she has chronic back and knee pain? His also added on ceftriaxone.? Admitted to [facility] for cellulitis with UTI and early sepsis.? 02/05- WBC improved from 20.8 (02/03) to 11.7 today (02/05). lactic negative. Urine culture- gram negative bacilli- on ceftriaxone already. BS stable. Will order PT for eval. Eating and drinking well- will stop IV fluids. Faint wheezing noted- pt is refusing chest xray or any other tests at this poin
[2024-02-11 08:16] LABS: Glucose Point of Care 89 mg/dl (65-105)
[2024-02-11] MEDS: buPROPion HCL XL (24 HR) 150 MG TABCR 300 MG PO (09:08)
[2024-02-11] MEDS: PANTOPRAZOLE 40 MG TABLET PO (09:08)
[2024-02-11] MEDS: ACETAMINOPHEN 325 MG TABLET 650 MG PO (09:09)
[2024-02-11] MEDS: AMOXICILLIN/CLAVULANATE K 875-125 MG TAB 1 TABLET PO (09:09)
[2024-02-11] MEDS: HYDROXYCHLOROQUINE SULFATE 200 MG TABLET PO (09:09)
[2024-02-11] MEDS: CYCLOBENZAPRINE HCL 10 MG TABLET PO (09:09)
[2024-02-11] MEDS: SERTRALINE HCL 50 MG TABLET 100 MG PO ×2 (09:09→17:02)
[2024-02-11] MEDS: ENOXAPARIN 40 MG/0.4 ML SYRINGE SUB-Q (09:10)
[2024-02-11] MEDS: TOLNAFTATE 1% POWDER 45 GM BTL 1 APPLIC TOPICAL (09:10)
[2024-02-11 12:10] LABS: Glucose Point of Care 75 mg/dl (65-105)
[2024-02-11 14:01] LABS: Glucose Point of Care 80 mg/dl (65-105)
--- NOTE | 2024-02-11 15:14 | P.DS_ITS ---
DS: Admitting Diagnosis Discharge Date 02/11/2024 Admitting Diagnosis Sepsis without septic shock secondary to cellulitis DS: Discharge Diagnosis Discharge Diagnosis (1) Sepsis: Qualifiers: Sepsis acute organ dysfunction status: without acute organ dysfunction Code(s): A41.9 - Sepsis, unspecified organism Status: Acute (2) Type 2 diabetes mellitus: Qualifiers: Diabetes mellitus complication detail: with other skin complication Diabetes mellitus complication status: with skin complications Diabetes mellitus half-way insulin use: with intermediate school teacher use Qualified Code(s): E11.628 - Type 2 diabetes mellitus with other skin complications; Z79.4 - assisted (current) use of insulin Code(s): E11.9 - Type 2 diabetes mellitus without complications Status: Chronic (3) Obstructive sleep apnea: Code(s): G47.33 - Obstructive sleep apnea (adult) (pediatric) Status: Chronic (4) Morbid obesity with body mass index (BMI) greater than or equal to 50: Code(s): E66.01 - Morbid (severe) obesity due to excess calories Status: Chronic (5) Cellulitis: Qualifiers: Laterality: left Site of cellulitis: extremity Site of cellulitis of extremity: lower extremity Qualified Code(s): L03.116 - Cellulitis of left lower limb Code(s): L03.90 - Cellulitis, unspecified Status: Acute (6) Physical deconditioning: Code(s): R53.81 - Other malaise Status: Acute (7) GENEVIEVE (generalized anxiety disorder): Code(s): F41.1 - Generalized anxiety disorder Status: Chronic Plan Sepsis without septic shock secondary to cellulitis-RESOLVED * LLE * With failed p.o. antibiotic * Blood cultures NGTD * Antibiotic cefepime deescalated to p.o. Augmentin * Monitor IV hydration. * Recommended duration of antibiotic therapy for 7-10 days. Diabetes * Accu-Cheks a.c. HS * sliding scale insulin * hold oral diabetic medications * resume patient's home long-acting * Hemoglobin A1c goal less than 7 pending * Diabetic diet * consult to dietitian * encourage lifestyle modifications and weight loss * Optimize Nolberto inhibitors and statins. * Watch for hypoglycemia/hypoglycemic protocol ordered STEVE * CPAP at night * Oxygen p.r.n. * Encourage weight loss Obesity-severe * encourage increased on physical activity and lifestyle modifications * Stress monitoring and eating disorder evaluation. * encourage outpatient weight loss clinic * BMI . * Diet exercise counseling done. * consult to dietitian Physically deconditioned * Generalized anxiety * Started on Atarax * PT OT recommending rehab Disposition: Patient discharged to [facility] unit for rehab DS: Summary Hospital Course Reason for hospitalization: Sepsis without septic shock secondary to cellulitis Hospital Course: Admission: Medical Record 68-year-old female with PMH of COPD-oxygen dependent, fibromyalgia, obesity, STEVE currently being treated outpt for cellulitis presenting for concerns for generalized weakness, possibly a syncopal episode today. ? currently says she is feeling a bit better but not completely 100% self. - cellulitis of her left lower extremity.? Suspect possible early sepsis, failed outpatient cellulitis therapy.?? Started on vancomycin. ?Consistent with infection-Leukocytosis present CRP elevated.? BMI 53, she has chronic back and knee pain? His also added on ceftriaxone.? Admitted to [facility] for
--- NOTE | 2024-02-11 15:14 | PM.DS ---
DS: Admitting Diagnosis Discharge Date 02/11/2024 Admitting Diagnosis Sepsis without septic shock secondary to cellulitis DS: Discharge Diagnosis Discharge Diagnosis (1) Sepsis: Qualifiers: Sepsis acute organ dysfunction status: without acute organ dysfunction Code(s): A41.9 - Sepsis, unspecified organism Status: Acute (2) Type 2 diabetes mellitus: Qualifiers: Diabetes mellitus complication detail: with other skin complication Diabetes mellitus complication status: with skin complications Diabetes mellitus [facility] insulin use: with [facility] use Qualified Code(s): E11.628 - Type 2 diabetes mellitus with other skin complications; Z79.4 - custodial (current) use of insulin Code(s): E11.9 - Type 2 diabetes mellitus without complications Status: Chronic (3) Obstructive sleep apnea: Code(s): G47.33 - Obstructive sleep apnea (adult) (pediatric) Status: Chronic (4) Morbid obesity with body mass index (BMI) greater than or equal to 50: Code(s): E66.01 - Morbid (severe) obesity due to excess calories Status: Chronic (5) Cellulitis: Qualifiers: Laterality: left Site of cellulitis: extremity Site of cellulitis of extremity: lower extremity Qualified Code(s): L03.116 - Cellulitis of left lower limb Code(s): L03.90 - Cellulitis, unspecified Status: Acute (6) Physical deconditioning: Code(s): R53.81 - Other malaise Status: Acute (7) GENEVIEVE (generalized anxiety disorder): Code(s): F41.1 - Generalized anxiety disorder Status: Chronic Plan Sepsis without septic shock secondary to cellulitis-RESOLVED LLE With failed p.o. antibiotic Blood cultures NGTD Antibiotic cefepime deescalated to p.o. Augmentin Monitor IV hydration. Recommended duration of antibiotic therapy for 7-10 days. Diabetes Accu-Cheks a.c. HS sliding scale insulin hold oral diabetic medications resume patient's home long-acting Hemoglobin A1c goal less than 7 pending Diabetic diet consult to dietitian encourage lifestyle modifications and weight loss Optimize Nolberto inhibitors and statins. Watch for hypoglycemia/hypoglycemic protocol ordered STEVE CPAP at night Oxygen p.r.n. Encourage weight loss Obesity-severe encourage increased on physical activity and lifestyle modifications Stress monitoring and eating disorder evaluation. encourage outpatient weight loss clinic BMI . Diet exercise counseling done. consult to dietitian Physically deconditioned Generalized anxiety Started on Atarax PT OT recommending rehab Disposition: Patient discharged to [facility] for rehab DS: Summary Hospital Course Reason for hospitalization: Sepsis without septic shock secondary to cellulitis Hospital Course: Admission: Medical Record 68-year-old female with PMH of COPD-oxygen dependent, fibromyalgia, obesity, STEVE currently being treated outpt for cellulitis presenting for concerns for generalized weakness, possibly a syncopal episode today. ? currently says she is feeling a bit better but not completely 100% self. - cellulitis of her left lower extremity.? Suspect possible early sepsis, failed outpatient cellulitis therapy.?? Started on vancomycin. ?Consistent with infection-Leukocytosis present CRP elevated.? BMI 53, she has chronic back and knee pain? His also added on ceftriaxone.? Admitted to [facility] for cellulitis with UTI and early sepsis.? 02/05- WBC improved from 20.8 (02/03) to 11.7 today (02/05). lactic negative. Urine culture- gram negative bacilli- on ceftriaxone already. BS stable. Will order PT for eval. Eating and drinking well- will stop IV fluids. Faint wheezing noted- pt is refusing chest xray or any other tests at this points- states that her insurance doesn't cover anything and she owes a lot of money for hospital bills. will f/u on this with certified social workers in health care. Pt ubaldo
--- NOTE | 2024-02-11 15:31 | PCPTNOTE ---
Attempted to see patient for PT, however patient declined due to anticipated discharge this date.
[2024-02-11 17:12] LABS: Glucose Point of Care 91 mg/dl (65-105)
== END 2024-02-11 18:20 | disposition swing bed (61) | DRG 872 ==
LOC: ANHED 02-05 00:16 → ANH2MED 02-05 01:27
PROVIDERS: Nurse Practitioner; Admitting Provider Internal Medicine; Emergency Provider Emergency Medicine; PCP Internal Medicine; Visit Provider Nurse Practitioner Family
DX: A41.9 Sepsis, unspecified organism (principal); L03.116 Cellulitis of left lower limb; Z68.43 Body mass index [BMI] 50.0-59.9, adult; N39.0 Urinary tract infection, site not specified; B96.89 Other specified bacterial agents as the cause of diseases classified elsewhere; E66.01 Morbid (severe) obesity due to excess calories; F41.1 Generalized anxiety disorder; G47.33 Obstructive sleep apnea (adult) (pediatric); G89.29 Other chronic pain; J44.9 Chronic obstructive pulmonary disease, unspecified; M79.7 Fibromyalgia; M54.9 Dorsalgia, unspecified; M10.9 Gout, unspecified; Z90.49 Acquired absence of other specified parts of digestive tract; Z79.4 Long term (current) use of insulin; Z90.710 Acquired absence of both cervix and uterus; Z87.891 Personal history of nicotine dependence; E11.628 Type 2 diabetes mellitus with other skin complications; Z91.199 Patient's noncompliance with other medical treatment and regimen due to unspecified reason; Z99.89 Dependence on other enabling machines and devices
CPT/HCPCS: 36415; 71045; 80053; 80202; 81001; 82565; 82948; 83036; 83605; 85025; 85027; 85610; 85730; 86140; 87040; 87077; 87086; 87088; 87186; 87637; 93005; 93970; 94640; 96365; 96367; 96375; 97110; 97161; 97165; 97530; 97535; 99285; A9270; J0696; J1170; J1650; J1815; J2270; J3370; J7030

== ENCOUNTER 2024-02-11 16:48 | Inpatient (IN) | payer MEDICARE, SELFPAY ==
[2024-02-11 20:00] VITALS: PULSE 62; RESP 16; O2SAT 94
[2024-02-11 20:01] VITALS: BMI 57.4
[2024-02-11 20:32] VITALS: PULSE 62; RESP 16; O2SAT 94
[2024-02-11] MEDS: HYDROcodone/acetaminophen (*CRX) 10-325 MG TABLET 1 TAB PO (20:42)
[2024-02-11 20:46] LABS: Glucose Point of Care 112 mg/dl (65-105)
[2024-02-11] MEDS: INSULIN GLARGINE (*BKC) 1,000 UNITS/10 ML VIAL 10 UNITS SUB-Q (21:00)
[2024-02-11] MEDS: AMOXICILLIN/CLAVULANATE K 875-125 MG TAB 1 TABLET PO (21:00)
[2024-02-11] MEDS: CYCLOBENZAPRINE HCL 10 MG TABLET PO (21:00)
[2024-02-11] MEDS: traZODone HCL 50 MG TABLET 100 MG PO (21:00)
[2024-02-11] MEDS: SERTRALINE HCL 50 MG TABLET 100 MG PO (21:01)
[2024-02-11] MEDS: TOLNAFTATE 1% POWDER 45 GM BTL 1 APPLIC TOPICAL (21:01)
[2024-02-12] VITALS: BP 122/72; PULSE 66; RESP 16; TEMP 36.8; O2SAT 95
[2024-02-12] MEDS: ALBUTEROL SULFATE (*SP) INHALER 2 PUFF INHALATION ×2 (00:26→05:34)
[2024-02-12] MEDS: HYDROcodone/acetaminophen (*CRX) 10-325 MG TABLET 1 TAB PO ×4 (00:48→20:11)
[2024-02-12] MEDS: hydrOXYzine HCL 25 MG TABLET 50 MG PO ×2 (00:48→20:12)
[2024-02-12 07:40] LABS: Glucose Point of Care 87 mg/dl (65-105)
--- NOTE | 2024-02-12 07:55 | PM.IMHP ---
H&P: HPI History of Present Illness Date/Time: 02/12/24 07:55 Chief Complaint: Weakness physical deconditioning cellulitis Narrative: This is a 68-year-old female with a significant past medical history of COPD, fibromyalgia, obesity, STEVE, hypertension, gout, psoriasis, depression, former smoker who presents to [facility] with increased weakness and generalized deconditioning for rehab. she was recently admitted to [facility] for weakness, possible syncopal episode, and cellulitis currently on Augmentin antibiotics as treatment. therapy notes from [place] showed that she can not ambulate 26 ft with wheeled walker with 1 assist. labs from 02/10/2024 were reviewed and were essentially unremarkable other than a hemoglobin of 11.6. Last echo from 11/03/2023 was also reviewed which shown normal LV systolic function with an estimated EF of 65-70%, normal RV systolic function, no pulmonary edema or pericardial effusion seen. Patient denies any fever, chills, nausea, vomiting, diarrhea, abdominal pain, chest pain, shortness a breath. Patient endorses mild pain in her right lower extremity where the cellulitis is. plan is will continue on Augmentin and work with PT and OT. Review of Systems Review of Systems: All systems reviewed & are unremarkable except as noted in HPI and below Constitutional: Constitutional: Reports as per HPI and Reports no additional constitutional complaints Eyes: Eyes: Reports as per HPI and Reports no additional eye complaints ENT: Reports system reviewed and no additional complaints, except as documented and Reports as per HPI Cardiovascular: Cardiovascular: Reports as per HPI and Reports no additional cardiovascular complaints Respiratory: Respiratory: Reports as per HPI and Reports no additional respiratory complaints Gastrointestinal: Gastrointestinal: Reports as per HPI and Reports no additional gastrointestinal complaints Genitourinary: Genitourinary: Reports no additional female genitourinary complaints and Reports as per HPI Musculoskeletal: Musculoskeletal: Reports no additional musculoskeletal complaints and Reports as per HPI Integumentary/Breasts: Skin/Breast: Reports system reviewed and no additional complaints, except as docu and Reports as per HPI Neurologic: Reports system reviewed and no additional complaints, except as documented and Reports as per HPI Psychiatric: Psychiatric: Reports no additional psychiatric complaints and Reports as per HPI [facility] Past Medical History Medical History Arthritis Asthma Depression Eczema ESR raised Fibromyalgia (~2006) Gout Hypertension Morbid obesity with body mass index (BMI) greater than or equal to 50 Obstructive sleep apnea PMR (polymyalgia rheumatica) Psoriasis Umbilical hernia Surgical History Surgical History H/O section X2 History of appendectomy History of cholecystectomy History of total abdominal hysterectomy Family History Family History Mother Cancer Sibling Cerebrovascular accident Father Heart attack Social History Social History Social History: She lives alone in her own home. She has a daughter that lives in our way and a son that lives 2 hours away. She smoked less than a pack of cigarettes per day from the time she was a teenager until approximately 1999. She denies any excessive alcohol use or illicit substance use. She ambulates with a walker. Code status: Full code Surrogate decision maker: Vicki Amadorjosselyn (daughter) Smoking packs per day: 2 Smoking cigarettes per day: 40.0 Years smoked: 33 Smoking pack-years: 66.00 Smoking status: Former smoker Tobacco type: cigarettes Second hand tobacco smoke exposure: No Smoking end date:
[2024-02-12 08:00] VITALS: BP 134/62; PULSE 78; RESP 18; TEMP 36.6; O2SAT 96
[2024-02-12] MEDS: TOLNAFTATE 1% POWDER 45 GM BTL 1 APPLIC TOPICAL ×2 (08:03→20:13)
[2024-02-12] MEDS: buPROPion HCL XL (24 HR) 150 MG TABCR 300 MG PO (08:40)
[2024-02-12] MEDS: SERTRALINE HCL 50 MG TABLET 100 MG PO ×2 (08:40→16:37)
[2024-02-12] MEDS: HYDROXYCHLOROQUINE SULFATE 200 MG TABLET PO (08:40)
[2024-02-12] MEDS: AMOXICILLIN/CLAVULANATE K 875-125 MG TAB 1 TABLET PO ×2 (08:41→20:11)
[2024-02-12 10:00] VITALS: PULSE 78
[2024-02-12] MEDS: METOPROLOL SUCCINATE EXT REL 25 MG, METOPROLOL SUCCINATE EXT REL 50 MG 75 MG PO (10:00)
[2024-02-12 11:54] LABS: Glucose Point of Care 72 mg/dl (65-105)
[2024-02-12 15:50] VITALS: BP 128/59; PULSE 74; RESP 16; TEMP 36.4; O2SAT 94
[2024-02-12 16:38] LABS: Glucose Point of Care 92 mg/dl (65-105)
[2024-02-12 20:00] VITALS: PULSE 65; RESP 16; O2SAT 95
[2024-02-12] MEDS: INSULIN GLARGINE (*BKC) 1,000 UNITS/10 ML VIAL 10 UNITS SUB-Q (20:10)
[2024-02-12] MEDS: traZODone HCL 50 MG TABLET 100 MG PO (20:11)
[2024-02-12 20:12] LABS: Glucose Point of Care 133 mg/dl (65-105)
[2024-02-12] MEDS: CYCLOBENZAPRINE HCL 10 MG TABLET PO (20:12)
[2024-02-12 20:32] VITALS: PULSE 66; RESP 16; O2SAT 96
[2024-02-13] VITALS: BP 125/59; PULSE 61; RESP 16; TEMP 36.5; O2SAT 96
[2024-02-13] MEDS: HYDROcodone/acetaminophen (*CRX) 10-325 MG TABLET 1 TAB PO ×3 (02:13→13:53)
[2024-02-13 07:48] LABS: Glucose Point of Care 91 mg/dl (65-105)
[2024-02-13 08:00] VITALS: BP 116/56; PULSE 58; RESP 14; TEMP 36.5; O2SAT 91
[2024-02-13 08:38] VITALS: PULSE 58
[2024-02-13] MEDS: METOPROLOL SUCCINATE EXT REL 25 MG, METOPROLOL SUCCINATE EXT REL 50 MG 75 MG PO (08:38)
[2024-02-13] MEDS: AMOXICILLIN/CLAVULANATE K 875-125 MG TAB 1 TABLET PO ×2 (08:38→20:48)
[2024-02-13] MEDS: HYDROXYCHLOROQUINE SULFATE 200 MG TABLET PO (08:40)
[2024-02-13] MEDS: buPROPion HCL XL (24 HR) 150 MG TABCR 300 MG PO (08:40)
[2024-02-13] MEDS: SERTRALINE HCL 50 MG TABLET 100 MG PO ×2 (08:40→17:12)
[2024-02-13] MEDS: TOLNAFTATE 1% POWDER 45 GM BTL 1 APPLIC TOPICAL ×2 (08:41→20:49)
[2024-02-13 12:18] LABS: Glucose Point of Care 71 mg/dl (65-105)
[2024-02-13] MEDS: CYCLOBENZAPRINE HCL 10 MG TABLET PO (13:55)
[2024-02-13 14:01] VITALS: BMI 26.6
[2024-02-13 16:00] VITALS: BP 125/78; PULSE 60; RESP 17; TEMP 36.1; O2SAT 93
[2024-02-13 16:43] LABS: Glucose Point of Care 88 mg/dl (65-105)
[2024-02-13 19:15] VITALS: BP 134/53; PULSE 63; RESP 24; TEMP 36.6; O2SAT 94
[2024-02-13 20:00] VITALS: PULSE 63; RESP 20; O2SAT 94
[2024-02-13] MEDS: INSULIN GLARGINE (*BKC) 1,000 UNITS/10 ML VIAL 10 UNITS SUB-Q (20:52)
[2024-02-13 21:01] LABS: Glucose Point of Care 94 mg/dl (65-105)
[2024-02-13] MEDS: traZODone HCL 50 MG TABLET 100 MG PO (21:03)
[2024-02-14] VITALS: BP 128/50; PULSE 58; RESP 20; TEMP 36.4; O2SAT 97
--- NOTE | 2024-02-14 00:20 | PC.NURSE ---
Pt assisted to the commode with her walker and she voided. Pt returned to the chair with assist of one.
--- NOTE | 2024-02-14 00:45 | PC.NURSE ---
Pt requested a pain pill for c/o overall body pain. Pt rated her pain as a '6' on a 1-10 pain scale. Pt given [place] 10/325 one tablet PO to relieve discomfort.l
[2024-02-14] MEDS: HYDROcodone/acetaminophen (*CRX) 10-325 MG TABLET 1 TAB PO ×2 (00:48→15:18)
--- NOTE | 2024-02-14 02:06 | PC.NURSE ---
Pt asleep and no signs of discomfort noted.
--- NOTE | 2024-02-14 03:00 | PC.NURSE ---
Pt assisted to the commode with the walker and standby assist of one. Pt voided and returned to the chair with her walker and standby assist of one. Asked pt about her pain level since being given a pain pill; Pt rated her pain as a '6' on a 1-10 pain scale.
[2024-02-14 07:52] LABS: Glucose Point of Care 100 mg/dl (65-105)
[2024-02-14 08:00] VITALS: BP 135/59; PULSE 57; RESP 14; TEMP 35.8; O2SAT 95
[2024-02-14 09:37] VITALS: PULSE 57
[2024-02-14] MEDS: METOPROLOL SUCCINATE EXT REL 25 MG, METOPROLOL SUCCINATE EXT REL 50 MG 75 MG PO (09:37)
[2024-02-14] MEDS: AMOXICILLIN/CLAVULANATE K 875-125 MG TAB 1 TABLET PO ×2 (09:37→20:42)
[2024-02-14] MEDS: HYDROXYCHLOROQUINE SULFATE 200 MG TABLET PO (09:38)
[2024-02-14] MEDS: buPROPion HCL XL (24 HR) 150 MG TABCR 300 MG PO (09:39)
[2024-02-14] MEDS: SERTRALINE HCL 50 MG TABLET 100 MG PO ×2 (09:39→17:47)
[2024-02-14] MEDS: TOLNAFTATE 1% POWDER 45 GM BTL 1 APPLIC TOPICAL ×2 (09:43→20:43)
--- NOTE | 2024-02-14 09:44 | P.PNCROSS_ITS ---
Event Note Event Note Event Note: I was called to patient bedside by RN due to dyspnea and wheezing. Patient rec ently admitted for rehab after hospitalization for lower extremity cellulitis. Patient reports history of asthma. Significant full cycle wheezing with moderately labored and tachypneic breathing noted. Ordered Duoneb which improved symptoms significantly. Duonebs added Q4H PRN. Additionally, patient's blood sugars have been extremely well controlled. Changed to daily check before breakfast and as needed for symptoms of hypoglycemia. Sliding scale insulin discontinued but meal time and long acting left the same.
[2024-02-14] MEDS: IPRATROPIUM 0.5 MG/ALBUTEROL SULFATE 2.5 MG AMPUL.NEB 3 ML INHALATION (09:56)
[2024-02-14 11:59] LABS: Glucose Point of Care 94 mg/dl (65-105)
[2024-02-14] MEDS: CYCLOBENZAPRINE HCL 10 MG TABLET PO (15:19)
[2024-02-14 15:36] VITALS: BP 130/74; PULSE 62; RESP 19; TEMP 36.6; O2SAT 98
[2024-02-14 20:15] VITALS: PULSE 71; RESP 20; O2SAT 94
[2024-02-14] MEDS: traMADol HCL (*CRX) 50 MG TABLET PO (20:42)
[2024-02-14] MEDS: traZODone HCL 50 MG TABLET 100 MG PO (20:43)
[2024-02-14] MEDS: INSULIN GLARGINE (*BKC) 1,000 UNITS/10 ML VIAL 10 UNITS SUB-Q (20:44)
[2024-02-14 20:49] LABS: Glucose Point of Care 94 mg/dl (65-105)
[2024-02-15] VITALS: BP 102/45; PULSE 62; RESP 20; TEMP 36.1; O2SAT 94
[2024-02-15] MEDS: CYCLOBENZAPRINE HCL 10 MG TABLET PO ×2 (05:26→16:01)
[2024-02-15] MEDS: HYDROcodone/acetaminophen (*CRX) 10-325 MG TABLET 1 TAB PO ×3 (05:27→20:42)
--- NOTE | 2024-02-15 05:30 | PC.NURSE ---
Pt up to the commode and voided; Upon returning to [facility] chair, pt requested pain medication and a muscle relaxant. Pt given [place] 10/325 and Flexeril 10 mg PO to relieve discomfort.
[2024-02-15 06:01] LABS: Basophils Absolute Auto 0.04 K/mm3 (0.00-0.10); Basophils Percent Auto 0.6 % (0.0-1.0); Eosinophils Absolute Auto 0.26 K/mm3 (0.02-0.50); Eosinophils Percent Auto 3.9 % (1.0-6.0); Hematocrit 38.6 % (35.0-42.0); Immature Granulocyte Absolute 0.04 K/mm3 (0.00-0.00); Immature Granulocyte Percent A 0.6 % (0.0-0.0); Lymphocytes Absolute Auto 0.95 K/mm3 (1.10-4.50); Lymphocytes Percent Auto 14.3 % (18.0-42.0); Mean Corpuscular HGB Conc 31.1 g/dL (32-36); Mean Corpuscular Hemoglobin 28.4 pg (27.0-31.0); Mean Corpuscular Volume 91.3 fL (78.0-102.0); Mean Platelet Volume 8.7 fl (9.2-11.8); Monocytes Absolute Auto 0.32 K/mm3 (0.10-0.90); Monocytes Percent Auto 4.8 % (2.0-11.0); Neutrophils Absolute Auto 5.05 K/mm3 (1.70-7.20); Neutrophils Percent Auto 75.8 % (50.0-70.0); Platelet Count Result 232 K/mm3 (150-420); Red Blood Count 4.23 M/mm3 (4.20-5.40); Red Cell Distribution Width 14.6 % (11.6-14.4); White Blood Count 6.7 K/mm3 (4.8-10.8)
[2024-02-15 07:05] LABS: Alanine Aminotransferase 19 U/L (6-35); Albumin Level 3.9 g/dL (3.5-5.1); Alkaline Phosphatase 75 U/L (38-126); Anion Gap 5 mmol/L (4-12); Aspartate Amino Transferase 31 U/L (14-36); Bilirubin,Total 0.4 mg/dL (0.2-1.3); Blood Urea Nitrogen 17 mg/dL (7-17); Calcium 8.9 mg/dL (8.4-10.2); Carbon Dioxide 30 mmol/L (22-30); Chloride 104 mmol/L (98-107); Estimated CRCL calculation 52 ml/min; Estimated Glomerular Filt Rate > 60; Glucose 99 mg/dL (65-110); Osmolality Calculated 289 mOsm/kg (285-295); Potassium 4.1 mmol/L (3.4-5.0); Sodium 139 mmol/L (137-145)
[2024-02-15 07:46] LABS: Glucose Point of Care 90 mg/dl (65-105)
[2024-02-15 08:00] VITALS: BP 135/57; PULSE 54; RESP 16; TEMP 35.8; O2SAT 93
[2024-02-15] MEDS: SERTRALINE HCL 50 MG TABLET 100 MG PO ×2 (08:23→16:01)
[2024-02-15] MEDS: buPROPion HCL XL (24 HR) 150 MG TABCR 300 MG PO (08:23)
[2024-02-15] MEDS: AMOXICILLIN/CLAVULANATE K 875-125 MG TAB 1 TABLET PO ×2 (08:23→20:40)
[2024-02-15] MEDS: HYDROXYCHLOROQUINE SULFATE 200 MG TABLET PO (08:24)
[2024-02-15 08:27] VITALS: PULSE 54
[2024-02-15] MEDS: TOLNAFTATE 1% POWDER 45 GM BTL 1 APPLIC TOPICAL ×2 (08:27→20:47)
--- NOTE | 2024-02-15 09:07 | PC.NURSE ---
Metoprolol Succinate held due to pulse at 54. Parameters for administration are 60-100bpm.
[2024-02-15 16:00] VITALS: BP 134/59; PULSE 59; RESP 16; TEMP 36.1; O2SAT 94
[2024-02-15 20:00] VITALS: PULSE 59; RESP 16; O2SAT 94
[2024-02-15] MEDS: traZODone HCL 50 MG TABLET 100 MG PO (20:40)
[2024-02-15] MEDS: hydrOXYzine HCL 25 MG TABLET 50 MG PO (20:40)
[2024-02-15] MEDS: INSULIN GLARGINE (*BKC) 1,000 UNITS/10 ML VIAL 10 UNITS SUB-Q (20:47)
[2024-02-15 23:56] VITALS: BP 119/60; PULSE 60; RESP 17; TEMP 36.4; O2SAT 94
[2024-02-16 07:36] LABS: Glucose Point of Care 87 mg/dl (65-105)
[2024-02-16] MEDS: SERTRALINE HCL 50 MG TABLET 100 MG PO ×2 (07:41→17:24)
[2024-02-16 07:42] VITALS: PULSE 64
[2024-02-16] MEDS: buPROPion HCL XL (24 HR) 150 MG TABCR 300 MG PO (07:42)
[2024-02-16] MEDS: HYDROXYCHLOROQUINE SULFATE 200 MG TABLET PO (07:42)
[2024-02-16] MEDS: AMOXICILLIN/CLAVULANATE K 875-125 MG TAB 1 TABLET PO ×2 (07:42→20:38)
[2024-02-16] MEDS: METOPROLOL SUCCINATE EXT REL 25 MG, METOPROLOL SUCCINATE EXT REL 50 MG 75 MG PO (07:42)
[2024-02-16] MEDS: HYDROcodone/acetaminophen (*CRX) 10-325 MG TABLET 1 TAB PO ×2 (07:43→19:16)
[2024-02-16 08:00] VITALS: BP 118/56; PULSE 64; RESP 18; TEMP 36.6; O2SAT 97
[2024-02-16] MEDS: TOLNAFTATE 1% POWDER 45 GM BTL 1 APPLIC TOPICAL ×2 (09:25→20:37)
[2024-02-16 16:00] VITALS: BP 228/64; PULSE 78; RESP 18; TEMP 36.6; O2SAT 94
[2024-02-16 20:00] VITALS: PULSE 78; RESP 18; O2SAT 94
[2024-02-16] MEDS: traZODone HCL 50 MG TABLET 100 MG PO (20:38)
[2024-02-16] MEDS: hydrOXYzine HCL 25 MG TABLET 50 MG PO (20:38)
[2024-02-16] MEDS: traMADol HCL (*CRX) 50 MG TABLET PO (20:38)
[2024-02-16] MEDS: CYCLOBENZAPRINE HCL 10 MG TABLET PO (20:38)
[2024-02-16] MEDS: INSULIN GLARGINE (*BKC) 1,000 UNITS/10 ML VIAL 10 UNITS SUB-Q (20:49)
[2024-02-17] VITALS: BP 116/56; PULSE 62; RESP 16; TEMP 36.4; O2SAT 95
[2024-02-17] MEDS: HYDROcodone/acetaminophen (*CRX) 10-325 MG TABLET 1 TAB PO ×4 (04:54→21:08)
[2024-02-17 08:00] VITALS: BP 107/75; PULSE 60; RESP 20; TEMP 36; O2SAT 92
[2024-02-17 08:03] LABS: Glucose Point of Care 84 mg/dl (65-105)
[2024-02-17] MEDS: buPROPion HCL XL (24 HR) 150 MG TABCR 300 MG PO (09:00)
[2024-02-17] MEDS: AMOXICILLIN/CLAVULANATE K 875-125 MG TAB 1 TABLET PO ×2 (09:00→21:07)
[2024-02-17] MEDS: TOLNAFTATE 1% POWDER 45 GM BTL 1 APPLIC TOPICAL ×2 (09:00→21:09)
[2024-02-17] MEDS: SERTRALINE HCL 50 MG TABLET 100 MG PO ×2 (09:00→16:44)
[2024-02-17] MEDS: HYDROXYCHLOROQUINE SULFATE 200 MG TABLET PO (09:00)
[2024-02-17 16:00] VITALS: BP 121/55; PULSE 57; RESP 20; TEMP 35.9; O2SAT 93
[2024-02-17 20:00] VITALS: PULSE 62; RESP 16; O2SAT 94
[2024-02-17] MEDS: INSULIN GLARGINE (*BKC) 1,000 UNITS/10 ML VIAL 10 UNITS SUB-Q (21:07)
[2024-02-17] MEDS: traZODone HCL 50 MG TABLET 100 MG PO (21:08)
[2024-02-17] MEDS: hydrOXYzine HCL 25 MG TABLET 50 MG PO (21:08)
[2024-02-18] VITALS: BP 124/52; PULSE 62; RESP 16; TEMP 36.6; O2SAT 94
[2024-02-18] MEDS: HYDROcodone/acetaminophen (*CRX) 10-325 MG TABLET 1 TAB PO ×4 (05:38→18:27)
[2024-02-18 07:53] LABS: Glucose Point of Care 82 mg/dl (65-105)
[2024-02-18 07:55] VITALS: BP 114/60; PULSE 63; RESP 14; TEMP 35.9; O2SAT 95
[2024-02-18] MEDS: SERTRALINE HCL 50 MG TABLET 100 MG PO ×2 (08:55→16:55)
[2024-02-18 08:56] VITALS: PULSE 63
[2024-02-18] MEDS: buPROPion HCL XL (24 HR) 150 MG TABCR 300 MG PO (08:56)
[2024-02-18] MEDS: METOPROLOL SUCCINATE EXT REL 25 MG, METOPROLOL SUCCINATE EXT REL 50 MG 75 MG PO (08:56)
[2024-02-18] MEDS: HYDROXYCHLOROQUINE SULFATE 200 MG TABLET PO (08:56)
[2024-02-18] MEDS: AMOXICILLIN/CLAVULANATE K 875-125 MG TAB 1 TABLET PO (08:56)
[2024-02-18] MEDS: CYCLOBENZAPRINE HCL 10 MG TABLET PO ×3 (09:01→20:49)
[2024-02-18 16:00] VITALS: BP 117/55; PULSE 59; RESP 15; TEMP 36; O2SAT 92
--- NOTE | 2024-02-18 17:07 | PC.NURSE ---
Patient up in chair with feet elevated. Call light and belongings within reach. Patient alert and oriented x3. Pleasant and cooperative. Skin warm and dry. No c/o offered.
--- NOTE | 2024-02-18 18:39 | PC.NURSE ---
Patient up in chair with legs elevated. Call light and belongings within reach. C/O generalized pain at a 7:10. PRN medication given.
[2024-02-18 20:00] VITALS: O2SAT 94
--- NOTE | 2024-02-18 20:21 | PC.NURSE ---
Patient assisted to bed side commode. Moves well and tolerated well. Uses walker and gait belt for transfer. Call light and belongings within reach.
[2024-02-18] MEDS: traZODone HCL 50 MG TABLET 100 MG PO (20:46)
[2024-02-18] MEDS: hydrOXYzine HCL 25 MG TABLET 50 MG PO (20:47)
[2024-02-18] MEDS: INSULIN GLARGINE (*BKC) 1,000 UNITS/10 ML VIAL 10 UNITS SUB-Q (20:57)
--- NOTE | 2024-02-18 22:24 | PC.NURSE ---
Patient resting quietly in recliner with feet elevated. Call light and belongings within reach. Nurse explained the discharge process to patient and daughter. Skin warm and dry. Skin below breast, abd fold pink, medicated powder applied to areas. Assisted to bedside commode with gait belt and walker.
[2024-02-18] MEDS: TOLNAFTATE 1% POWDER 45 GM BTL 1 APPLIC TOPICAL (22:34)
--- NOTE | 2024-02-18 23:02 | PC.NURSE ---
Pt up to the commode with the walker and standby assist of one. Pt voided and returned to bed with the walker and standby assist of one.
[2024-02-19] VITALS: BP 103/61; PULSE 62; RESP 20; TEMP 36.1; O2SAT 94
--- NOTE | 2024-02-19 01:03 | PC.NURSE ---
Pt asleep and no signs of discomfort noted.
--- NOTE | 2024-02-19 02:48 | PC.NURSE ---
Pt up to the commode with her walker and standby assist of one. Pt voided and returned to the chair with the walker and standby assist of one.
--- NOTE | 2024-02-19 05:13 | PC.NURSE ---
Pt up to the commode with the walker and standby assist of one. Pt voided and returned to the chair with her walker and standby assist of one.
--- NOTE | 2024-02-19 07:00 | PC.NURSE ---
Pt dozing quietly in the chair; No signs of discomfort noted.
--- NOTE | 2024-02-19 07:19 | PM.DS ---
DS: Admitting Diagnosis Discharge Date 02/19/2024 Admitting Diagnosis Physical deconditioning, cellulitis, hypertension, type 2 diabetes mellitus, fibromyalgia, depression, polymyalgia rheumatica, generalized anxiety disorder, obstructive sleep apnea, morbid obesity with BMI greater than or equal to 50 DS: Discharge Diagnosis Discharge Diagnosis (1) Physical deconditioning: Code(s): R53.81 - Other malaise Status: Acute (2) Cellulitis: Qualifiers: Laterality: left Site of cellulitis: extremity Site of cellulitis of extremity: lower extremity Qualified Code(s): L03.116 - Cellulitis of left lower limb Code(s): L03.90 - Cellulitis, unspecified Status: Acute (3) Hypertension: Code(s): I10 - Essential (primary) hypertension Status: Chronic (4) Type 2 diabetes mellitus: Qualifiers: Diabetes mellitus termite control representative insulin use: with termite control representative use Diabetes mellitus complication status: with skin complications Diabetes mellitus complication detail: with other skin complication Qualified Code(s): E11.628 - Type 2 diabetes mellitus with other skin complications; Z79.4 - skilled nursing (current) use of insulin Code(s): E11.9 - Type 2 diabetes mellitus without complications Status: Chronic Assessment and Plan: blood sugars ranging 87-112 last hemoglobin A1c on 02/04 was 4.7 continue Lantus 10 units at bedtime continue 15 units insulin list pro t.i.d. with meals held considering blood sugars ranging 87-112 and hemoglobin A1c was only 4.7 on 02/05/2024 started low-dose sliding scale insulin corrective coverage hypoglycemic protocol in place continue diabetic diet (5) Fibromyalgia: Onset Date: ~2006 Code(s): M79.7 - Fibromyalgia Status: Chronic (6) Depression: Code(s): F32.9 - Major depressive disorder, single episode, unspecified Status: Chronic (7) PMR (polymyalgia rheumatica): Code(s): M35.3 - Polymyalgia rheumatica Status: Chronic (8) GENEVIEVE (generalized anxiety disorder): Code(s): F41.1 - Generalized anxiety disorder Status: Chronic (9) Obstructive sleep apnea: Code(s): G47.33 - Obstructive sleep apnea (adult) (pediatric) Status: Chronic (10) Morbid obesity with body mass index (BMI) greater than or equal to 50: Code(s): E66.01 - Morbid (severe) obesity due to excess calories Status: Chronic DS: Summary Hospital Course Hospital Course: This is a 68-year-old female patient who admitted to swing bed program for weakness and generalized deconditioning status post treatment for lower extremity cellulitis. She worked well with therapy while she was here. She has increased her strength. Antibiotics have been completed and cellulitis appears to be resolved. During hospitalization patient had significant wheezing with dyspnea 1 morning a few days and was treated DuoNebs. She has history and states that all respiratory symptoms been alleviated. She has a history of obstructive sleep apnea and does not utilize CPAP at this time. Prescriptions were written for all of her medications except her insulin and home medication reconciliation completed. While hospitalized blood sugar remained very well controlled with just 10 units of Lantus each night. Status at Discharge Cognitive/behavioral status at discharge: Awake alert oriented and pleasant Functional status at discharge: uses cane/walker Overall status at discharge: patient is progressing back to baseline Time Spent with Patient Time attestation: Total time spent providing and/or coordinating discharge services: 45 minutes Time spent: Greater than 30 minutes Exam Narrative: GENERAL: Improved appearing, obese and in no acute distress. HEAD: Normocephalic, atraumatic. ENT:? Mucous membranes moist. CHEST: Clear to auscultation.? No respiratory distress. No wheezing HEART: Regular rate and rhythm. ? Normal periphe
[2024-02-19 08:00] VITALS: BP 136/69; PULSE 62; RESP 19; TEMP 35.6; O2SAT 93
[2024-02-19 08:14] LABS: Glucose Point of Care 104 mg/dl (65-105)
[2024-02-19 08:38] VITALS: PULSE 80
[2024-02-19] MEDS: HYDROXYCHLOROQUINE SULFATE 200 MG TABLET PO (08:38)
[2024-02-19] MEDS: buPROPion HCL XL (24 HR) 150 MG TABCR 300 MG PO (08:38)
[2024-02-19] MEDS: SERTRALINE HCL 50 MG TABLET 100 MG PO (08:38)
[2024-02-19] MEDS: METOPROLOL SUCCINATE EXT REL 25 MG, METOPROLOL SUCCINATE EXT REL 50 MG 75 MG PO (08:38)
[2024-02-19] MEDS: CYCLOBENZAPRINE HCL 10 MG TABLET PO (08:47)
[2024-02-19] MEDS: HYDROcodone/acetaminophen (*CRX) 10-325 MG TABLET 1 TAB PO (08:47)
--- NOTE | 2024-02-19 11:55 | PC.NURSE ---
Discharge instructions reviewed with patient and her daughter. All questions answered. Pt transported by wheelchair and assisted into private vehicle.
--- NOTE | 2024-03-01 08:54 | PC.NURSE ---
Discharge call back attempted, no answer
--- NOTE | 2024-03-02 09:15 | PC.NURSE ---
Discharge call back completed, no questions or concerns voiced regarding dc instructions
== END 2024-02-19 11:55 | disposition home health service (06) | DRG 948 ==
PROVIDERS: Nurse Practitioner Acute Care; Admitting Provider Internal Medicine; PCP Internal Medicine; Visit Provider Internal Medicine
DX: R53.81 Other malaise (principal); L03.115 Cellulitis of right lower limb; J44.9 Chronic obstructive pulmonary disease, unspecified; I10 Essential (primary) hypertension; E11.628 Type 2 diabetes mellitus with other skin complications; E66.9 Obesity, unspecified; M10.9 Gout, unspecified; M79.7 Fibromyalgia; M19.90 Unspecified osteoarthritis, unspecified site; M35.3 Polymyalgia rheumatica; R06.2 Wheezing; G47.33 Obstructive sleep apnea (adult) (pediatric); F41.1 Generalized anxiety disorder; F32.A Depression, unspecified; Z87.891 Personal history of nicotine dependence; Z79.4 Long term (current) use of insulin
CPT/HCPCS: 36415; 80053; 82948; 85025; 97110; 97161; 97165; 97530; 97535; A9270; J1815

== ENCOUNTER 2025-08-17 12:55 | Inpatient (IN) | payer MEDICARE, SELFPAY ==
[2025-08-17] VITALS (9 sets, daily range): BP systolic 131–156; BP diastolic 54–93; PULSE 77–96; RESP 18–22; TEMP 36.5–36.6; O2SAT 90–97; BMI 57.0
--- NOTE | ~2025-08-17 | XR_ITS ---
EXAMINATION: XR hip BI 2V w AP pelvis, 08/17/2025 13:45 VISOR INSTALLER HISTORY: Bilateral hip injury COMPARISON: No comparisons available. Findings: No acute fracture or malalignment. Moderate to severe bilateral degenerative changes Soft tissues unremarkable. Impression: No acute fracture or malalignment. Reviewed, dictated and finalized at location P. R INSTALLER Impression: No acute fracture or malalignment.
--- NOTE | ~2025-08-17 | XR_ITS ---
XR lumbar spine 2-3V Indication: Low back injury Comparison: None Findings: Moderate loss of vertebral height throughout, no fracture or subluxation. Moderate to severe loss of disc height throughout Soft tissues unremarkable Impression: No acute abnormality. Reviewed, dictated and finalized at location P. ATOR STARTER Impression: No acute abnormality.
--- NOTE | ~2025-08-17 | XR_ITS ---
EXAMINATION: XR chest 1V portable COMPARISON: No comparisons available. HISTORY: Cough congestion FINDINGS: Moderate pulmonary venous congestion. No pneumothorax. Moderate cardiomegaly. Mediastinal and hilar contours are within normal limits. Bony thorax no acute abnormality. Miscellaneous: None Impression: CHF Reviewed, dictated and finalized at location P. BRANDER Impression: CHF
--- NOTE | ~2025-08-17 | CT_ITS ---
EXAMINATION: CT brain wo con DATE: 08/17/2025 14:17 INDICATION: Possible injury TECHNIQUE: Computed tomography (CT) of the head was performed without intravenous contrast. The dose-length product was 605.33 mGy-cm. COMPARISON: November 01, 2023 FINDINGS: Exam limited by extensive artifact associated with patient body habitus. No gross acute intracranial process. There appears to be moderately severe diffuse hypoattenuating white matter changes but no large acute ischemic event, mass effect or bleed. Calvarial structures appear intact. IMPRESSION: 1. Somewhat limited exam as above with no intracranial hemorrhage or large acute ischemic event. Reviewed, dictated and finalized at location A. HANDISE PLANNING MANAGER IMPRESSION: 1. Somewhat limited exam as above with no intracranial hemorrhage or large acut e ischemic event.
--- NOTE | ~2025-08-17 | XR_ITS ---
EXAMINATION: XR shoulder LT min 2V, 08/17/2025 13:45 SPLITTING MACHINE TENDER HISTORY: Shoulder injury COMPARISON: No comparisons available. Findings: No acute fracture or malalignment. No significant degenerative changes. Soft tissues unremarkable. Impression: No acute fracture or malalignment. Reviewed, dictated and finalized at location P. TTING MACHINE TENDER Impression: No acute fracture or malalignment.
--- NOTE | ~2025-08-17 | XR_ITS ---
EXAMINATION: XR shoulder RT min 2V, 08/17/2025 13:45 PROFILE SHAPER OPERATOR HISTORY: Shoulder injury COMPARISON: No comparisons available. Findings: No acute fracture or malalignment. Moderate degenerative changes Soft tissues unremarkable. Impression: No acute fracture or malalignment. Reviewed, dictated and finalized at location P. ILE SHAPER OPERATOR Impression: No acute fracture or malalignment.
--- NOTE | 2025-08-17 13:10 | ECG_ITS ---
Test Date: 2025-08-17 14:35:52 Measurements Intervals [place] Rate: 93 P: 69 SD: 149 QRS: -67 QRSD: 148 T: 1 QT: 383 QTc: 477 Interpretive Statements SINUS RHYTHM RIGHT BUNDLE BRANCH BLOCK [120+ ms QRS DURATION, UPRIGHT V1, 40+ ms S IN I/aVL/V4/V5/V6] LEFT ANTERIOR FASCICULAR BLOCK [QRS AXIS <= -45, QR IN I, RS IN II] POSSIBLE ANTERIOR MYOCARDIAL INFARCTION , OF INDETERMINATE AGE [30 ms Q WAVE IN V3/V4, OR R < 0.2 mV IN V4] No previous ECG available for comparison Electronically Signed On 08-17-2025 14:51:05 MEDICATION MANAGER by Tariq Garnica M.D.
[2025-08-17] MEDS: KETOROLAC 15 MG/ML VIAL (*BKC) IV PUSH (13:35)
[2025-08-17 13:42] LABS: Hematocrit 40.2 % (35.0-42.0); Hemoglobin 12.6 g/dL (11.7-13.8); Immature Granulocyte Percent A 0.8 % (0.0-0.0); Lymphocytes Absolute Auto 0.49 K/mm3 (1.10-4.50); Mean Corpuscular HGB Conc 31.3 g/dL (32-36); Mean Corpuscular Hemoglobin 27.1 pg (27.0-31.0); Mean Corpuscular Volume 86.5 fL (78.0-102.0); Nucleated Red Blood Cells Absolute Auto 0.00 K/mm3 (0.00-0.00); Nucleated Red Blood Cells Perc 0.0 % (0-0.0); Platelet Count Result 167 K/mm3 (150-420); Red Blood Count 4.65 M/mm3 (4.20-5.40); White Blood Count 15.8 K/mm3 (4.8-10.8)
[2025-08-17 13:55] LABS: Alanine Aminotransferase 62 U/L (6-35); Albumin Level 3.9 g/dL (3.5-5.1); Alkaline Phosphatase 85 U/L (38-126); Anion Gap 8 mmol/L (4-12); Aspartate Amino Transferase 212 U/L (14-36); Bilirubin,Total 1.7 mg/dL (0.2-1.3); Blood Urea Nitrogen 18 mg/dL (7-17); Calcium 8.4 mg/dL (8.4-10.2); Carbon Dioxide 30 mmol/L (22-30); Chloride 98 mmol/L (98-107); Creatine Kinase > 1600 U/L (30-135); Estimated CRCL calculation 90 ml/min; Estimated Glomerular Filt Rate > 60; Glucose 170 mg/dL (65-110); Osmolality Calculated 287 mOsm/kg (285-295); Potassium 3.9 mmol/L (3.4-5.0); Sodium 136 mmol/L (137-145); Total Protein 7.5 g/dL (6.3-8.2)
[2025-08-17 14:03] LABS: NT Pro B Type Natriuretic Pept 8420 pg/mL (19.9-100)
[2025-08-17 14:19] LABS: Influenza A QL RT-PCR Negative (Negative); Influenza B QL RT-PCR Negative (Negative); RSV RNA, RT-PCR Negative (Negative); SARS-CoV-2 RNA PCR Negative (Negative)
[2025-08-17 14:59] LABS: Add Urine Microscopic? YES; Appearance Urine Clear (Clear); Glucose Urine UA Trace (Negative); Leukocyte Esterase Ur Negative LEU/UL (Negative); Nitrate Urine Negative (Negative); Specific Grav Ur >= 1.030 (1.010-1.020)
--- NOTE | 2025-08-17 14:59 | ED_ITS ---
HPI - Fall General Chief Complaint: Fall Stated Complaint: fall Time Seen by Provider: 08/17/25 13:09 Source: patient, family and EMS Mode of arrival: EMS Limitations: physical limitation History of Present Illness HPI Narrative: This is a 70-year-old female with a history of morbid obesity diabetes with history of asthma and frequent falls presents via EMS after she had a fall earlier today and fall that occurred yesterday and was on the ground for [id number]. The patient has complaints of some bilateral shoulder bilateral hip and lower back pain. Patient apparently was on the commode and had a fall and today was on the ground for a few hours but yesterday's fall at [id number] on the ground. Patient has no chest pain no shortness of breath no fever chills no nausea vomiting pain level about an 8/10 with no dysuria no hematuria. complaint: fall Onset (ago): day(s) Fall from: chair Fall witnessed: no Place fall occurred: home Loss of consciousness: none Prolonged down time: yes Symptoms prior to fall: none Context: history of frequent falls Related Data Home Medications ?Medication ?Instructions ?Recorded ?Confirmed ?Last Taken ?Type albuterol sulfate 90 mcg/actuation 2 puff inhalation Q ID 11/01/23 02/11/24 02/06/24 08:02 History aerosol inhaler propranolol 80 mg capsule,24 80 mg PO DAILY 11/01/23 0 02/11/24 Unknown History hr,extended release acetaminophen 325 mg tablet 650 mg PO Q6H PRN Pain (Sc priscilla 02/05/24 02/11/24 02/11/24 09:09 History Score 1-3) Allergies Allergy/AdvReac Type Severity Reaction Status Date / Time estrogens, conjugated Allergy Unknown Hives Verified 08/17/25 13:06 latex Allergy Rash Verified 08/17/25 13:06 Review of Systems 2 Review of Systems: All systems reviewed & are unremarkable except as noted in HPI and below PMFSH Past Medical History Medical History Gout PMR (polymyalgia rheumatica) Psoriasis Eczema Umbilical hernia Obstructive sleep apnea Morbid obesity with body mass index (BMI) greater than or equal to 50 ESR raised Fibromyalgia (~2006) Arthritis Asthma Depression Hypertension Surgical History Surgical History History of appendectomy History of cholecystectomy H/O section X2 History of total abdominal hysterectomy Family History Family History Mother Cancer Sibling Cerebrovascular accident Father Heart attack Social History Social History Social History: She lives alone in her own home. She has a daughter that lives in our way and a son that lives 2 hours away. She smoked less than a pack of cigarettes per day from the time she was a teenager until approximately 1999. She denies any excessive alcohol use or illicit substance use. She ambulates with a walker. Code status: Full code Surrogate decision maker: Vicki Padilla (daughter) Smoking packs per day: 2 Smoking cigarettes per day: 40.0 Years smoked: 33 Smoking pack-years: 66.00 Smoking status: Former smoker Tobacco type: cigarettes Second hand tobacco smoke exposure: No Smoking end date: 09/28/03 Alcohol intake: former Drinks per week: 1 Substance use: never Substance use type: does not use Do You Feel Safe in your Home?: Yes Lack of Transportation: No Lack of Food: Never True Current Housing: I Have Housing Concerned About Future Housing: No Difficulty Paying Gas/Electric Bills: YES Difficulty Paying for Meds: No Currently Unemployed: No Education: Grade School Difficulty w/ Childcare or Family Care: No Gender identity (if verbalized by the patient): Female Sexual Orientation (if Verbalized by the Patient): Straight or Heterosexual Spiritual care concerns: No Exam 2 Const: General: no acute distress Nutritional Appearance: obese L imitations: physical limitations HENMT: Head: normal to inspection Face and sinus: normal facial exam Eyes: Conjunctivae: conjunctivae normal Pupils: Equal, round and reactive pupils present EOM: EOMs intact bilaterally Neck: Neck: normal visual inspection, no lymphadenopathy and no meningeal signs Chest: Chest palpation & inspection: normal inspection of the chest Resp: Effort & Inspection: normal respiratory effort Auscultation: clear to auscultation bilaterally Cardio: Rate: regular rate Rhythm: regular rhythm GI: GI Palp: Yes Soft to palpation Auscultation: normal bowel sounds : General: Yes bladder normal to palpation Back/Spine/Pelvis: Back: no CVA tenderness Skin: Rashes: no rashes Wounds: no wounds Neuro: General: patient oriented x3, no meningeal signs and no focal motor deficits Cranial nerves: Yes Nystagmus not present Speech: normal speech Extrem: Other: Pain bilateral shoulders bilateral hips and lower back with palpation and movement Course Course Emergency Course: Medical decision making narrative: The patient was evaluated by myself in the emergency department. History obtained from the patient who is an independent historian physical exam performed in witnessed by nurse. External medical records were reviewed at this time. EKG performed during this admission shows right bundle branch block heart rate of [address] or T changes. Chest x-ray performed and reviewed shows some CHF changes [place] [address] patient had a CK performed that is greater than 1600 with a BNP is 84 20 BUN creatinine of 18 and 0.9 with a glucose of 170. Patient had CT scan of the brain which showed no acute intracranial abnormalities chest x-ray shows CHF changes x-rays performed of the bilateral shoulders hips and lower back showed no acute fractures, lactic acid normal, COVID negative. Patient received Toradol which has improved her pain level and started on IV fluids. Repeat assessment: Patient doing well on repeat exam with no acute distress Symptoms stable since what to the emergency department. Repeat vitals stable. Patient agrees with discussion after shared medical decision making and agrees with admission to the hospital. All questions answered to the patient's satisfaction. Vital Signs Vital signs: Vital Signs Temperature 36.6 C 08/17/25 13:06 Pulse Rate 96 08/17/25 13:06 Respiratory Rate 22 H 08/17/25 13:06 Blood Pressure 143/92 H 08/17/25 13:06 Pulse Oximetry 96 08/17/25 13:06 Oxygen Delivery Room Air 08/17/25 13:06 Temperature 36.6 C 08/17/25 13:06 Pulse Rate 77 08/17/25 14:00 Respiratory Rate 20 08/17/25 14:00 Blood Pressure 156/93 H 08/17/25 14:00 Pulse Oximetry 97 08/17/25 14:00 Oxygen Delivery Room Air 08/17/25 14:00 MDM - Fall Lab Data 08/17/25 13:36 08/17/25 13:36 Labs: Lab Results 08/17/25 08/17/25 Range/Units 13:36 14:45 WBC 15.8 H (4.8-10.8) K/mm3 RBC 4.65 (4.20-5.40) M/mm3 Hgb 12.6 (11.7-13.8) g/dL Hct 40.2 (35.0-42.0) % MCV 86.5 (78.0-102.0) fL MCH 27.1 (27.0-31.0) pg MCHC 31.3 L (32-36) g/dL RDW 15.6 H (11.6-14.4) % Plt Count 167 (150-420) K/mm3 MPV 9.3 (9.2-11.8) fl Immature Gran % (Auto) 0.8 H (0.0-0.0) % Neut % (Auto) 91.8 H (50.0-70.0) % Lymph % (Auto) 3.1 L (18.0-42.0) % [place] % (Auto) 4.1 (2.0-11.0) % Eos % (Auto) 0.0 L (1.0-6.0) % Baso % (Auto) 0.2 (0.0-1.0) % Lymph # (Auto) 0.49 L (1.10-4.50) K/mm3 [place] # (Auto) 0.64 (0.10-0.90) K/mm3 Eos # (Auto) 0.00 L (0.02-0.50) K/mm3 Baso # (Auto) 0.03 (0.00-0.10) K/mm3 Abs Immat Gran (auto) 0.13 H (0.00-0.00) K/mm3 Absolute Neuts (auto) 14.50 H (1.70-7.20) K/mm3 Absolute Nucleated RBC 0.00 (0.00-0.00) K/mm3 Nucleated RBC % 0.0 (0-0.0) % Sodium 136 L (137-145) mmol/L Potassium 3.9 (3.4-5.0) mmol/L Chloride 98 (98-107) mmol/L Carbon Dioxide 30 (22-30) mmol/L Anion Gap 8 (4-12) mmol/L BUN 18 H (7-17) mg/dL Creatinine 0.79 (0.7-1.0) mg/dL Estim Creat Clear Calc 90 ml/min Estimated GFR > 60 (59 - ) Glucose 170 H (65-110) mg/dL Calculated Osmolality 287 (285-295) mOsm/kg Lactic Acid 1.8 (0.7-2.0) mmol/L Calcium 8.4 (8.4-10.2) mg/dL Total Bilirubin 1.7 H (0.2-1.3) mg/dL AST 212 H (14-36) U/L ALT 62 H (6-35) U/L Alkaline Phosphatase 85 (38-126) U/L Total Creatine Kinase > 1600 H (30-135) U/L NT-Pro-B Natriuret Pep 8420 H (19.9-100) pg/mL Total Protein 7.5 (6.3-8.2) g/dL Albumin 3.9 (3.5-5.1) g/dL Influenza A (RT-PCR) Negative (Negative) Influenza B (RT-PCR) Negative (Negative) RSV (RT-PCR) Negative (Negative) SARS-CoV-2 RNA (RT-PCR) Negative (Negative) Group A Strep (PCR) Pending Discharge Plan Discharge Clinical Impression: Rhabdomyolysis, Acute UTI, Skin yeast infection CHF (congestive heart failure) Qualifiers: Heart failure type: unspecified Heart failure chronicity: unspecified Qualified Code(s): I50.9 - Heart failure, unspecified Patient Disposition: Acute Care Hospital Condition: Guarded Prognosis Patient Language: Micronesian Prescriptions: No Action ondansetron 4 mg Tablet,Disintegrating 4 mg PO Q6H PRN (Reason: Nausea And Vomiting) Qty: 20 0RF hydrocodone-acetaminophen 10-325 mg tablet 1 tablet PO Q4H PRN (Reason: severe pain (scale score 7-10)) Qty: 20 0RF hydroxyzine HCl 25 mg Tablet 50 mg PO Q8H PRN (Reason: Anxiety) Qty: 20 0RF cyclobenzaprine 10 mg tablet 10 mg PO TID PRN (Reason: muscle spasms) Qty: 90 0RF sertraline 100 mg tablet 100 mg PO BID Qty: 60 0RF trazodone 100 mg tablet 100 mg PO HS PRN (Reason: Insomnia) Qty: 30 0RF tolnaftate 1 % Powder 1 applic topical Q12HR Qty: 45 2RF Rx Instructions: fold in skin breast/abd and groin/under arms hydroxychloroquine 200 mg tablet 200 mg PO DAILY Qty: 30 0RF bupropion HCl 300 mg tablet extended release 24 hr 300 mg PO QAM Qty: 30 0RF acetaminophen 325 mg tablet 650 mg PO Q6H PRN (Reason: Pain (Scale Score 1-3)) insulin glargine [Lantus U-100 Insulin] 100 unit/mL Solution 10 unit subcut HS Qty: 10 0RF propranolol 80 mg capsule,extended release 24hr 80 mg PO DAILY albuterol sulfate 90 mcg/actuation HFA aerosol inhaler 2 puff INHALATION QID Rx Instructions: Every 6 hours Follow-up/Referrals: Juliann Hartman MD [Primary Care Provider, Internal Medicine] Time of Disposition: 15:48
[2025-08-17] MEDS: SODIUM CHLORIDE 0.9% IV 1,000 ML 150 ML IV CONT ×2 (15:01→21:08)
[2025-08-17] MEDS: MORPHINE SULFATE (*CRX) 2 MG/ML INJ IV PUSH (15:11)
[2025-08-17 15:14] LABS: Strep Group A RT-PCR NOT DETECTED (Negative)
--- OUTSIDE RECORDS SUMMARY | 2025-08-17 15:31 | XMS_ITS | Clinical Summary ---
Author Organization [facility] Address [facility] [place] [address] Care Team Providers Care Community Cultural Development Officer Name Role Phone Unavailable Primary Care Provider Unavailabl e Social History Tobacco Use Types Packs/Day Years Used Date Smoking Tobacco: Never Assessed Comments Unknown Sex and Gender Information Value Date Recorded Sex Assigned at Not on file Legal Sex Female 7:55 PM CDT Gender Identity Not on file Sexual Orientation Not on file Plan of Treatment Health Maintenance Due Date Last Done Comments Colorectal Cancer Screening Colonoscopy (10 Years) 1954 Hepatitis C 1972 DTaP, Tdap and Td Vaccines ( 1 - Tdap) 1973 Mammogram Screening 1994 Pneumococcal Vaccine: 50+ Ye ars (1 of 1 - PCV) 2004 Zoster Vaccines (1 of 2) 2004 Dexa Scan (General) 2019 COVID-19 Vaccine ( - 2024-2 6 season) 2025 Influenza Adult (#1) 2025 RSV Immunization or 60+ Years (1 - 1-dose 75+ series) 2029 Hepatitis A Vaccines Aged Out No long er eligible based on patient's age to complete this topic Meningococcal B Vaccine Aged Out No l onger eligible based on patient's age to complete this topic Meningococcal Vaccine Aged Out No maría giovanna eligible based on patient's age to complete this topic RSV Immunizations Under 20 Months Aged Out No longer eligible based on patient's age to complete this topic
[2025-08-17] MEDS: cefTRIAXone 1 GM in SODIUM CHLORIDE 0.9% IV 50 ML 100 ML IVPB (16:29)
--- NOTE | 2025-08-17 18:38 | ADMGEN ---
This patient, Yanni Kraus, was admitted to 2nd Floor Room 206-1. Patient/family oriented to hospital policies and general routines including ID bracelet, bed and alarms, visiting hours, pain management, procedures, bathroom and other care routines, personal items, smoking policy, room service/diet, and visiting hours. Information on how to activate the Rapid Response Team has been discussed. Patient/Family are encouraged to report perceived risks to care and to ask questions if they do not understand what they are told or what they should do.
[2025-08-17] MEDS: FUROSEMIDE INJ 40 MG/4 ML VIAL IV PUSH (19:32)
[2025-08-17] MEDS: TOLNAFTATE 1% POWDER 45 GM BTL 1 APPLIC TOPICAL (20:14)
[2025-08-17] MEDS: HYDROcodone/acetaminophen (*CRX) 5-325 MG TABLET 1 TAB PO (20:14)
[2025-08-18] VITALS: BP 138/68; PULSE 83; RESP 18; TEMP 36.6; O2SAT 92
[2025-08-18] MEDS: HYDROcodone/acetaminophen (*CRX) 5-325 MG TABLET 1 TAB PO ×4 (01:33→23:59)
[2025-08-18 05:51] LABS: Hematocrit 39.8 % (35.0-42.0); Hemoglobin 12.5 g/dL (11.7-13.8); Immature Granulocyte Percent A 0.7 % (0.0-0.0); Lymphocytes Absolute Auto 0.41 K/mm3 (1.10-4.50); Mean Corpuscular HGB Conc 31.4 g/dL (32-36); Mean Corpuscular Hemoglobin 27.4 pg (27.0-31.0); Mean Corpuscular Volume 87.3 fL (78.0-102.0); Nucleated Red Blood Cells Absolute Auto 0.00 K/mm3 (0.00-0.00); Nucleated Red Blood Cells Perc 0.0 % (0-0.0); Platelet Count Result 154 K/mm3 (150-420); Red Blood Count 4.56 M/mm3 (4.20-5.40); White Blood Count 12.8 K/mm3 (4.8-10.8)
[2025-08-18] MEDS: SODIUM CHLORIDE 0.9% IV 1,000 ML 150 ML IV CONT ×3 (05:58→20:03)
[2025-08-18 06:04] LABS: Alanine Aminotransferase 63 U/L (6-35); Albumin Level 3.7 g/dL (3.5-5.1); Alkaline Phosphatase 75 U/L (38-126); Anion Gap 6 mmol/L (4-12); Aspartate Amino Transferase 164 U/L (14-36); Bilirubin,Total 0.6 mg/dL (0.2-1.3); Blood Urea Nitrogen 22 mg/dL (7-17); Calcium 8.1 mg/dL (8.4-10.2); Carbon Dioxide 32 mmol/L (22-30); Chloride 101 mmol/L (98-107); Creatine Kinase > 1600 U/L (30-135); Estimated CRCL calculation 83 ml/min; Estimated Glomerular Filt Rate > 60; Glucose 167 mg/dL (65-110); Magnesium 2.1 mg/dL (1.6-2.3); Osmolality Calculated 295 mOsm/kg (285-295); Potassium 4.0 mmol/L (3.4-5.0); Sodium 139 mmol/L (137-145); Total Protein 7.2 g/dL (6.3-8.2)
[2025-08-18 06:06] LABS: Hemoglobin A1C 6.0 % (<5.7)
[2025-08-18 07:45] VITALS: BP 138/66; PULSE 77; RESP 18; TEMP 36.3; O2SAT 92
[2025-08-18] MEDS: FUROSEMIDE INJ 20 MG/2 ML VIAL 40 MG IV PUSH (08:23)
[2025-08-18] MEDS: ENOXAPARIN 40 MG/0.4 ML SYRINGE SUB-Q (08:24)
[2025-08-18] MEDS: buPROPion HCL XL (24 HR) 150 MG TABCR 300 MG PO (08:24)
[2025-08-18] MEDS: HYDROXYCHLOROQUINE SULFATE 200 MG TABLET PO (08:24)
[2025-08-18] MEDS: SERTRALINE HCL 50 MG TABLET 200 MG PO (08:24)
[2025-08-18] MEDS: TOLNAFTATE 1% POWDER 45 GM BTL 1 APPLIC TOPICAL ×2 (08:25→20:05)
[2025-08-18 08:30] VITALS: PULSE 77; RESP 18; O2SAT 92
[2025-08-18] MEDS: BENZOCAINE/MENTHOL (*BKC) LOZENGE 1 LOZENGE PO ×2 (11:12→17:57)
--- NOTE | 2025-08-18 14:07 | P.HP_ITS ---
H&P: HPI History of Present Illness Date/Time: 08/18/25 14:08 Chief Complaint: Fall/weakness Narrative: Patient is a female with a significant past medical history of COPD, obesity, STEVE, hypertension, gout, psoriasis, depression, former smoker who presents to the ED with complaints of a fall x 2. Patient stated she fell the night prior to arrival to the emergency department and laid on the ground for over 11 hours. Patient states she had fallen forward striking her face and head on able to get herself up but did denied losing any consciousness. Patient's 2nd fall was prior to arrival to the ED which her daughter requested her seek medical attention. Patient states she has had progressive worsening lower extremity weakness over the last week or 2. Patient does report she typically uses a walker at home for ambulation. Patient denies any fever, chills, nausea, vomiting, diarrhea, abdominal pain, chest pain, shortness a breath, dysuria. Endorses bilateral shoulder and bilateral hip pain as as lower back pain. In the ED: Patient's initial trauma workup was negative for any acute fractures. Labs were significant for leukocytosis of 15 and CPK greater than 16,000, and elevated liver enzymes. CXR did show vascular congestion likely secondary to CHF with elevated BNP 8420. Patient had received 1 dose of IV Rocephin in the emergency department for any concern for infectious process and was started IV fluids for rhabdomyolysis. 08/18/2025: Patient seen and assessed following day in no acute distress still with generalized weakness and mild to moderate pain all over. Patient denied any chest pain, shortness a breath, nausea, vomiting, abdominal pain. Did report she has had significant amount postnasal drip and had sinus pressure prior to admission likely going on for 6-7 days will start on some oral Augmentin for possible sinusitis. Review of Systems Review of Systems: All systems reviewed & are unremarkable except as noted in HPI and below PMFSH Past Medical History Medical History Gout PMR (polymyalgia rheumatica) Psoriasis Eczema Umbilical hernia Obstructive sleep apnea Morbid obesity with body mass index (BMI) greater than or equal to 50 ESR raised Fibromyalgia (~2006) Arthritis Asthma Depression Hypertension Surgical History Surgical History History of appendectomy History of cholecystectomy H/O section X2 History of total abdominal hysterectomy Family History Family History Mother Cancer Sibling Cerebrovascular accident Father Heart attack Social History Social History Social History: She lives alone in her own home. She has a daughter that lives in our way and a son that lives 2 hours away. She smoked less than a pack of cigarettes per day from the time she was a teenager until approximately 1999. She denies any excessive alcohol use or illicit substance use. She ambulates with a walker. Code status: Full code Surrogate decision maker: Vicki Padilla (daughter) Smoking packs per day: 2 Smoking cigarettes per day: 40.0 Years smoked: 33 Smoking pack-years: 66.00 Smoking status: Former smoker Tobacco type: cigarettes Second hand tobacco smoke exposure: No Smoking end date: 09/28/03 Alcohol intake: never Drinks per week: 1 Substance use: never Substance use type: does not use Do You Feel Safe in your Home?: Yes Lack of Transportation: No Lack of Food: Never True Current Housing: I Have Housing Concerned About Future Housing: No Difficulty Paying Gas/Electric Bills: No Difficulty Paying for Meds: No Currently Unemployed: No Education: High School Diploma/GED Difficulty w/ Childcare or Family Care: No Gender identity (if verbalized by the patient): Female Sexual Orientation (if Verbalized by the Patient): Straight or Heterosexual Spiritual care concerns: No Meds Home Medications and Allergies Home Medications ?Medication ?Instructions ?Recorded ?Confirmed ?Type albuterol sulfate 90 mcg/actuation 2 puff inhalation Q ID 11/01/23 08/17/25 History aerosol inhaler acetaminophen 325 mg tablet 650 mg PO Q6H PRN Pain (Sc priscilla 02/05/24 08/17/25 History Score 1-3) bupropion HCl 300 mg 24 hr tablet, 300 mg PO QAM #30 t abs 02/19/24 08/17/25 Rx extended release hydroxychloroquine 200 mg tablet 200 mg PO DAILY #30 t abs 02/19/24 08/17/25 Rx hydroxyzine HCl 25 mg tablet 50 mg (2 x 25 mg) PO Q8H PRN 02/19/24 08/17/25 Rx Anxiety #20 tabs tolnaftate 1 % topical powder 1 applic topical Q12HR # 45 grams 02/19/24 08/17/25 Rx allopurinol 300 mg tablet 300 mg PO DAILY 08/17/25 History lisinopril 20 2 tablet PO DAILY 08/17/25 1 10/17/24 History mg-hydrochlorothiazide 12.5 mg tablet sertraline 100 mg tablet 200 mg PO Q24H 08/17/2507/30 History trazodone 100 mg tablet 200 mg PO HS Insomnia 08/17/25 History Allergies Allergy/AdvReac Type Severity Reaction Status Date / Time Fish Containing Products Allergy Severe Anaphylaxis Verified 08/17/25 18:47 estrogens, conjugated Allergy Unknown Hives Verified 08/17/25 18:47 latex Allergy Rash Verified 08/17/25 18:47 Vital Signs Vital Signs - 24 hr 08/17/25 14:30 08/17/25 15:00 08/17/25 16:00 Temperature 97.7 F Pulse Rate 82 89 82 Respiratory Rate 20 18 18 Blood Pressure 133/68 149/79 H 131/85 Pulse Oximetry 96 96 97 Oxygen Delivery Room Air Room Air Room Air 08/17/25 18:22 08/17/25 18:25 08/17/25 19:44 Temperature 98 F Pulse Rate 92 Respiratory Rate 20 Blood Pressure 138/68 137/54 L Pulse Oximetry 91 90 Oxygen Delivery Room Air Room Air 08/17/25 20:00 08/18/25 00:00 08/18/25 07:45 Temperature 97.8 F 97.4 F L Pulse Rate 83 83 77 Respiratory Rate 20 18 18 Blood Pressure 138/68 138/66 Pulse Oximetry 93 92 92 Oxygen Delivery Room Air Room Air Room Air 08/18/25 08:30 Temperature Pulse Rate 77 Respiratory Rate 18 Blood Pressure Pulse Oximetry 92 Oxygen Delivery Room Air Exam Const: General: comfortable and no acute distress Eyes: Sclera: scleral abnormality left hemorrhage Other: Right periorbital ecchymosis Neck: Other: Increased neck circumference Resp: Effort & Inspection: normal respiratory effort Auscultation: wheezes scattered wheezes Cardio: Rate: regular rate Rhythm: regular rhythm Other: EKG sinus rhythm with right bundle branch block GI: GI Palp: Yes Soft to palpation Auscultation: normal bowel sounds Other: Large pannus, external hernia with intestinal contents Skin: Other: Skull region under skin folds, pressure to sacral area stage I, venous stasis bilateral extremity Neuro: Speech: normal speech Motor exam (neuro): 5/5 motor strength present throughout Sensory Exam: normal sensation Extrem: Other: Venous stasis bilateral extremities Psych: Mental Status: mental status grossly normal Affect: normal affect H&P: Results Labs Labs: Short CBC 08/18/25 Range/Units 05:26 WBC 12.8 H (4.8-10.8) K/mm3 Hgb 12.5 (11.7-13.8) g/dL Hct 39.8 (35.0-42.0) % Plt Count 154 (150-420) K/mm3 BMP 08/18/25 05:26 Sodium 139 Potassium 4.0 Chloride 101 Carbon Dioxide 32 H BUN 22 H Creatinine 0.80 Glucose 167 H Calcium 8.1 L Cardiac Enzymes 08/18/25 Range/Units 05:26 Total Creatine Kinase > 1600 H (30-135) U/L Liver Function 08/18/25 Range/Units 05:26 Total Bilirubin 0.6 (0.2-1.3) mg/dL AST 164 H (14-36) U/L ALT 63 H (6-35) U/L Alkaline Phosphatase 75 (38-126) U/L Albumin 3.7 (3.5-5.1) g/dL Urine 08/17/25 Range/Units 14:55 Urine Color Dark yellow (Yellow) Urine Appearance Clear (Clear) Urine pH 5.5 (5.0-8.0) Ur Specific Lucinda >= 1.030 H (1.010-1.020) Urine Protein 3+ H (Negative) Urine Glucose (UA) Trace H (Negative) Imaging Chest x-ray: Radiologist's impression: ITS Impressions Lumbar Spine X-Ray 08/17/25 14:20 Impression: No acute abnormality. Chest X-Ray 08/17/25 14:26 Impression: CHF Hip/Pelvis X-Ray 08/17/25 14:26 Impression: No acute fracture or malalignment. Shoulder X-Ray 08/17/25 14:26 Impression: No acute fracture or malalignment. Head CT 08/17/25 14:35 IMPRESSION: 1. Somewhat limited exam as above with no intracranial hemorrhage or large acute ischemic event. Assessment and Plan Assessment and plan (1) Rhabdomyolysis: Qualifiers: Rhabdomyolysis type: non-traumatic Qualified Code(s): M62.82 - Rhabdomyolysis Code(s): M62.82 - Rhabdomyolysis Status: Acute Assessment and Plan: Patient with falls x2 at home report lying for around 11 hours on the ground unable to get herself CPK on admission greater than 16,000 * Aggressive IV fluids will need to monitor closely for fluid overload * Trend CPK daily (2) Fall: Qualifiers: Encounter type: initial encounter Qualified Code(s): W19.XXXA - Unspecified fall, initial encounter Code(s): W19.XXXA - Unspecified fall, initial encounter Status: Acute Assessment and Plan: Patient with fall x 2 trauma workup was negative for any acute fractures * PT/OT likely need rehab (3) CHF (congestive heart failure): Qualifiers: Heart failure chronicity: unspecified Heart failure type: unspecified Qualified Code(s): I50.9 - Heart failure, unspecified Code(s): I50.9 - Heart failure, unspecified Status: Acute Assessment and Plan: Patient states she has never been diagnosed with CHF does have a history STEVE last echocardiogram in 2023 showed LVEF of 65-70% with mild aortic stenosis and mild TR. Patient came in with elevated BNP greater than 8500 and CXR consistent with CHF vascular congestion * Repeat echocardiogram * Will give daily Lasix fall while giving aggressive IV fluid resuscitation * Monitor daily weights * Strict I&Os * EKG sinus rhythm with right bundle-branch block (4) Transaminitis: Code(s): R74.01 - Elevation of levels of liver transaminase levels Status: Acute Assessment and Plan: Elevated liver enzymes POA * Continue IV fluids improving * Hepatitis panel * Liver panel * If worsens ultrasound (5) Hypertension: Code(s): I10 - Essential (primary) hypertension Status: Chronic Assessment and Plan: * Hold lisinopril/HCTZ * monitor BP per unit protocol * Hydralazine PRN systolic >160 (6) Type 2 diabetes mellitus: Qualifiers: Diabetes mellitus complication detail: with other skin complication Diabetes mellitus complication status: with skin complications Diabetes mellitus tank terminal gauger insulin use: with tank terminal gauger use Qualified Code(s): E11.628 - Type 2 diabetes mellitus with other skin complications; Z79.4 - terminal operations manager (current) use of insulin Code(s): E11.9 - Type 2 diabetes mellitus without complications Status: Chronic Assessment and Plan: HX of diabetes but was taken off her medications due to decreased A1c. Mild hyperglycemia on admission * A1c 6.0 * Patient and family to home on any medication at this time * Recommend A1c follow-up in 3 months (7) Depression: Code(s): F32.9 - Major depressive disorder, single episode, unspecified Status: Chronic Assessment and Plan: * continues Zoloft and Wellbutrin (8) PMR (polymyalgia rheumatica): Code(s): M35.3 - Polymyalgia rheumatica Status: Chronic Assessment and Plan: * continue hydroxychloroquine (9) GENEVIEVE (generalized anxiety disorder): Code(s): F41.1 - Generalized anxiety disorder Status: Chronic Assessment and Plan: * continue hydroxyzine 50 mg (10) Obstructive sleep apnea: Code(s): G47.33 - Obstructive sleep apnea (adult) (pediatric) Status: Chronic Assessment and Plan: * continue CPAP at night * albuterol rescue inhaler ordered p.r.n. * Duonebs PRN for wheezing (11) Morbid obesity with body mass index (BMI) greater than or equal to 50: Code(s): E66.01 - Morbid (severe) obesity due to excess calories Status: Chronic Assessment and Plan: * BMI 57.4, 142.4 kg * educated on healthy diet and exercise program * Encourage increasing activity (12) Skin yeast infection: Code(s): B37.2 - Candidiasis of skin and nail Status: Acute (13) Sinusitis: Code(s): J32.9 - Chronic sinusitis, unspecified Status: Acute Plan Code status: Full code per patient DVT prophylaxis: Lovenox Stress ulcer prophylaxis: NA PT/OT notes: PT/OT Disposition: Patient and unit for further treatment of rhabdomyolysis post fall and exacerbation of CHF. PT/OT pending for recommendations likely need rehab at discharge. Quality VTE Prophylaxis VTE prophylaxis: pharmacologic ordered -Patient's previous records reviewed on admission -ER notes reviewed in detail on admission -discussed all findings and current treatment plan with patient/Family/POA -Consultations reviewed for recommendations -Patient's disposition for safe discharge discussed with foster care case manager -radiology imaging, EKG and test results I have personally reviewed and interpreted unless otherwise specified Dictation performed by [employer] direct speech recognition software, therefore binder cutter hand variants and typographical errors may occur. Hospitalist MIPS Advance Care Plan I have confirmed that the patient's Advanced Care Plan is present, code status is documented, or surrogate decision maker is listed in patient medical record.: Yes Medication Reconciliation I have utilized all available resources to obtain, update and review the patients current medications (includes all prescriptions, OTC, herbals, cannabis, and nutritional supplements).: Yes The patient is not eligible for med reconciliation; the patient is in a emergent medical situation where delaying treatment would jeopardize the patients health.: No
[2025-08-18 15:00] VITALS: BMI 10.0
[2025-08-18 15:09] VITALS: BMI 10.0
--- NOTE | 2025-08-18 15:30 | ECHO_ITS ---
Patient Info Name: Yanni Kraus Age: 70 years : 1955 Gender: Female Ht: 64 in Wt: 350 lbs BSA: 2.79 m2 BP: 138 / 66 mmHg Technical Quality: Fair Exam Date: 08/18/2025 3:24 PM Patient Status: I Admit Date: 08/18/2025 Exam Type: CA echo dop color flow w con Complete two-dimensional, color flow and Doppler transthoracic echocardiogram is performed with contrast to opacify the left ventricle and to improve the deliniation of the left ventricle endocardial borders. Staff Referring Physician: Sam Rod MD Electronic Imaging System Operator: Jennifer Rodriguez Attending Provider: Sudarshan Orr MD Contrast/Agitated Saline Contrast/Ag. Saline: Definity Amount: 2.00 ml Summary 1. Definity contrast administered improved wall motion interpretation. 2. Left ventricular chamber dimension is moderately enlarged. 3. Left ventricular systolic function is normal, estimated at 55-60. 4. The left ventricular diastolic function is abnormal. 5. E/e' 13 is mildly elevated. 6. The aortic valve is not well visualized. Cannot determine number of aortic valve leaflets. 7. There is trace mitral valve regurgitation. 8. There is trace tricuspid valve regurgitation. 9. No pulmonary hypertension, estimated pulmonary arterial systolic pressure is 38 mmHg. Left Ventricle Left ventricular chamber dimension is moderately enlarged. Left ventricular systolic function is normal, estimated at 55-60. The left ventricular diastolic function is abnormal. Definity contrast administered improved wall motion interpretation. E/e' 13 is mildly elevated. Right Ventricle Right ventricular chamber dimension is normal. Right ventricular systolic function is normal and with normal TAPSE 1.9 cm. Left Atria Left atrial chamber dimension is normal. Right Atria Right atrial chamber dimension is normal. Aortic Valve The aortic valve is not well visualized. Cannot determine number of aortic valve leaflets. There is no aortic valve stenosis based on valve area and gradients. There is no aortic valve regurgitation. Pulmonic Valve There is no pulmonic regurgitation. Mitral Valve There is no mitral valve stenosis. There is trace mitral valve regurgitation. Tricuspid Valve There is trace tricuspid valve regurgitation. No pulmonary hypertension, estimated pulmonary arterial systolic pressure is 38 mmHg. Pericardium/Pleural There is no pericardial effusion. Inferior Vena Cava Normal inferior vena cava with >50% collapse upon inspiration consistent with normal right atrial pressure, 5 mmHg. Aorta The aortic root size at the sinus of Valsalva is normal. Left Ventricular Outflow Tract Name Value Normal LVOT 2D LVOT Diameter 2.0 cm LVOT Doppler LVOT Peak Velocity 142 cm/s LVOT Peak Gradient 8 mmHg LVOT Mean Gradient 4 mmHg LVOT VTI 27 cm LVOT VTI/AV VTI Ratio 0.6 LVOT Stroke Volume 88 ml LVOT CO 6.7 l/min LVOT CI 2.4 l/min/m2 Pulmonic Valve Name Value Normal RVOT Doppler RVOT Peak Velocity 102 cm/s RVOT Peak Gradient 4 mmHg PV Doppler PV Peak Velocity 135 cm/s PV Peak Gradient 7 mmHg Mitral Valve Name Value Normal MV Diastolic Function MV E Peak Velocity 134 cm/s MV A Peak Velocity 104 cm/s MV E/A 1.3 MV Decel Time (PW) 226 ms MV Annular TDI MV E/e' (Septal) 15.7 MV E/e' (Lateral) 12.1 MV E/e' (Average) 13.9 Tricuspid Valve Name Value Normal TV Regurgitation Doppler TR Peak Velocity 288 cm/s TR Peak Gradient 33 mmHg Estimated PAP/RSVP RA Pressure 5 mmHg <=5 PA Systolic Pressure 38 mmHg <36 RV Systolic Pressure 38 mmHg <36 Aortic Valve Name Value Normal AV Doppler AV Peak Velocity 203 cm/s AV Peak Gradient 16 mmHg AV Mean Gradient 8 mmHg AV VTI 42 cm AV Area (Cont Eq VTI) 2.1 cm2 >=3.0 AV Area (Cont Eq Srinivasan) 2.3 cm2 AV DI (Srinivasan) 0.70 AV Regurgitation 2D LVOT Area 3.3 cm2 Ventricles Name Value Normal LV Dimensions 2D/MM LVOT Diameter 2.0 cm LV Fractional Shortening/Ejection Fraction 2D/MM LV Diastolic Volume (4C MOD) 150 ml LV EF (4C MOD) 50 % LV Diastolic Volume (2C MOD) 142 ml LV EF (2C MOD) 59 % LV Diastolic Volume (BP MOD) 149 ml 46-106 LV Diastolic Volume Index (BP MOD) 53 ml/m2 29-61 LV Systolic Volume (BP MOD) 66 ml 14-42 LV Systolic Volume Index (BP MOD) 24 ml/m2 8-24 LV EF (BP MOD) 55 % 54-74 LV Diastolic Length (4C) 7.6 cm LV Systolic Length (4C) 6.7 cm LV Stroke Volume (4C MOD) 75 ml Atria Name Value Normal LA Dimensions LA Volume (4C A-L) 59 ml LA Volume (BP A-L) 70 ml RA Dimensions RA Systolic Major [place] Length (4C) 5.3 cm 2.2-2.8 RA Area (4C) 17.4 cm2 <=18.0 Report Signatures
[2025-08-18] MEDS: PERFLUTREN LIPID MICROSPHERES 1.5 ML VIAL DILUTED TO 10 ML TOTAL VOLUME IV PUSH (15:57)
--- NOTE | 2025-08-18 15:58 | IVDEFINITY ---
Prior to administration of IV Definity the patient was educated on the risks and benefits of the imaging enhancing agent including potential adverse side effects. The patient verbalized understanding. Allergies were verified. No exclusion criteria were identified and at least one of the following inclusion criteria were met: 1) physician request, 2) patient technically difficult to image (per the [place] [employer] guidelines of two or more segments not discernable within the apical view), or 3) questionable left ventricular function. ?
[2025-08-18 16:15] VITALS: BP 131/51; PULSE 75; RESP 18; TEMP 36.4; O2SAT 93
[2025-08-18] MEDS: ALBUTEROL SULFATE (*SP) INHALER 2 PUFF INHALATION ×2 (18:23→23:58)
--- NOTE | 2025-08-18 19:20 | PC.NURSE ---
ASSUMED CARE. PATIENT RESTING ON BED. PURE WICK IN PLACE. URINE NOTED IN TUBING AND CANISTER. PATIENT HAS HER CALL LIGHT. CURRENTLY DENIES ANY NEEDS.
[2025-08-18] MEDS: NYSTATIN 100,000 UNITS/ML SUSP 5 ML ORAL.SUSP PO (20:05)
[2025-08-19] VITALS (7 sets, daily range): BP systolic 120–142; BP diastolic 48–59; PULSE 79–86; RESP 16–22; TEMP 36.2–36.6; O2SAT 86–93
--- NOTE | 2025-08-19 00:05 | PC.NURSE ---
PATIENT DOES NOT WANT TO TURN. ENCOURAGED PATIENT TO READJUST HER POSITION IN THE BED. PATIENT SHIFTED HER WEIGHT TO HER LEFT SIDE. PATIENT HAS CALL LIGHT IN REACH.
[2025-08-19] MEDS: SODIUM CHLORIDE 0.9% IV 1,000 ML 150 ML IV CONT ×2 (02:07→08:50)
--- NOTE | 2025-08-19 04:12 | PC.NURSE ---
PATIENT CALLED OUT TO HAVE THE HEAD OF HER BED ADJUSTED. ASKED PATIENT IF THIS RN COULD CHECK IF SHE WAS DRY ON HER BED PAD. PATIENT ROLLED TO HER LEFT SIDE. CURRENTLY DRY. PUREWICK IN PLACE. PLACED PILLOW BEHIND PATIENTS BACK. CALL LIGHT IN REACH
[2025-08-19] MEDS: ALBUTEROL SULFATE (*SP) INHALER 2 PUFF INHALATION ×3 (05:54→18:16)
[2025-08-19 07:08] LABS: Hematocrit 36.5 % (35.0-42.0); Hemoglobin 11.1 g/dL (11.7-13.8); Immature Granulocyte Percent A 0.6 % (0.0-0.0); Lymphocytes Absolute Auto 1.40 K/mm3 (1.10-4.50); Mean Corpuscular HGB Conc 30.4 g/dL (32-36); Mean Corpuscular Hemoglobin 27.1 pg (27.0-31.0); Mean Corpuscular Volume 89.0 fL (78.0-102.0); Nucleated Red Blood Cells Absolute Auto 0.00 K/mm3 (0.00-0.00); Nucleated Red Blood Cells Perc 0.0 % (0-0.0); Platelet Count Result 171 K/mm3 (150-420); Red Blood Count 4.10 M/mm3 (4.20-5.40); White Blood Count 9.3 K/mm3 (4.8-10.8)
[2025-08-19 07:21] LABS: Alanine Aminotransferase 51 U/L (6-35); Albumin Level 3.2 g/dL (3.5-5.1); Alkaline Phosphatase 68 U/L (38-126); Anion Gap 6 mmol/L (4-12); Aspartate Amino Transferase 97 U/L (14-36); Bilirubin,Total 0.4 mg/dL (0.2-1.3); Blood Urea Nitrogen 24 mg/dL (7-17); Calcium 7.6 mg/dL (8.4-10.2); Carbon Dioxide 28 mmol/L (22-30); Chloride 104 mmol/L (98-107); Cholesterol 158 mg/dL (0-200); Creatine Kinase 1377 U/L (30-135); Estimated CRCL calculation 87 ml/min; Estimated Glomerular Filt Rate > 60; Glucose 126 mg/dL (65-110); HDL Direct 54 mg/dL; Magnesium 1.9 mg/dL (1.6-2.3); Osmolality Calculated 292 mOsm/kg (285-295); Potassium 3.4 mmol/L (3.4-5.0); Sodium 138 mmol/L (137-145); Total Protein 6.3 g/dL (6.3-8.2); Triglycerides 103 mg/dL (<150)
--- NOTE | 2025-08-19 09:01 | P.PNIM_ITS ---
Progress Note: A&P Assessment and Plan (1) Rhabdomyolysis: Qualifiers: Rhabdomyolysis type: non-traumatic Qualified Code(s): M62.82 - Rhabdomyolysis Code(s): M62.82 - Rhabdomyolysis Status: Acute Assessment and Plan: Patient with falls x2 at home report lying for around 11 hours on the ground un able to get herself CPK on admission greater than 16,000 * CPK improved less than 1500 will decrease IV fluids * encourage oral hydration * Trend CPK daily (2) Acute diastolic (congestive) heart failure: Code(s): I50.31 - Acute diastolic (congestive) heart failure Status: Acute Assessment and Plan: Patient states she has never been diagnosed with CHF does have a history STEVE last echocardiogram in 2023 showed LVEF of 65-70% with mild aortic stenosis and mild TR. Patient came in with elevated BNP greater than 8500 and CXR consistent with CHF vascular congestion * Repeat echocardiogram: diastolic heart failure with an EF of 50-55% * Will give daily Lasix while giving aggressive IV fluid resuscitation plan to transition to Lasix 20 mg daily * patient was started on losartan 12.5 daily, Coreg 3.125 b.i.d., and Jardiance and 10 mg daily * will discontinue patient's lisinopril /hydrochlorothiazide that she was taking home * Monitor daily weights * Strict I&Os * EKG sinus rhythm with right bundle-branch block (3) Fall: Qualifiers: Encounter type: initial encounter Qualified Code(s): W19.XXXA - Unspecified fall, initial encounter Code(s): W19.XXXA - Unspecified fall, initial encounter Status: Acute Assessment and Plan: Patient with fall x 2 trauma workup was negative for any acute fractures * PT/OT likely need rehab * pain management with scheduled Oxy scheduled t.i.d. p.o. Percocet as needed for severe pain IV morphine for breakthrough pain (4) Transaminitis: Code(s): R74.01 - Elevation of levels of liver transaminase levels Status: Acute Assessment and Plan: Elevated liver enzymes POA * Continue IV fluids improving * Hepatitis panel * Liver panel * If worsens ultrasound (5) Hypertension: Code(s): I10 - Essential (primary) hypertension Status: Chronic Assessment and Plan: * discontinued lisinopril/HCTZ * patient started on losartan 12.5 mg daily and Coreg 3.125 b.i.d. * monitor BP per unit protocol * Hydralazine PRN systolic >160 (6) Type 2 diabetes mellitus: Qualifiers: Diabetes mellitus complication detail: with other skin complication Diabetes mellitus complication status: with skin complications Diabetes mellitus chcf insulin use: with chcf use Qualified Code(s): E11.628 - Type 2 diabetes mellitus with other skin complications; Z79.4 - FDC (current) use of insulin Code(s): E11.9 - Type 2 diabetes mellitus without complications Status: Chronic Assessment and Plan: HX of diabetes but was taken off her medications due to decreased A1c. Mild hyperglycemia on admission * A1c 6.0 * Patient and family to home on any medication at this time * Recommend A1c follow-up in 3 months * patient started Jardiance (7) Depression: Code(s): F32.9 - Major depressive disorder, single episode, unspecified Status: Chronic Assessment and Plan: * continues Zoloft and Wellbutrin (8) PMR (polymyalgia rheumatica): Code(s): M35.3 - Polymyalgia rheumatica Status: Chronic Assessment and Plan: * continue hydroxychloroquine (9) Obstructive sleep apnea: Code(s): G47.33 - Obstructive sleep apnea (adult) (pediatric) Status: Chronic Assessment and Plan: * continue CPAP at night * albuterol rescue inhaler ordered p.r.n. * Harpal PRN for wheezing (10) Obesity hypoventilation syndrome: Code(s): E66.2 - Morbid (severe) obesity with alveolar hypoventilation Status: Acute Assessment and Plan: SEE Above #9 (11) Morbid obesity with body mass index (BMI) greater than or equal to 50: Code(s): E66.01 - Morbid (severe) obesity due to excess calories Status: Chronic Assessment and Plan: * BMI 57.4, 142.4 kg * educated on healthy diet and exercise program * Encourage increasing activity (12) GENEVIEVE (generalized anxiety disorder): Code(s): F41.1 - Generalized anxiety disorder Status: Chronic Assessment and Plan: * continue hydroxyzine 50 mg (13) Skin yeast infection: Code(s): B37.2 - Candidiasis of skin and nail Status: Acute Assessment and Plan: * intra dry to skin folds (14) Sinusitis: Code(s): J32.9 - Chronic sinusitis, unspecified Status: Acute Assessment and Plan: patient had been reporting postnasal drip and sinus pressure for over 6-7 days, sore throat * started on Augmentin p.o. for sinusitis Plan Code status: Full code per patient DVT prophylaxis: Lovenox Stress ulcer prophylaxis: NA PT/OT notes: PT/OT Disposition: Patient and unit for further treatment of rhabdomyolysis post fall and exacerbation of new diastolic HF. PT/OT pending for recommendations likely need rehab at discharge. Time Spent With Patient Time with patient: 25 - 35 minutes Subjective Date/time seen: 08/19/25 09:01 Interval history: Patient is a pleasant 70-year-old female who was admitted after 2 falls at home in immobilization for 11 hours resulting in rhabdomyolysis was also found to be in acute exacerbation of new onset heart failure. 08/19/2025: Patient still reporting moderate to severe pain to shoulders, back and hips from fall. Patient also reporting SOB and sore throat. Spoke with patient regarding her Echo and need to wear her CPAP at night. Review of Systems Review of Systems: All systems reviewed & are unremarkable except as noted in HPI and below Exam Const: General: comfortable and no acute distress Eyes: Sclera: scleral abnormality left hemorrhage Other: Right periorbital ecchymosis Neck: Other: Increased neck circumference Resp: Effort & Inspection: normal respiratory effort Auscultation: wheezes scattered wheezes Cardio: Rate: regular rate Rhythm: regular rhythm Other: EKG sinus rhythm with right bundle branch block GI: Auscultation: normal bowel sounds Other: Large pannus, external hernia with intestinal contents Skin: Other: Skull region under skin folds, pressure to sacral area stage I, venous stasis bilateral extremity Neuro: Speech: normal speech Motor exam (neuro): 5/5 motor strength present throughout Sensory Exam: normal sensation Extrem: Other: Venous stasis bilateral extremities Psych: Mental Status: mental status grossly normal Affect: normal affect Objective Data Vital Signs Vital Signs: Vital Signs - 24 hr 08/18/25 16:15 08/19/25 00:00 Temperature 97.6 F 97.7 F Pulse Rate 75 83 Respiratory Rate 18 16 Blood Pressure 131/51 L 142/59 H Pulse Oximetry 93 93 Oxygen Delivery Room Air Room Air Intake/Output Intake/Output: Intake & Output 08/16/25 08/17/25 08/18/25 08/19/25 23:59 23:59 23:59 23:59 Intake Total 1410 5160 2110 Output Total 4150 1750 Balance 1410 1010 360 Meds/Results Medications: Active Medications Generic Name Dose Route Start Last Admin Trade Name Freq PRN Reason Stop Dose Admin Acetaminophen 650 mg 08/17/25 18:19 Acetaminophen 325 Mg Tablet PO Q6H PRN Pain (Scale Score 1-3) Hydrocodone Bitart/Acetaminophen 1 tab 08/17/25 18:20 08/18/25 23:59 Hydrocodone/Acetaminophen (*Crx) 5-325 Mg Tablet PO 1 tab Q4H PRN Administration Moderate Pain (4-6) Albuterol 2 puff 08/18/25 18:35 08/19/25 05:54 Albuterol Sulfate (*Sp) Inhaler INHALATION 2 puff Q6HRT LIA Administration Albuterol/Ipratropium 3 ml 08/18/25 10:15 Ipratropium 0.5 Mg/Albuterol Sulfate 2.5 Mg (Base) Ampul.Neb 3 Ml INHALATION Q6HRT PRN Wheezing Allopurinol 300 mg 08/18/25 09:00 08/18/25 08:24 Allopurinol 300 Mg Tablet PO 300 mg DAILY LIA Administration Amoxicillin/Clavulanate Potassium 1 tablet 08/18/25 21:00 08/18/25 20:05 Amoxicillin/Clavulanate K 875-125 Mg Tab PO 1 tablet Q12HR LIA Administration Benzocaine 1 lozenge 08/18/25 10:15 08/18/25 17:57 Benzocaine/Menthol (*Bkc) Lozenge PO 1 lozenge PRN PRN Administration Sore Throat Bupropion HCl 300 mg 08/18/25 09:00 08/18/25 08:24 Bupropion Hcl Xl (24 Hr) 150 Mg Tabcr PO 300 mg QAM LIA Administration Enoxaparin Sodium 40 mg 08/18/25 09:00 08/18/25 08:24 Enoxaparin 40 Mg/0.4 Ml Syringe SUB-Q 40 mg DAILY LIA Administration Furosemide 40 mg 08/18/25 09:00 08/18/25 08:23 Furosemide Inj 20 Mg/2 Ml Vial IV PUSH 40 mg DAILY LIA Administration Hydralazine HCl 20 mg 08/17/25 18:25 Hydralazine Hcl 20 Mg/Ml Vial IV PUSH Q6HR PRN Hypertension Hydroxychloroquine Sulfate 200 mg 08/18/25 09:00 08/18/25 08:24 Hydroxychloroquine Sulfate 200 Mg Tablet PO 200 mg DAILY LIA Administration Hydroxyzine HCl 50 mg 08/17/25 18:19 08/17/25 20:14 Hydroxyzine Hcl 25 Mg Tablet PO 50 mg Q8H PRN Administration Anxiety Sodium Chloride 1,000 mls @ 75 mls/hr 08/17/25 18:20 08/19/25 08:50 Normal Saline Iv IV CONT 150 mls/hr .[id number] LIA Administration Morphine Sulfate 2 mg 08/17/25 18:20 Morphine Sulfate (*Crx) 4 Mg/Ml Inj IV PUSH Q4H PRN Pain Rated 7-10 Naloxone HCl 0.1 mg 08/17/25 18:20 Naloxone Hcl 0.4 Mg/Ml Vial IV PUSH Q2M PRN Opiate Reversal Nystatin 5 ml 08/18/25 21:00 08/18/25 20:05 Nystatin 100,000 Units/Ml Susp 5 Ml Oral.Susp PO 5 ml QID LIA Administration Ondansetron HCl 4 mg 08/17/25 18:20 Ondansetron Inj 4 Mg/2 Ml Vial IV PUSH Q6H PRN Nausea And Vomiting Sertraline HCl 200 mg 08/18/25 09:00 08/18/25 08:24 Sertraline Hcl 50 Mg Tablet PO 200 mg Q24H LIA Administration Tolnaftate 1 applic 08/17/25 21:00 08/18/25 20:05 Tolnaftate 1% Powder 45 Gm Btl TOPICAL 1 applic Q12HR LIA Administration Trazodone HCl 200 mg 08/17/25 21:00 08/18/25 20:05 Trazodone Hcl 50 Mg Tablet PO 200 mg HS LIA Administration Radiology Results: ITS Impressions Lumbar Spine X-Ray 08/17/25 14:20 Impression: No acute abnormality. Chest X-Ray 08/17/25 14:26 Impression: CHF Hip/Pelvis X-Ray 08/17/25 14:26 Impression: No acute fracture or malalignment. Shoulder X-Ray 08/17/25 14:26 Impression: No acute fracture or malalignment. Head CT 08/17/25 14:35 IMPRESSION: 1. Somewhat limited exam as above with no intracranial hemorrhage or large acute ischemic event. Labs Labs: Laboratory Results - last 24 hr 08/19/25 07:02 WBC 9.3 RBC 4.10 L Hgb 11.1 L Hct 36.5 MCV 89.0 MCH 27.1 MCHC 30.4 L RDW 15.8 H Plt Count 171 MPV 9.2 Immature Gran % (Auto) 0.6 H Neut % (Auto) 75.3 H Lymph % (Auto) 15.0 L [place] % (Auto) 6.7 Eos % (Auto) 2.1 Baso % (Auto) 0.3 Lymph # (Auto) 1.40 [place] # (Auto) 0.63 Eos # (Auto) 0.20 Baso # (Auto) 0.03 Abs Immat Gran (auto) 0.06 H Absolute Neuts (auto) 7.02 Absolute Nucleated RBC 0.00 Nucleated RBC % 0.0 Sodium 138 Potassium 3.4 Chloride 104 Carbon Dioxide 28 Anion Gap 6 BUN 24 H Creatinine 0.76 Estim Creat Clear Calc 87 Estimated GFR > 60 Glucose 126 H Calculated Osmolality 292 Calcium 7.6 L Magnesium 1.9 Total Bilirubin 0.4 AST 97 H ALT 51 H Alkaline Phosphatase 68 Total Creatine Kinase 1377 H Total Protein 6.3 Albumin 3.2 L Triglycerides 103 Cholesterol 158 LDL Cholesterol, Calc 83 HDL Direct 54 Quality VTE Prophylaxis VTE prophylaxis: pharmacologic ordered -Patient's previous records reviewed on admission -ER notes reviewed in detail on admission -discussed all findings and current treatment plan with patient/Family/POA -Consultations reviewed for recommendations -Patient's disposition for safe discharge discussed with case management assistant -radiology imaging, EKG and test results I have personally reviewed and interpreted unless otherwise specified Dictation performed by [employer] direct speech recognition software, therefore invasive manager variants and typographical errors may occur. Hospitalist MIPS Advance Care Plan I have confirmed that the patient's Advanced Care Plan is present, code status is documented, or surrogate decision maker is listed in patient medical record.: Yes Medication Reconciliation I have utilized all available resources to obtain, update and review the patient s current medications (includes all prescriptions, OTC, herbals, cannabis, and nutritional supplements).: Yes The patient is not eligible for med reconciliation; the patient is in a emergent medical situation where delaying treatment would jeopardize the patients health.: No
[2025-08-19] MEDS: SERTRALINE HCL 50 MG TABLET 200 MG PO (09:53)
[2025-08-19] MEDS: buPROPion HCL XL (24 HR) 150 MG TABCR 300 MG PO (09:53)
[2025-08-19] MEDS: FUROSEMIDE INJ 20 MG/2 ML VIAL 40 MG IV PUSH (09:54)
[2025-08-19] MEDS: TOLNAFTATE 1% POWDER 45 GM BTL 1 APPLIC TOPICAL ×2 (09:54→20:35)
[2025-08-19] MEDS: NYSTATIN 100,000 UNITS/ML SUSP 5 ML ORAL.SUSP PO ×4 (09:54→20:33)
[2025-08-19] MEDS: HYDROXYCHLOROQUINE SULFATE 200 MG TABLET PO (09:54)
[2025-08-19] MEDS: ENOXAPARIN 40 MG/0.4 ML SYRINGE SUB-Q (09:54)
[2025-08-19] MEDS: LOSARTAN POTASSIUM 12.5 MG TABLET PO (09:57)
[2025-08-19] MEDS: EMPAGLIFLOZIN 10 MG TABLET PO (09:57)
--- NOTE | 2025-08-19 12:14 | PCRCNOTE ---
Respiratory Therapy Note Pt placed on V30 per provider order. Pt tolerated well with test trial (cpap ordered for sleep only). Pt requires autopap of 8cwp to 20cwp with an o2 bleed in of 3l/m to keep Spo2 levels above 90%. Requested telemetry with cont. o2 monitoring to safely monitor patient and appreciate any changes needed to settings as patient has not worn her home unit in quite some time and does not remember her settings. Pt SPo2 93% on above settings. Nursing staff and providers updated on progress and staff will monitor closely.
[2025-08-19] MEDS: oxyCODONE HCL (*CRX) 5 MG TAB IR PO ×2 (13:57→20:34)
[2025-08-19] MEDS: oxyCODONE/ACETAMINOPHEN (*CRX) 10-325 MG TABLET 1 TAB PO (18:16)
[2025-08-19] MEDS: SODIUM CHLORIDE 0.9% IV 1,000 ML 75 ML IV CONT (20:32)
[2025-08-20] VITALS (7 sets, daily range): BP systolic 109–120; BP diastolic 46–57; PULSE 74–84; RESP 18–20; TEMP 36.7–37.1; O2SAT 90–94; BMI 10.0
[2025-08-20] MEDS: ALBUTEROL SULFATE (*SP) INHALER 2 PUFF INHALATION ×4 (00:43→18:31)
[2025-08-20] MEDS: oxyCODONE HCL (*CRX) 5 MG TAB IR PO ×3 (05:45→22:13)
[2025-08-20 05:53] LABS: Hematocrit 39.0 % (35.0-42.0); Hemoglobin 11.7 g/dL (11.7-13.8); Immature Granulocyte Percent A 1.3 % (0.0-0.0); Lymphocytes Absolute Auto 1.41 K/mm3 (1.10-4.50); Mean Corpuscular HGB Conc 30.0 g/dL (32-36); Mean Corpuscular Hemoglobin 27.0 pg (27.0-31.0); Mean Corpuscular Volume 89.9 fL (78.0-102.0); Nucleated Red Blood Cells Absolute Auto 0.00 K/mm3 (0.00-0.00); Nucleated Red Blood Cells Perc 0.0 % (0-0.0); Platelet Count Result 194 K/mm3 (150-420); Red Blood Count 4.34 M/mm3 (4.20-5.40); White Blood Count 7.6 K/mm3 (4.8-10.8)
[2025-08-20 06:14] LABS: Alanine Aminotransferase 49 U/L (6-35); Albumin Level 3.4 g/dL (3.5-5.1); Alkaline Phosphatase 67 U/L (38-126); Anion Gap 7 mmol/L (4-12); Aspartate Amino Transferase 78 U/L (14-36); Bilirubin,Total 0.4 mg/dL (0.2-1.3); Blood Urea Nitrogen 22 mg/dL (7-17); Calcium 7.7 mg/dL (8.4-10.2); Carbon Dioxide 30 mmol/L (22-30); Chloride 104 mmol/L (98-107); Estimated CRCL calculation 83 ml/min; Estimated Glomerular Filt Rate > 60; Glucose 110 mg/dL (65-110); Magnesium 2.1 mg/dL (1.6-2.3); Osmolality Calculated 296 mOsm/kg (285-295); Potassium 3.6 mmol/L (3.4-5.0); Sodium 141 mmol/L (137-145); Total Protein 6.6 g/dL (6.3-8.2)
[2025-08-20] MEDS: oxyCODONE/ACETAMINOPHEN (*CRX) 10-325 MG TABLET 1 TAB PO ×2 (06:35→12:16)
[2025-08-20] MEDS: TOLNAFTATE 1% POWDER 45 GM BTL 1 APPLIC TOPICAL ×2 (09:00→20:24)
[2025-08-20] MEDS: ENOXAPARIN 40 MG/0.4 ML SYRINGE SUB-Q (09:00)
[2025-08-20] MEDS: NYSTATIN 100,000 UNITS/ML SUSP 5 ML ORAL.SUSP PO ×4 (09:36→20:22)
[2025-08-20] MEDS: FLUCONAZOLE 200 MG/NACL 100 ML 200 MG/100 ML BAG 100 MG IVPB (09:36)
[2025-08-20] MEDS: HYDROXYCHLOROQUINE SULFATE 200 MG TABLET PO (09:38)
[2025-08-20] MEDS: LOSARTAN POTASSIUM 12.5 MG TABLET PO (09:38)
[2025-08-20] MEDS: EMPAGLIFLOZIN 10 MG TABLET PO (09:38)
[2025-08-20] MEDS: buPROPion HCL XL (24 HR) 150 MG TABCR 300 MG PO (09:38)
[2025-08-20] MEDS: FUROSEMIDE INJ 20 MG/2 ML VIAL 40 MG IV PUSH (09:38)
[2025-08-20] MEDS: SERTRALINE HCL 50 MG TABLET 200 MG PO (09:38)
--- NOTE | 2025-08-20 10:00 | P.PNIM_ITS ---
Progress Note: A&P Assessment and Plan (1) Rhabdomyolysis: Qualifiers: Rhabdomyolysis type: non-traumatic Qualified Code(s): M62.82 - Rhabdomyolysis Code(s): M62.82 - Rhabdomyolysis Status: Acute Assessment and Plan: Patient with falls x2 at home report lying for around 11 hours on the ground un able to get herself CPK on admission greater than 16,000 * CPK improved D/C fluids * encourage oral hydration * Trend CPK daily (2) Acute diastolic (congestive) heart failure: Code(s): I50.31 - Acute diastolic (congestive) heart failure Status: Acute Assessment and Plan: Patient states she has never been diagnosed with CHF does have a history STEVE last echocardiogram in 2023 showed LVEF of 65-70% with mild aortic stenosis and mild TR. Patient came in with elevated BNP greater than 8500 and CXR consistent with CHF vascular congestion * Repeat echocardiogram: diastolic heart failure with an EF of 50-55% * Transition to PO Lasix 20mg starting tomorrow * patient was started on losartan 12.5 daily, Coreg 3.125 b.i.d., and Jardiance and 10 mg daily * will discontinue patient's lisinopril /hydrochlorothiazide that she was taking home * Monitor daily weights * Strict I&Os * EKG sinus rhythm with right bundle-branch block (3) Fall: Qualifiers: Encounter type: initial encounter Qualified Code(s): W19.XXXA - Unspecified fall, initial encounter Code(s): W19.XXXA - Unspecified fall, initial encounter Status: Acute Assessment and Plan: Patient with fall x 2 trauma workup was negative for any acute fractures * PT/OT likely need rehab * pain management with scheduled Oxy scheduled t.i.d. p.o. Percocet as needed for severe pain IV morphine for breakthrough pain (4) Transaminitis: Code(s): R74.01 - Elevation of levels of liver transaminase levels Status: Acute Assessment and Plan: Elevated liver enzymes POA * Continue IV fluids improving * Hepatitis panel * Liver panel * If worsens ultrasound (5) Hypertension: Code(s): I10 - Essential (primary) hypertension Status: Chronic Assessment and Plan: * discontinued lisinopril/HCTZ * patient started on losartan 12.5 mg daily and Coreg 3.125 b.i.d. * monitor BP per unit protocol * Hydralazine PRN systolic >160 L (6) Type 2 diabetes mellitus: Qualifiers: Diabetes mellitus complication detail: with other skin complication Diabetes mellitus complication status: with skin complications Diabetes mellitus termite exterminator insulin use: with shelter use Qualified Code(s): E11.628 - Type 2 diabetes mellitus with other skin complications; Z79.4 - tank terminal gauger (current) use of insulin Code(s): E11.9 - Type 2 diabetes mellitus without complications Status: Chronic Assessment and Plan: HX of diabetes but was taken off her medications due to decreased A1c. Mild hyperglycemia on admission * A1c 6.0 * Patient and family to home on any medication at this time * Recommend A1c follow-up in 3 months * patient started Jardiance (7) Depression: Code(s): F32.9 - Major depressive disorder, single episode, unspecified Status: Chronic Assessment and Plan: * continues Zoloft and Wellbutrin (8) PMR (polymyalgia rheumatica): Code(s): M35.3 - Polymyalgia rheumatica Status: Chronic Assessment and Plan: * continue hydroxychloroquine (9) Obstructive sleep apnea: Code(s): G47.33 - Obstructive sleep apnea (adult) (pediatric) Status: Chronic Assessment and Plan: * continue CPAP at night * albuterol rescue inhaler ordered p.r.n. * Harpal PRN for wheezing (10) Obesity hypoventilation syndrome: Code(s): E66.2 - Morbid (severe) obesity with alveolar hypoventilation Status: Acute Assessment and Plan: SEE Above #9 (11) Morbid obesity with body mass index (BMI) greater than or equal to 50: Code(s): E66.01 - Morbid (severe) obesity due to excess calories Status: Chronic Assessment and Plan: * BMI 57.4, 142.4 kg * educated on healthy diet and exercise program * Encourage increasing activity (12) GENEVIEVE (generalized anxiety disorder): Code(s): F41.1 - Generalized anxiety disorder Status: Chronic Assessment and Plan: * continue hydroxyzine 50 mg (13) Skin yeast infection: Code(s): B37.2 - Candidiasis of skin and nail Status: Acute Assessment and Plan: * intra dry to skin folds (14) Sinusitis: Code(s): J32.9 - Chronic sinusitis, unspecified Status: Acute Assessment and Plan: patient had been reporting postnasal drip and sinus pressure for over 6-7 days, sore throat * started on Augmentin p.o. for sinusitis (15) Candidiasis: Code(s): B37.9 - Candidiasis, unspecified Status: Acute Assessment and Plan: Noted oropharyngeal and skin * IV Diflucan 200 mg daily Plan Code status: Full code per patient DVT prophylaxis: Lovenox Stress ulcer prophylaxis: NA PT/OT notes: PT/OT Disposition: Patient and unit for further treatment of rhabdomyolysis post fall and exacerbation of new diastolic HF. PT/OT pending for recommendations likely need rehab at discharge. Time Spent With Patient Time with patient: 15 - 25 minutes Subjective Date/time seen: 08/20/25 10:00 Interval history: Patient is a pleasant 70-year-old female who was admitted after 2 falls at [facility] in immobilization for 11 hours resulting in rhabdomyolysis was also found to be in acute exacerbation of new onset heart failure. 08/20/2025: Patient reports pain is better controlled today and she is wearing the CPAP intermittently. Patient still with some mild shortness of breath and wheezing, denies CP N/V, sore throat with mild improvement. Review of Systems Review of Systems: All systems reviewed & are unremarkable except as noted in HPI and below Exam Const: General: comfortable and no acute distress Eyes: Sclera: scleral abnormality left hemorrhage Other: Right periorbital ecchymosis Neck: Other: Increased neck circumference Resp: Effort & Inspection: normal respiratory effort Auscultation: wheezes scattered wheezes Cardio: Rate: regular rate Rhythm: regular rhythm Other: EKG sinus rhythm with right bundle branch block GI: Auscultation: normal bowel sounds Other: Large pannus, external hernia with intestinal contents Skin: Other: Skull region under skin folds, pressure to sacral area stage I, venous stasis bilateral extremity Neuro: Speech: normal speech Motor exam (neuro): 5/5 motor strength present throughout Sensory Exam: normal sensation Extrem: Other: Venous stasis bilateral extremities Psych: Mental Status: mental status grossly normal Affect: normal affect Objective Data Vital Signs Vital Signs: Vital Signs - 24 hr 08/19/25 11:30 08/19/25 11:30 08/19/25 16:00 Temperature 97.9 F Pulse Rate 81 81 80 Respiratory Rate 22 H 19 20 Blood Pressure 120/50 L Pulse Oximetry 86 L 93 91 Oxygen Delivery BiPAP Autopap Room Air Fraction of Inspired Oxygen 0.21 08/19/25 20:00 08/19/25 20:34 08/20/25 00:00 Temperature 98.4 F Pulse Rate 79 79 79 Respiratory Rate 18 18 Blood Pressure 120/46 L Pulse Oximetry 91 90 Oxygen Delivery Room Air Room Air Fraction of Inspired Oxygen 0.21 08/20/25 08:00 08/20/25 09:38 Temperature 98.8 F Pulse Rate 84 84 Respiratory Rate 20 Blood Pressure 109/49 L Pulse Oximetry 93 Oxygen Delivery Room Air Fraction of Inspired Oxygen Intake/Output Intake/Output: Intake & Output 08/17/25 08/18/25 08/19/25 08/20/25 23:59 23:59 23:59 23:59 Intake Total 1410 5160 5775 300 Output Total 4150 4250 400 Balance 1410 1010 1525 -100 Meds/Results Medications: Active Medications Generic Name Dose Route Start Last Admin Trade Name Freq PRN Reason Stop Dose Admin Acetaminophen 650 mg 08/17/25 18:19 Acetaminophen 325 Mg Tablet PO Q6H PRN Pain (Scale Score 1-3) Albuterol 2 puff 08/18/25 18:35 08/20/25 05:45 Albuterol Sulfate (*Sp) Inhaler INHALATION 2 puff Q6HRT LIA Administration Albuterol/Ipratropium 3 ml 08/18/25 10:15 Ipratropium 0.5 Mg/Albuterol Sulfate 2.5 Mg (Base) Ampul.Neb 3 Ml INHALATION Q6HRT PRN Wheezing Allopurinol 300 mg 08/18/25 09:00 08/20/25 09:38 Allopurinol 300 Mg Tablet PO 300 mg DAILY LIA Administration Amoxicillin/Clavulanate Potassium 1 tablet 08/18/25 21:00 08/20/25 09:38 Amoxicillin/Clavulanate K 875-125 Mg Tab PO 1 tablet Q12HR LIA Administration Benzocaine 1 lozenge 08/18/25 10:15 08/18/25 17:57 Benzocaine/Menthol (*Bkc) Lozenge PO 1 lozenge PRN PRN Administration Sore Throat Bupropion HCl 300 mg 08/18/25 09:00 08/20/25 09:38 Bupropion Hcl Xl (24 Hr) 150 Mg Tabcr PO 300 mg QAM LIA Administration Carvedilol 3.125 mg 08/19/25 09:10 08/20/25 09:38 Carvedilol 3.125 Mg Tablet PO 3.125 mg Q12HR LIA Administration Empagliflozin 10 mg 08/19/25 09:10 08/20/25 09:38 Empagliflozin 10 Mg Tablet PO 10 mg DAILY LIA Administration Enoxaparin Sodium 40 mg 08/18/25 09:00 08/19/25 09:54 Enoxaparin 40 Mg/0.4 Ml Syringe SUB-Q 40 mg DAILY LIA Administration Furosemide 40 mg 08/18/25 09:00 08/20/25 09:38 Furosemide Inj 20 Mg/2 Ml Vial IV PUSH 40 mg DAILY LIA Administration Hydralazine HCl 20 mg 08/17/25 18:25 Hydralazine Hcl 20 Mg/Ml Vial IV PUSH Q6HR PRN Hypertension Hydroxychloroquine Sulfate 200 mg 08/18/25 09:00 08/20/25 09:38 Hydroxychloroquine Sulfate 200 Mg Tablet PO 200 mg DAILY LIA Administration Hydroxyzine HCl 50 mg 08/17/25 18:19 08/19/25 20:34 Hydroxyzine Hcl 25 Mg Tablet PO 50 mg Q8H PRN Administration Anxiety Fluconazole 200 mg in 100 mls @ 100 mls/hr 08/20/25 09:00 08/20/25 09:36 Diflucan 200 Mg/Nacl 100 Ml IVPB 100 mls/hr DAILY LIA Administration Losartan Potassium 12.5 mg 08/19/25 09:20 08/20/25 09:38 Losartan Potassium 12.5 Mg Tablet PO 12.5 mg DAILY LIA Administration Morphine Sulfate 2 mg 08/17/25 18:20 Morphine Sulfate (*Crx) 4 Mg/Ml Inj IV PUSH Q4H PRN Pain Rated 7-10 Naloxone HCl 0.1 mg 08/17/25 18:20 Naloxone Hcl 0.4 Mg/Ml Vial IV PUSH Q2M PRN Opiate Reversal Nystatin 5 ml 08/18/25 21:00 08/20/25 09:36 Nystatin 100,000 Units/Ml Susp 5 Ml Oral.Susp PO 5 ml QID LIA Administration Ondansetron HCl 4 mg 08/17/25 18:20 Ondansetron Inj 4 Mg/2 Ml Vial IV PUSH Q6H PRN Nausea And Vomiting Oxycodone HCl 5 mg 08/19/25 14:00 08/20/25 05:45 Oxycodone Hcl (*Crx) 5 Mg Tab Ir PO 5 mg Q8HR LIA Administration Oxycodone/Acetaminophen 1 tab 08/19/25 11:04 08/20/25 06:35 Oxycodone/Acetaminophen (*Crx) 10-325 Mg Tablet PO 1 tab Q4H PRN Administration Pain Rated 7-10 Sertraline HCl 200 mg 08/18/25 09:00 08/20/25 09:38 Sertraline Hcl 50 Mg Tablet PO 200 mg Q24H LIA Administration Tolnaftate 1 applic 08/17/25 21:00 08/19/25 20:35 Tolnaftate 1% Powder 45 Gm Btl TOPICAL 1 applic Q12HR LIA Administration Trazodone HCl 200 mg 08/17/25 21:00 08/19/25 20:33 Trazodone Hcl 50 Mg Tablet PO 200 mg HS LIA Administration Radiology Results: ITS Impressions Lumbar Spine X-Ray 08/17/25 14:20 Impression: No acute abnormality. Chest X-Ray 08/17/25 14:26 Impression: CHF Hip/Pelvis X-Ray 08/17/25 14:26 Impression: No acute fracture or malalignment. Shoulder X-Ray 08/17/25 14:26 Impression: No acute fracture or malalignment. Head CT 08/17/25 14:35 IMPRESSION: 1. Somewhat limited exam as above with no intracranial hemorrhage or large acute ischemic event. Labs Labs: Laboratory Results - last 24 hr 08/20/25 05:20 WBC 7.6 RBC 4.34 Hgb 11.7 Hct 39.0 MCV 89.9 MCH 27.0 MCHC 30.0 L RDW 15.9 H Plt Count 194 MPV 8.8 L Immature Gran % (Auto) 1.3 H Neut % (Auto) 66.2 Lymph % (Auto) 18.6 [place] % (Auto) 7.9 Eos % (Auto) 5.3 Baso % (Auto) 0.7 Lymph # (Auto) 1.41 [place] # (Auto) 0.60 Eos # (Auto) 0.40 Baso # (Auto) 0.05 Abs Immat Gran (auto) 0.10 H Absolute Neuts (auto) 5.04 Absolute Nucleated RBC 0.00 Nucleated RBC % 0.0 Sodium 141 Potassium 3.6 Chloride 104 Carbon Dioxide 30 Anion Gap 7 BUN 22 H Creatinine 0.80 Estim Creat Clear Calc 83 Estimated GFR > 60 Glucose 110 Calculated Osmolality 296 H Calcium 7.7 L Magnesium 2.1 Total Bilirubin 0.4 AST 78 H ALT 49 H Alkaline Phosphatase 67 Total Creatine Kinase Cancelled Total Protein 6.6 Albumin 3.4 L Quality VTE Prophylaxis VTE prophylaxis: pharmacologic ordered -Patient's previous records reviewed on admission -ER notes reviewed in detail on admission -discussed all findings and current treatment plan with patient/Family/POA -Consultations reviewed for recommendations -Patient's disposition for safe discharge discussed with complex case manager -radiology imaging, EKG and test results I have personally reviewed and interpreted unless otherwise specified Dictation performed by [employer] direct speech recognition software, therefore compliance investigator variants and typographical errors may occur. Hospitalist MIPS Advance Care Plan I have confirmed that the patient's Advanced Care Plan is present, code status is documented, or surrogate decision maker is listed in patient medical record.: Yes Medication Reconciliation I have utilized all available resources to obtain, update and review the elizabeth ents current medications (includes all prescriptions, OTC, herbals, cannabis, and nutritional supplements).: Yes The patient is not eligible for med reconciliation; the patient is in a emergent medical situation where delaying treatment would jeopardize the patients health.: No
--- NOTE | 2025-08-20 19:43 | PC.NURSE ---
FAMILY MEMBERS AT THE BEDSIDE
[2025-08-21] VITALS: BP 125/83; PULSE 77; RESP 18; TEMP 37; O2SAT 93
[2025-08-21] MEDS: ALBUTEROL SULFATE (*SP) INHALER 2 PUFF INHALATION ×4 (00:33→17:58)
[2025-08-21 05:30] VITALS: O2SAT 93
[2025-08-21 05:42] LABS: Hematocrit 37.3 % (35.0-42.0); Hemoglobin 11.5 g/dL (11.7-13.8); Immature Granulocyte Percent A 1.3 % (0.0-0.0); Lymphocytes Absolute Auto 1.26 K/mm3 (1.10-4.50); Mean Corpuscular HGB Conc 30.8 g/dL (32-36); Mean Corpuscular Hemoglobin 27.6 pg (27.0-31.0); Mean Corpuscular Volume 89.7 fL (78.0-102.0); Nucleated Red Blood Cells Absolute Auto 0.02 K/mm3 (0.00-0.00); Nucleated Red Blood Cells Perc 0.3 % (0-0.0); Platelet Count Result 177 K/mm3 (150-420); Red Blood Count 4.16 M/mm3 (4.20-5.40); White Blood Count 7.4 K/mm3 (4.8-10.8)
[2025-08-21] MEDS: oxyCODONE HCL (*CRX) 5 MG TAB IR PO ×3 (05:44→20:42)
[2025-08-21 05:53] LABS: Alanine Aminotransferase 41 U/L (6-35); Albumin Level 3.2 g/dL (3.5-5.1); Alkaline Phosphatase 66 U/L (38-126); Anion Gap 5 mmol/L (4-12); Aspartate Amino Transferase 53 U/L (14-36); Bilirubin,Total 0.4 mg/dL (0.2-1.3); Blood Urea Nitrogen 19 mg/dL (7-17); Calcium 7.9 mg/dL (8.4-10.2); Carbon Dioxide 33 mmol/L (22-30); Chloride 101 mmol/L (98-107); Estimated CRCL calculation 75 ml/min; Estimated Glomerular Filt Rate > 60; Glucose 120 mg/dL (65-110); Magnesium 2.1 mg/dL (1.6-2.3); Osmolality Calculated 291 mOsm/kg (285-295); Potassium 3.8 mmol/L (3.4-5.0); Sodium 139 mmol/L (137-145); Total Protein 6.3 g/dL (6.3-8.2)
[2025-08-21 08:00] VITALS: BP 130/47; PULSE 77; RESP 20; TEMP 36.9; O2SAT 90
[2025-08-21] MEDS: FLUCONAZOLE 200 MG/NACL 100 ML 200 MG/100 ML BAG 100 MG IVPB (09:57)
[2025-08-21] MEDS: FUROSEMIDE INJ 40 MG/4 ML VIAL IV PUSH (09:57)
[2025-08-21] MEDS: SERTRALINE HCL 50 MG TABLET 200 MG PO (10:01)
[2025-08-21] MEDS: NYSTATIN 100,000 UNITS/ML SUSP 5 ML ORAL.SUSP PO ×4 (10:01→20:42)
[2025-08-21 10:02] VITALS: PULSE 76
[2025-08-21] MEDS: HYDROXYCHLOROQUINE SULFATE 200 MG TABLET PO (10:02)
[2025-08-21] MEDS: EMPAGLIFLOZIN 10 MG TABLET PO (10:02)
[2025-08-21] MEDS: FUROSEMIDE 20 MG TABLET PO (10:02)
[2025-08-21] MEDS: ENOXAPARIN 40 MG/0.4 ML SYRINGE SUB-Q (10:02)
[2025-08-21] MEDS: LOSARTAN POTASSIUM 12.5 MG TABLET PO (10:02)
[2025-08-21] MEDS: buPROPion HCL XL (24 HR) 150 MG TABCR 300 MG PO (10:02)
[2025-08-21] MEDS: TOLNAFTATE 1% POWDER 45 GM BTL 1 APPLIC TOPICAL ×2 (10:03→20:42)
[2025-08-21] MEDS: BENZOCAINE/MENTHOL (*BKC) LOZENGE 1 LOZENGE PO (10:15)
[2025-08-21] MEDS: oxyCODONE/ACETAMINOPHEN (*CRX) 10-325 MG TABLET 1 TAB PO ×2 (10:28→18:07)
[2025-08-21 10:44] LABS: Creatine Kinase 294 U/L (30-135)
--- NOTE | 2025-08-21 10:59 | P.PNIM_ITS ---
Progress Note: A&P Assessment and Plan (1) Rhabdomyolysis: Qualifiers: Rhabdomyolysis type: non-traumatic Qualified Code(s): M62.82 - Rhabdomyolysis Code(s): M62.82 - Rhabdomyolysis Status: Resolved Assessment and Plan: RESOLVED Patient with falls x2 at home report lying for around 11 hours on the ground unable to get herself CPK on admission greater than 16,000 * CPK improved D/C fluids * encourage oral hydration * Trend CPK daily (2) Acute diastolic (congestive) heart failure: Code(s): I50.31 - Acute diastolic (congestive) heart failure Status: Acute Assessment and Plan: Patient states she has never been diagnosed with CHF does have a history STEVE last echocardiogram in 2023 showed LVEF of 65-70% with mild aortic stenosis and mild TR. Patient came in with elevated BNP greater than 8500 and CXR consistent with CHF vascular congestion * Repeat echocardiogram: diastolic heart failure with an EF of 50-55% * Transition to PO Lasix 20mg starting tomorrow * patient was started on losartan 12.5 daily, Coreg 3.125 b.i.d., and Jardiance and 10 mg daily * will discontinue patient's lisinopril /hydrochlorothiazide that she was taking home * Monitor daily weights * Strict I&Os * EKG sinus rhythm with right bundle-branch block (3) Fall: Qualifiers: Encounter type: initial encounter Qualified Code(s): W19.XXXA - Unspecified fall, initial encounter Code(s): W19.XXXA - Unspecified fall, initial encounter Status: Acute Assessment and Plan: Patient with fall x 2 trauma workup was negative for any acute fractures * PT/OT likely need rehab * pain management with scheduled Oxy scheduled t.i.d. p.o. Percocet as needed for severe pain IV morphine for breakthrough pain * gave single dose Toradol (4) Transaminitis: Code(s): R74.01 - Elevation of levels of liver transaminase levels Status: Acute Assessment and Plan: Elevated liver enzymes POA * Continue IV fluids improving * Hepatitis panel * Liver panel * If worsens ultrasound (5) Hypertension: Code(s): I10 - Essential (primary) hypertension Status: Chronic Assessment and Plan: * discontinued lisinopril/HCTZ * patient started on losartan 12.5 mg daily and Coreg 3.125 b.i.d. * monitor BP per unit protocol * Hydralazine PRN systolic >160 (6) Type 2 diabetes mellitus: Qualifiers: Diabetes mellitus mcfp insulin use: with predatory animal exterminator use Diabetes mellitus complication status: with skin complications Diabetes mellitus complication detail: with other skin complication Qualified Code(s): E11.628 - Type 2 diabetes mellitus with other skin complications; Z79.4 - skilled nursing (current) use of insulin Code(s): E11.9 - Type 2 diabetes mellitus without complications Status: Chronic Assessment and Plan: HX of diabetes but was taken off her medications due to decreased A1c. Mild hyperglycemia on admission * A1c 6.0 * Patient and family to home on any medication at this time * Recommend A1c follow-up in 3 months * patient started Jardiance (7) Depression: Code(s): F32.9 - Major depressive disorder, single episode, unspecified Status: Chronic Assessment and Plan: * continues Zoloft and Wellbutrin (8) PMR (polymyalgia rheumatica): Code(s): M35.3 - Polymyalgia rheumatica Status: Chronic Assessment and Plan: * continue hydroxychloroquine (9) Obstructive sleep apnea: Code(s): G47.33 - Obstructive sleep apnea (adult) (pediatric) Status: Chronic Assessment and Plan: * continue CPAP at night * albuterol rescue inhaler ordered p.r.n. * Harpal PRN for wheezing (10) Obesity hypoventilation syndrome: Code(s): E66.2 - Morbid (severe) obesity with alveolar hypoventilation Status: Acute Assessment and Plan: SEE Above #9 (11) Morbid obesity with body mass index (BMI) greater than or equal to 50: Code(s): E66.01 - Morbid (severe) obesity due to excess calories Status: Chronic Assessment and Plan: * BMI 57.4, 142.4 kg * educated on healthy diet and exercise program * Encourage increasing activity (12) GENEVIEVE (generalized anxiety disorder): Code(s): F41.1 - Generalized anxiety disorder Status: Chronic Assessment and Plan: * continue hydroxyzine 50 mg (13) Skin yeast infection: Code(s): B37.2 - Candidiasis of skin and nail Status: Acute Assessment and Plan: * intra dry to skin folds (14) Sinusitis: Code(s): J32.9 - Chronic sinusitis, unspecified Status: Acute Assessment and Plan: patient had been reporting postnasal drip and sinus pressure for over 6-7 days, sore throat * started on Augmentin p.o. for sinusitis * Still with sore thoat strep test was negative * added Ibuprofen for sore throat (15) Candidiasis: Code(s): B37.9 - Candidiasis, unspecified Status: Acute Assessment and Plan: Noted oropharyngeal and skin * IV Diflucan 200 mg daily Plan Code status: Full code per patient DVT prophylaxis: Lovenox Stress ulcer prophylaxis: NA PT/OT notes: PT/OT Disposition: Patient and unit for further treatment of rhabdomyolysis post fall and exacerbation of new diastolic HF. PT/OT pending for recommendations likely need rehab at discharge. Time Spent With Patient Time with patient: 15 - 25 minutes Subjective Date/time seen: 08/21/25 10:59 Interval history: Patient is a pleasant 70-year-old female who was admitted after 2 falls at home in immobilization for 11 hours resulting in rhabdomyolysis was also found to be in acute exacerbation of new onset heart failure. 08/21/2025: Patient still reported moderate pain all over worse with any movement but enforced the need to work with PT/OT and activity. Patient still with complaints of sore throat and mild SOB. Review of Systems Review of Systems: All systems reviewed & are unremarkable except as noted in HPI and below Exam Const: General: comfortable and no acute distress Eyes: Sclera: scleral abnormality left hemorrhage Other: Right periorbital ecchymosis Neck: Other: Increased neck circumference Resp: Effort & Inspection: normal respiratory effort Auscultation: wheezes scattered wheezes Cardio: Rate: regular rate Rhythm: regular rhythm Other: EKG sinus rhythm with right bundle branch block GI: Auscultation: normal bowel sounds Other: Large pannus, external hernia with intestinal contents Skin: Other: Skull region under skin folds, pressure to sacral area stage I, venous stasis bilateral extremity Neuro: Speech: normal speech Motor exam (neuro): 5/5 motor strength present throughout Sensory Exam: normal sensation Extrem: Other: Venous stasis bilateral extremities Psych: Mental Status: mental status grossly normal Affect: normal affect Objective Data Vital Signs Vital Signs: Vital Signs - 24 hr 08/20/25 16:00 08/20/25 20:00 08/20/25 20:23 Temperature 98.1 F Pulse Rate 74 77 77 Respiratory Rate 20 20 Blood Pressure 116/57 L Pulse Oximetry 94 94 Oxygen Delivery Nasal Cannula Nasal Cannula Oxygen Flow Rate 2 2 Fraction of Inspired Oxygen 0.21 08/21/25 00:00 08/21/25 08:00 08/21/25 10:02 Temperature 98.6 F 98.4 F Pulse Rate 77 77 76 Respiratory Rate 18 20 Blood Pressure 125/83 130/47 L Pulse Oximetry 93 90 Oxygen Delivery CPAP Nasal Cannula Oxygen Flow Rate 3 2 Fraction of Inspired Oxygen Intake/Output Intake/Output: Intake & Output 08/18/25 08/19/25 08/20/25 08/21/25 23:59 23:59 23:59 23:59 Intake Total 5160 5775 3670 150 Output Total 4150 4250 2650 350 Balance 1010 1525 1020 -200 Meds/Results Medications: Active Medications Generic Name Dose Route Start Last Admin Trade Name Freq PRN Reason Stop Dose Admin Acetaminophen 650 mg 08/17/25 18:19 Acetaminophen 325 Mg Tablet PO Q6H PRN Pain (Scale Score 1-3) Albuterol 2 puff 08/18/25 18:35 08/21/25 05:44 Albuterol Sulfate (*Sp) Inhaler INHALATION 2 puff Q6HRT LIA Administration Albuterol/Ipratropium 3 ml 08/18/25 10:15 Ipratropium 0.5 Mg/Albuterol Sulfate 2.5 Mg (Base) Ampul.Neb 3 Ml INHALATION Q6HRT PRN Wheezing Allopurinol 300 mg 08/18/25 09:00 08/21/25 10:03 Allopurinol 300 Mg Tablet PO 300 mg DAILY LIA Administration Amoxicillin/Clavulanate Potassium 1 tablet 08/18/25 21:00 08/21/25 10:03 Amoxicillin/Clavulanate K 875-125 Mg Tab PO 1 tablet Q12HR LIA Administration Benzocaine 1 lozenge 08/18/25 10:15 08/21/25 10:15 Benzocaine/Menthol (*Bkc) Lozenge PO 1 lozenge PRN PRN Administration Sore Throat Bupropion HCl 300 mg 08/18/25 09:00 08/21/25 10:02 Bupropion Hcl Xl (24 Hr) 150 Mg Tabcr PO 300 mg QAM LIA Administration Carvedilol 3.125 mg 08/19/25 09:10 08/21/25 10:02 Carvedilol 3.125 Mg Tablet PO 3.125 mg Q12HR LIA Administration Empagliflozin 10 mg 08/19/25 09:10 08/21/25 10:02 Empagliflozin 10 Mg Tablet PO 10 mg DAILY LIA Administration Enoxaparin Sodium 40 mg 08/18/25 09:00 08/21/25 10:02 Enoxaparin 40 Mg/0.4 Ml Syringe SUB-Q 40 mg DAILY LIA Administration Furosemide 20 mg 08/21/25 09:00 08/21/25 10:02 Furosemide 20 Mg Tablet PO 20 mg DAILY LIA Administration Hydralazine HCl 20 mg 08/17/25 18:25 Hydralazine Hcl 20 Mg/Ml Vial IV PUSH Q6HR PRN Hypertension Hydroxychloroquine Sulfate 200 mg 08/18/25 09:00 08/21/25 10:02 Hydroxychloroquine Sulfate 200 Mg Tablet PO 200 mg DAILY LIA Administration Hydroxyzine HCl 50 mg 08/17/25 18:19 08/19/25 20:34 Hydroxyzine Hcl 25 Mg Tablet PO 50 mg Q8H PRN Administration Anxiety Fluconazole 200 mg in 100 mls @ 100 mls/hr 08/20/25 09:00 08/21/25 09:57 Diflucan 200 Mg/Nacl 100 Ml IVPB 100 mls/hr DAILY LIA Administration Ibuprofen 600 mg 08/21/25 08:57 Ibuprofen 600 Mg Tablet PO Q6H PRN SORE THROAT Losartan Potassium 12.5 mg 08/19/25 09:20 08/21/25 10:02 Losartan Potassium 12.5 Mg Tablet PO 12.5 mg DAILY LIA Administration Morphine Sulfate 2 mg 08/17/25 18:20 Morphine Sulfate (*Crx) 4 Mg/Ml Inj IV PUSH Q4H PRN Pain Rated 7-10 Naloxone HCl 0.1 mg 08/17/25 18:20 Naloxone Hcl 0.4 Mg/Ml Vial IV PUSH Q2M PRN Opiate Reversal Nystatin 5 ml 08/18/25 21:00 08/21/25 10:01 Nystatin 100,000 Units/Ml Susp 5 Ml Oral.Susp PO 5 ml QID LIA Administration Ondansetron HCl 4 mg 08/17/25 18:20 Ondansetron Inj 4 Mg/2 Ml Vial IV PUSH Q6H PRN Nausea And Vomiting Oxycodone HCl 5 mg 08/19/25 14:00 08/21/25 05:44 Oxycodone Hcl (*Crx) 5 Mg Tab Ir PO 5 mg Q8HR LIA Administration Oxycodone/Acetaminophen 1 tab 08/19/25 11:04 08/21/25 10:28 Oxycodone/Acetaminophen (*Crx) 10-325 Mg Tablet PO 1 tab Q4H PRN Administration Pain Rated 7-10 Sertraline HCl 200 mg 08/18/25 09:00 08/21/25 10:01 Sertraline Hcl 50 Mg Tablet PO 200 mg Q24H LIA Administration Tolnaftate 1 applic 08/17/25 21:00 08/21/25 10:03 Tolnaftate 1% Powder 45 Gm Btl TOPICAL 1 applic Q12HR LIA Administration Trazodone HCl 200 mg 08/17/25 21:00 08/20/25 20:24 Trazodone Hcl 50 Mg Tablet PO 200 mg HS LIA Administration Radiology Results: ITS Impressions Lumbar Spine X-Ray 08/17/25 14:20 Impression: No acute abnormality. Chest X-Ray 08/17/25 14:26 Impression: CHF Hip/Pelvis X-Ray 08/17/25 14:26 Impression: No acute fracture or malalignment. Shoulder X-Ray 08/17/25 14:26 Impression: No acute fracture or malalignment. Head CT 08/17/25 14:35 IMPRESSION: 1. Somewhat limited exam as above with no intracranial hemorrhage or large acute ischemic event. Labs Labs: Laboratory Results - last 24 hr 08/21/25 05:24 WBC 7.4 RBC 4.16 L Hgb 11.5 L Hct 37.3 MCV 89.7 MCH 27.6 MCHC 30.8 L RDW 15.8 H Plt Count 177 MPV 8.9 L Immature Gran % (Auto) 1.3 H Neut % (Auto) 67.2 Lymph % (Auto) 17.0 L Sutter % (Auto) 7.7 Eos % (Auto) 6.1 H Baso % (Auto) 0.7 Lymph # (Auto) 1.26 Sutter # (Auto) 0.57 Eos # (Auto) 0.45 Baso # (Auto) 0.05 Abs Immat Gran (auto) 0.10 H Absolute Neuts (auto) 4.98 Absolute Nucleated RBC 0.02 H Nucleated RBC % 0.3 H Sodium 139 Potassium 3.8 Chloride 101 Carbon Dioxide 33 H Anion Gap 5 BUN 19 H Creatinine 0.89 Estim Creat Clear Calc 75 Estimated GFR > 60 Glucose 120 H Calculated Osmolality 291 Calcium 7.9 L Magnesium 2.1 Total Bilirubin 0.4 AST 53 H ALT 41 H Alkaline Phosphatase 66 Total Creatine Kinase 294 H Total Protein 6.3 Albumin 3.2 L Quality VTE Prophylaxis VTE prophylaxis: pharmacologic ordered -Patient's previous records reviewed on admission -ER notes reviewed in detail on admission -discussed all findings and current treatment plan with patient/Family/POA -Consultations reviewed for recommendations -Patient's disposition for safe discharge discussed with continuous pillowcase cutter -radiology imaging, EKG and test results I have personally reviewed and interpreted unless otherwise specified Dictation performed by [employer] direct speech recognition software, therefore drop man variants and typographical errors may occur. Hospitalist MIPS Advance Care Plan I have confirmed that the patient's Advanced Care Plan is present, code status is documented, or surrogate decision maker is listed in patient medical record.: Yes Medication Reconciliation I have utilized all available resources to obtain, update and review the patients current medications (includes all prescriptions, OTC, herbals, cannabis, and nutritional supplements).: Yes The patient is not eligible for med reconciliation; the patient is in a emergent medical situation where delaying treatment would jeopardize the patients health.: No
[2025-08-21] MEDS: KETOROLAC 30 MG/ML VIAL (*BKC) IV PUSH (11:00)
[2025-08-21 11:26] LABS: Hepatitis B Surface Antigen Negative (Negative)
[2025-08-21 11:32] LABS: HAV RESULT Negative (Negative); Hepatitis B Core IgM Result Negative (Negative)
[2025-08-21 16:00] VITALS: BP 106/56; PULSE 72; RESP 20; TEMP 36.6; O2SAT 96
[2025-08-21 20:42] VITALS: PULSE 76
[2025-08-22] VITALS (8 sets, daily range): BP systolic 102–137; BP diastolic 48–63; PULSE 68–80; RESP 18–22; TEMP 36.6–37.2; O2SAT 91–96
[2025-08-22] MEDS: ALBUTEROL SULFATE (*SP) INHALER 2 PUFF INHALATION ×4 (00:32→17:06)
[2025-08-22 05:32] LABS: Hematocrit 40.0 % (35.0-42.0); Hemoglobin 11.8 g/dL (11.7-13.8); Immature Granulocyte Percent A 1.4 % (0.0-0.0); Lymphocytes Absolute Auto 0.87 K/mm3 (1.10-4.50); Mean Corpuscular HGB Conc 29.5 g/dL (32-36); Mean Corpuscular Hemoglobin 27.1 pg (27.0-31.0); Mean Corpuscular Volume 91.7 fL (78.0-102.0); Nucleated Red Blood Cells Absolute Auto 0.00 K/mm3 (0.00-0.00); Nucleated Red Blood Cells Perc 0.0 % (0-0.0); Platelet Count Result 177 K/mm3 (150-420); Red Blood Count 4.36 M/mm3 (4.20-5.40); White Blood Count 8.3 K/mm3 (4.8-10.8)
[2025-08-22 05:43] LABS: Alanine Aminotransferase 35 U/L (6-35); Albumin Level 3.1 g/dL (3.5-5.1); Alkaline Phosphatase 64 U/L (38-126); Anion Gap 4 mmol/L (4-12); Aspartate Amino Transferase 42 U/L (14-36); Bilirubin,Total 0.4 mg/dL (0.2-1.3); Blood Urea Nitrogen 18 mg/dL (7-17); Calcium 8.1 mg/dL (8.4-10.2); Carbon Dioxide 35 mmol/L (22-30); Chloride 100 mmol/L (98-107); Estimated CRCL calculation 81 ml/min; Estimated Glomerular Filt Rate > 60; Glucose 127 mg/dL (65-110); Magnesium 2.2 mg/dL (1.6-2.3); Osmolality Calculated 291 mOsm/kg (285-295); Potassium 4.4 mmol/L (3.4-5.0); Sodium 139 mmol/L (137-145); Total Protein 5.9 g/dL (6.3-8.2)
[2025-08-22] MEDS: oxyCODONE HCL (*CRX) 5 MG TAB IR PO ×3 (05:49→21:15)
[2025-08-22] MEDS: SERTRALINE HCL 50 MG TABLET 200 MG PO (09:30)
[2025-08-22] MEDS: NYSTATIN 100,000 UNITS/ML SUSP 5 ML ORAL.SUSP PO ×4 (09:30→21:14)
[2025-08-22] MEDS: ENOXAPARIN 40 MG/0.4 ML SYRINGE SUB-Q (09:30)
[2025-08-22] MEDS: EMPAGLIFLOZIN 10 MG TABLET PO (09:31)
[2025-08-22] MEDS: HYDROXYCHLOROQUINE SULFATE 200 MG TABLET PO (09:31)
[2025-08-22] MEDS: buPROPion HCL XL (24 HR) 150 MG TABCR 300 MG PO (09:32)
[2025-08-22] MEDS: FUROSEMIDE 20 MG TABLET PO (09:32)
[2025-08-22] MEDS: LOSARTAN POTASSIUM 12.5 MG TABLET PO (09:33)
[2025-08-22] MEDS: TOLNAFTATE 1% POWDER 45 GM BTL 1 APPLIC TOPICAL ×2 (09:33→21:16)
[2025-08-22] MEDS: FLUCONAZOLE 200 MG/NACL 100 ML 200 MG/100 ML BAG 100 MG IVPB (09:42)
--- NOTE | 2025-08-22 12:46 | P.PNIM_ITS ---
Progress Note: A&P Assessment and Plan (1) Acute diastolic (congestive) heart failure: Code(s): I50.31 - Acute diastolic (congestive) heart failure Status: Acute Assessment and Plan: Patient states she has never been diagnosed with CHF does have a history STEVE last echocardiogram in 2023 showed LVEF of 65-70% with mild aortic stenosis and mild TR. Patient came in with elevated BNP greater than 8500 and CXR consistent with CHF vascular congestion * Repeat echocardiogram: diastolic heart failure with an EF of 50-55% * Transition to PO Lasix 20mg starting tomorrow * patient was started on losartan 12.5 daily, Coreg 3.125 b.i.d., and Jardiance and 10 mg daily * will discontinue patient's lisinopril /hydrochlorothiazide that she was taking home * Monitor daily weights * Strict I&Os * EKG sinus rhythm with right bundle-branch block (2) Fall: Qualifiers: Encounter type: initial encounter Qualified Code(s): W19.XXXA - Unspecified fall, initial encounter Code(s): W19.XXXA - Unspecified fall, initial encounter Status: Acute Assessment and Plan: Patient with fall x 2 trauma workup was negative for any acute fractures * PT/OT likely need rehab * pain management with scheduled Oxy scheduled t.i.d. p.o. Percocet as needed for severe pain IV morphine for breakthrough pain * gave single dose Toradol (3) Transaminitis: Code(s): R74.01 - Elevation of levels of liver transaminase levels Status: Acute Assessment and Plan: Elevated liver enzymes POA * Continue IV fluids improving * Hepatitis panel * Liver panel * If worsens ultrasound (4) Hypertension: Code(s): I10 - Essential (primary) hypertension Status: Chronic Assessment and Plan: * discontinued lisinopril/HCTZ * patient started on losartan 12.5 mg daily and Coreg 3.125 b.i.d. * monitor BP per unit protocol * Hydralazine PRN systolic >160 (5) Type 2 diabetes mellitus: Qualifiers: Diabetes mellitus longterm insulin use: with hand spring repairer helper use Diabetes mellitus complication status: with skin complications Diabetes mellitus complication detail: with other skin complication Qualified Code(s): E11.628 - Type 2 diabetes mellitus with other skin complications; Z79.4 - long-term (current) use of insulin Code(s): E11.9 - Type 2 diabetes mellitus without complications Status: Chronic Assessment and Plan: HX of diabetes but was taken off her medications due to decreased A1c. Mild hyperglycemia on admission * A1c 6.0 * Patient and family to home on any medication at this time * Recommend A1c follow-up in 3 months * patient started Jardiance (6) Depression: Code(s): F32.9 - Major depressive disorder, single episode, unspecified Status: Chronic Assessment and Plan: * continues Zoloft and Wellbutrin (7) PMR (polymyalgia rheumatica): Code(s): M35.3 - Polymyalgia rheumatica Status: Chronic Assessment and Plan: * continue hydroxychloroquine (8) Obstructive sleep apnea: Code(s): G47.33 - Obstructive sleep apnea (adult) (pediatric) Status: Chronic Assessment and Plan: * continue CPAP at night * albuterol rescue inhaler ordered p.r.n. * Duonebs for wheezing * added prednisone 40 mg daily patient still with some significant wheezing (9) Obesity hypoventilation syndrome: Code(s): E66.2 - Morbid (severe) obesity with alveolar hypoventilation Status: Acute Assessment and Plan: SEE Above #9 (10) Morbid obesity with body mass index (BMI) greater than or equal to 50: Code(s): E66.01 - Morbid (severe) obesity due to excess calories Status: Chronic Assessment and Plan: * BMI 57.4, 142.4 kg * educated on healthy diet and exercise program * Encourage increasing activity (11) GENEVIEVE (generalized anxiety disorder): Code(s): F41.1 - Generalized anxiety disorder Status: Chronic Assessment and Plan: * continue hydroxyzine 50 mg (12) Skin yeast infection: Code(s): B37.2 - Candidiasis of skin and nail Status: Acute Assessment and Plan: * intra dry to skin folds (13) Sinusitis: Code(s): J32.9 - Chronic sinusitis, unspecified Status: Acute Assessment and Plan: patient had been reporting postnasal drip and sinus pressure for over 6-7 days, sore throat * started on Augmentin p.o. for sinusitis * Still with sore thoat strep test was negative * added Ibuprofen for sore throat (14) Candidiasis: Code(s): B37.9 - Candidiasis, unspecified Status: Acute Assessment and Plan: Noted oropharyngeal and skin * IV Diflucan 200 mg daily (15) Rhabdomyolysis: Qualifiers: Rhabdomyolysis type: non-traumatic Qualified Code(s): M62.82 - Rhabdomyolysis Code(s): M62.82 - Rhabdomyolysis Status: Resolved Assessment and Plan: RESOLVED Patient with falls x2 at home report lying for around 11 hours on the ground unable to get herself CPK on admission greater than 16,000 * CPK improved D/C fluids * encourage oral hydration * Trend CPK daily Plan Code status: Full code per patient DVT prophylaxis: Lovenox Stress ulcer prophylaxis: NA PT/OT notes: PT/OT Disposition: Patient and unit for further treatment of rhabdomyolysis post fall and exacerbation of new diastolic HF. patient has been accepted to [facility] on insurance approval. Time Spent With Patient Time with patient: 15 - 25 minutes Subjective Date/time seen: 08/22/25 12:46 Interval history: Patient is a pleasant 70-year-old female who was admitted after 2 falls at home in immobilization for 11 hours resulting in rhabdomyolysis was also found to be in acute exacerbation of new onset heart failure. 08/22/2025: Patient up to chair reports pain is moderate but improving. She is wearing her CPAP and states SOB is better. Denies CP, N/V. Sore throat with slow improvement. Review of Systems Review of Systems: All systems reviewed & are unremarkable except as noted in HPI and below Exam Const: General: comfortable and no acute distress Eyes: Sclera: scleral abnormality left hemorrhage Other: Right periorbital ecchymosis Neck: Other: Increased neck circumference Resp: Effort & Inspection: normal respiratory effort Auscultation: wheezes scattered wheezes Cardio: Rate: regular rate Rhythm: regular rhythm Other: EKG sinus rhythm with right bundle branch block GI: Auscultation: normal bowel sounds Other: Large pannus, external hernia with intestinal contents Skin: Other: Skull region under skin folds, pressure to sacral area stage I, venous stasis bilateral extremity Neuro: Speech: normal speech Motor exam (neuro): 5/5 motor strength present throughout Sensory Exam: normal sensation Extrem: Other: Venous stasis bilateral extremities Psych: Mental Status: mental status grossly normal Affect: normal affect Objective Data Vital Signs Vital Signs: Vital Signs - 24 hr 08/21/25 16:00 08/21/25 20:42 08/22/25 00:00 Temperature 97.9 F 97.9 F Pulse Rate 72 76 76 Respiratory Rate 20 20 Blood Pressure 106/56 L 102/57 L Pulse Oximetry 96 93 Oxygen Delivery Nasal Cannula Nasal Cannula Oxygen Flow Rate 2 2 08/22/25 08:00 08/22/25 09:32 Temperature 99.0 F Pulse Rate 80 80 Respiratory Rate 18 Blood Pressure 120/48 L Pulse Oximetry 91 Oxygen Delivery Nasal Cannula Oxygen Flow Rate 2 Intake/Output Intake/Output: Intake & Output 08/19/25 08/20/25 08/21/25 08/22/25 23:59 23:59 23:59 23:59 Intake Total 5775 3670 2410 730 Output Total 4250 2650 1600 625 Balance 1525 1020 810 105 Meds/Results Medications: Active Medications Generic Name Dose Route Start Last Admin Trade Name Freq PRN Reason Stop Dose Admin Acetaminophen 650 mg 08/17/25 18:19 Acetaminophen 325 Mg Tablet PO Q6H PRN Pain (Scale Score 1-3) Albuterol 2 puff 08/18/25 18:35 08/22/25 12:41 Albuterol Sulfate (*Sp) Inhaler INHALATION 2 puff Q6HRT LIA Administration Albuterol/Ipratropium 3 ml 08/18/25 10:15 Ipratropium 0.5 Mg/Albuterol Sulfate 2.5 Mg (Base) Ampul.Neb 3 Ml INHALATION Q6HRT PRN Wheezing Allopurinol 300 mg 08/18/25 09:00 08/22/25 09:32 Allopurinol 300 Mg Tablet PO 300 mg DAILY LIA Administration Amoxicillin/Clavulanate Potassium 1 tablet 08/18/25 21:00 08/22/25 09:31 Amoxicillin/Clavulanate K 875-125 Mg Tab PO 1 tablet Q12HR LIA Administration Benzocaine 1 lozenge 08/18/25 10:15 08/21/25 10:15 Benzocaine/Menthol (*Bkc) Lozenge PO 1 lozenge PRN PRN Administration Sore Throat Bupropion HCl 300 mg 08/18/25 09:00 08/22/25 09:32 Bupropion Hcl Xl (24 Hr) 150 Mg Tabcr PO 300 mg QAM LIA Administration Carvedilol 3.125 mg 08/19/25 09:10 08/22/25 09:32 Carvedilol 3.125 Mg Tablet PO 3.125 mg Q12HR LIA Administration Empagliflozin 10 mg 08/19/25 09:10 08/22/25 09:31 Empagliflozin 10 Mg Tablet PO 10 mg DAILY LIA Administration Enoxaparin Sodium 40 mg 08/18/25 09:00 08/22/25 09:30 Enoxaparin 40 Mg/0.4 Ml Syringe SUB-Q 40 mg DAILY LIA Administration Furosemide 20 mg 08/21/25 09:00 08/22/25 09:32 Furosemide 20 Mg Tablet PO 20 mg DAILY LIA Administration Hydralazine HCl 20 mg 08/17/25 18:25 Hydralazine Hcl 20 Mg/Ml Vial IV PUSH Q6HR PRN Hypertension Hydroxychloroquine Sulfate 200 mg 08/18/25 09:00 08/22/25 09:31 Hydroxychloroquine Sulfate 200 Mg Tablet PO 200 mg DAILY LIA Administration Hydroxyzine HCl 50 mg 08/17/25 18:19 08/19/25 20:34 Hydroxyzine Hcl 25 Mg Tablet PO 50 mg Q8H PRN Administration Anxiety Fluconazole 200 mg in 100 mls @ 100 mls/hr 08/20/25 09:00 08/22/25 09:42 Diflucan 200 Mg/Nacl 100 Ml IVPB 100 mls/hr DAILY LIA Administration Ibuprofen 600 mg 08/21/25 08:57 Ibuprofen 600 Mg Tablet PO Q6H PRN SORE THROAT Losartan Potassium 12.5 mg 08/19/25 09:20 08/22/25 09:33 Losartan Potassium 12.5 Mg Tablet PO 12.5 mg DAILY LIA Administration Morphine Sulfate 2 mg 08/17/25 18:20 Morphine Sulfate (*Crx) 4 Mg/Ml Inj IV PUSH Q4H PRN Pain Rated 7-10 Naloxone HCl 0.1 mg 08/17/25 18:20 Naloxone Hcl 0.4 Mg/Ml Vial IV PUSH Q2M PRN Opiate Reversal Nystatin 5 ml 08/18/25 21:00 08/22/25 12:44 Nystatin 100,000 Units/Ml Susp 5 Ml Oral.Susp PO 5 ml QID LIA Administration Ondansetron HCl 4 mg 08/17/25 18:20 Ondansetron Inj 4 Mg/2 Ml Vial IV PUSH Q6H PRN Nausea And Vomiting Oxycodone HCl 5 mg 08/19/25 14:00 08/22/25 05:49 Oxycodone Hcl (*Crx) 5 Mg Tab Ir PO 5 mg Q8HR LIA Administration Oxycodone/Acetaminophen 1 tab 08/19/25 11:04 08/21/25 18:07 Oxycodone/Acetaminophen (*Crx) 10-325 Mg Tablet PO 1 tab Q4H PRN Administration Pain Rated 7-10 Sertraline HCl 200 mg 08/18/25 09:00 08/22/25 09:30 Sertraline Hcl 50 Mg Tablet PO 200 mg Q24H LIA Administration Tolnaftate 1 applic 08/17/25 21:00 08/22/25 09:33 Tolnaftate 1% Powder 45 Gm Btl TOPICAL 1 applic Q12HR LIA Administration Trazodone HCl 200 mg 08/17/25 21:00 08/21/25 20:41 Trazodone Hcl 50 Mg Tablet PO 200 mg HS LIA Administration Radiology Results: ITS Impressions Lumbar Spine X-Ray 08/17/25 14:20 Impression: No acute abnormality. Chest X-Ray 08/17/25 14:26 Impression: CHF Hip/Pelvis X-Ray 08/17/25 14:26 Impression: No acute fracture or malalignment. Shoulder X-Ray 08/17/25 14:26 Impression: No acute fracture or malalignment. Head CT 08/17/25 14:35 IMPRESSION: 1. Somewhat limited exam as above with no intracranial hemorrhage or large acute ischemic event. Labs Labs: Laboratory Results - last 24 hr 08/22/25 05:12 WBC 8.3 RBC 4.36 Hgb 11.8 Hct 40.0 MCV 91.7 MCH 27.1 MCHC 29.5 L RDW 15.7 H Plt Count 177 MPV 8.9 L Immature Gran % (Auto) 1.4 H Neut % (Auto) 77.7 H Lymph % (Auto) 10.5 L [place] % (Auto) 5.6 Eos % (Auto) 4.2 Baso % (Auto) 0.6 Lymph # (Auto) 0.87 L [place] # (Auto) 0.47 Eos # (Auto) 0.35 Baso # (Auto) 0.05 Abs Immat Gran (auto) 0.12 H Absolute Neuts (auto) 6.46 Absolute Nucleated RBC 0.00 Nucleated RBC % 0.0 Sodium 139 Potassium 4.4 Chloride 100 Carbon Dioxide 35 H Anion Gap 4 BUN 18 H Creatinine 0.82 Estim Creat Clear Calc 81 Estimated GFR > 60 Glucose 127 H Calculated Osmolality 291 Calcium 8.1 L Magnesium 2.2 Total Bilirubin 0.4 AST 42 H ALT 35 Alkaline Phosphatase 64 Total Protein 5.9 L Albumin 3.1 L Quality VTE Prophylaxis VTE prophylaxis: pharmacologic ordered -Patient's previous records reviewed on admission -ER notes reviewed in detail on admission -discussed all findings and current treatment plan with patient/Family/POA -Consultations reviewed for recommendations -Patient's disposition for safe discharge discussed with family preservation caseworker -radiology imaging, EKG and test results I have personally reviewed and interpreted unless otherwise specified Dictation performed by [employer] direct speech recognition software, therefore library clerk talking books variants and typographical errors may occur. Hospitalist MIPS Advance Care Plan I have confirmed that the patient's Advanced Care Plan is present, code status is documented, or surrogate decision maker is listed in patient medical record.: Yes Medication Reconciliation I have utilized all available resources to obtain, update and review the patients current medications (includes all prescriptions, OTC, herbals, cannabis, and nutritional supplements).: Yes The patient is not eligible for med reconciliation; the patient is in a emergent medical situation where delaying treatment would jeopardize the patients health.: No
[2025-08-22] MEDS: IPRATROPIUM 0.5 MG/ALBUTEROL SULFATE 2.5 MG (BASE) AMPUL.NEB 3 ML INHALATION (17:11)
[2025-08-23] VITALS (14 sets, daily range): BP systolic 131–142; BP diastolic 55–69; PULSE 53–80; RESP 12–20; TEMP 36.3; O2SAT 92–100
[2025-08-23] MEDS: ALBUTEROL SULFATE (*SP) INHALER 2 PUFF INHALATION ×4 (00:14→17:59)
[2025-08-23] MEDS: IPRATROPIUM 0.5 MG/ALBUTEROL SULFATE 2.5 MG (BASE) AMPUL.NEB 3 ML INHALATION ×4 (00:14→17:59)
[2025-08-23] MEDS: oxyCODONE HCL (*CRX) 5 MG TAB IR PO ×3 (05:48→21:31)
[2025-08-23 05:50] LABS: Hematocrit 37.8 % (35.0-42.0); Hemoglobin 11.2 g/dL (11.7-13.8); Immature Granulocyte Percent A 1.3 % (0.0-0.0); Lymphocytes Absolute Auto 0.45 K/mm3 (1.10-4.50); Mean Corpuscular HGB Conc 29.6 g/dL (32-36); Mean Corpuscular Hemoglobin 27.2 pg (27.0-31.0); Mean Corpuscular Volume 91.7 fL (78.0-102.0); Nucleated Red Blood Cells Absolute Auto 0.00 K/mm3 (0.00-0.00); Nucleated Red Blood Cells Perc 0.0 % (0-0.0); Platelet Count Result 156 K/mm3 (150-420); Red Blood Count 4.12 M/mm3 (4.20-5.40); White Blood Count 8.2 K/mm3 (4.8-10.8)
[2025-08-23 06:04] LABS: Alanine Aminotransferase 27 U/L (6-35); Albumin Level 2.9 g/dL (3.5-5.1); Alkaline Phosphatase 40 U/L (38-126); Anion Gap 5 mmol/L (4-12); Aspartate Amino Transferase 43 U/L (14-36); Bilirubin,Total 0.7 mg/dL (0.2-1.3); Blood Urea Nitrogen 20 mg/dL (7-17); Calcium 8.3 mg/dL (8.4-10.2); Carbon Dioxide 27 mmol/L (22-30); Chloride 103 mmol/L (98-107); Estimated CRCL calculation 99 ml/min; Estimated Glomerular Filt Rate > 60; Glucose 118 mg/dL (65-110); Magnesium 2.7 mg/dL (1.6-2.3); Osmolality Calculated 283 mOsm/kg (285-295); Potassium 5.0 mmol/L (3.4-5.0); Sodium 135 mmol/L (137-145); Total Protein 5.9 g/dL (6.3-8.2)
[2025-08-23] MEDS: oxyCODONE/ACETAMINOPHEN (*CRX) 10-325 MG TABLET 1 TAB PO (07:43)
[2025-08-23] MEDS: SERTRALINE HCL 50 MG TABLET 200 MG PO (08:02)
[2025-08-23] MEDS: NYSTATIN 100,000 UNITS/ML SUSP 5 ML ORAL.SUSP PO ×4 (08:02→21:31)
[2025-08-23] MEDS: FLUCONAZOLE 200 MG/NACL 100 ML 200 MG/100 ML BAG 100 MG IVPB (08:02)
[2025-08-23] MEDS: TOLNAFTATE 1% POWDER 45 GM BTL 1 APPLIC TOPICAL ×2 (08:02→21:32)
[2025-08-23] MEDS: HYDROXYCHLOROQUINE SULFATE 200 MG TABLET PO (08:03)
[2025-08-23] MEDS: EMPAGLIFLOZIN 10 MG TABLET PO (08:03)
[2025-08-23] MEDS: buPROPion HCL XL (24 HR) 150 MG TABCR 300 MG PO (08:03)
[2025-08-23] MEDS: FUROSEMIDE 20 MG TABLET PO (08:03)
[2025-08-23] MEDS: LOSARTAN POTASSIUM 12.5 MG TABLET PO (08:03)
[2025-08-23] MEDS: ENOXAPARIN 40 MG/0.4 ML SYRINGE SUB-Q (08:04)
--- NOTE | 2025-08-23 10:58 | P.PNIM_ITS ---
Progress Note: A&P Assessment and Plan (1) Acute diastolic (congestive) heart failure: Code(s): I50.31 - Acute diastolic (congestive) heart failure Status: Acute Assessment and Plan: Patient states she has never been diagnosed with CHF does have a history STEVE last echocardiogram in 2023 showed LVEF of 65-70% with mild aortic stenosis and mild TR. Patient came in with elevated BNP greater than 8500 and CXR consistent with CHF vascular congestion * Repeat echocardiogram: diastolic heart failure with an EF of 50-55% * s/p IV Lasix, started on PO Lasix today * patient was started on losartan 12.5 daily, Coreg 3.125 b.i.d., and Jardiance and 10 mg daily * will discontinue patient's lisinopril /hydrochlorothiazide that she was taking home * Monitor daily weights * Strict I&Os * EKG sinus rhythm with right bundle-branch block (2) Fall: Qualifiers: Encounter type: initial encounter Qualified Code(s): W19.XXXA - Unspecified fall, initial encounter Code(s): W19.XXXA - Unspecified fall, initial encounter Status: Acute Assessment and Plan: Patient with fall x 2 trauma workup was negative for any acute fractures * PT/OT likely need rehab * pain management with scheduled Oxy scheduled t.i.d. p.o. Percocet as needed for severe pain IV morphine for breakthrough pain * gave single dose Toradol * pain appears controlled at this time (3) Transaminitis: Code(s): R74.01 - Elevation of levels of liver transaminase levels Status: Acute Assessment and Plan: Elevated liver enzymes POA * Continue IV fluids improving * Hepatitis panel * Liver panel * If worsens ultrasound (4) Hypertension: Code(s): I10 - Essential (primary) hypertension Status: Chronic Assessment and Plan: * discontinued lisinopril/HCTZ * patient started on losartan 12.5 mg daily and Coreg 3.125 b.i.d. * monitor BP per unit protocol * Hydralazine PRN systolic >160 (5) Type 2 diabetes mellitus: Qualifiers: Diabetes mellitus alf insulin use: with alf use Diabetes mellitus complication status: with skin complications Diabetes mellitus complication detail: with other skin complication Qualified Code(s): E11.628 - Type 2 diabetes mellitus with other skin complications; Z79.4 - snf (current) use of insulin Code(s): E11.9 - Type 2 diabetes mellitus without complications Status: Chronic Assessment and Plan: HX of diabetes but was taken off her medications due to decreased A1c. Mild hyperglycemia on admission * A1c 6.0 * Patient and family to home on any medication at this time * Recommend A1c follow-up in 3 months * patient started Jardiance (6) Depression: Code(s): F32.9 - Major depressive disorder, single episode, unspecified Status: Chronic Assessment and Plan: * continues Zoloft and Wellbutrin (7) PMR (polymyalgia rheumatica): Code(s): M35.3 - Polymyalgia rheumatica Status: Chronic Assessment and Plan: * continue hydroxychloroquine (8) Obstructive sleep apnea: Code(s): G47.33 - Obstructive sleep apnea (adult) (pediatric) Status: Chronic Assessment and Plan: * continue CPAP at night * albuterol rescue inhaler ordered p.r.n. * Duonebs for wheezing * continue prednisone 40 mg daily for significant wheezing, will complete a 5 day course (9) Obesity hypoventilation syndrome: Code(s): E66.2 - Morbid (severe) obesity with alveolar hypoventilation Status: Acute Assessment and Plan: SEE Above #9 (10) Morbid obesity with body mass index (BMI) greater than or equal to 50: Code(s): E66.01 - Morbid (severe) obesity due to excess calories Status: Chronic Assessment and Plan: * BMI 57.4, 142.4 kg * educated on healthy diet and exercise program * Encourage increasing activity (11) GENEVIEVE (generalized anxiety disorder): Code(s): F41.1 - Generalized anxiety disorder Status: Chronic Assessment and Plan: * continue hydroxyzine 50 mg (12) Skin yeast infection: Code(s): B37.2 - Candidiasis of skin and nail Status: Acute Assessment and Plan: * intra dry to skin folds (13) Sinusitis: Code(s): J32.9 - Chronic sinusitis, unspecified Status: Acute Assessment and Plan: patient had been reporting postnasal drip and sinus pressure for over 6-7 days, sore throat * started on Augmentin p.o. for sinusitis * Still with sore thoat strep test was negative * added Ibuprofen for sore throat (14) Candidiasis: Code(s): B37.9 - Candidiasis, unspecified Status: Acute Assessment and Plan: Noted oropharyngeal and skin * IV Diflucan 200 mg daily (15) Rhabdomyolysis: Qualifiers: Rhabdomyolysis type: non-traumatic Qualified Code(s): M62.82 - Rhabdomyolysis Code(s): M62.82 - Rhabdomyolysis Status: Resolved Assessment and Plan: RESOLVED Patient with falls x2 at home report lying for around 11 hours on the ground tabitha ble to get herself CPK on admission greater than 16,000 * CPK improved D/C fluids * encourage oral hydration Plan Code status: Full code per patient DVT prophylaxis: Lovenox Stress ulcer prophylaxis: NA PT/OT notes: PT/OT Disposition: Patient and unit for further treatment of rhabdomyolysis post fall and exacerbation of new diastolic HF. patient has been accepted to [facility] on insurance approval. Subjective Date/time seen: 08/23/25 10:58 Interval history: Patient seen for a follow up visit. Patient lying in bed, in no acute distress. Patient denies acute complaints. Patient continues on PO furosemide. Patient continues on PO Augmentin for acute sinusitis. Patient on IV Diflucan and topical antifungal powder for cellulitis due to fungal infection in her skin folds. Patient will need SNF on discharge, CC working on discharge plan. Review of Systems Review of Systems: All systems reviewed & are unremarkable except as noted in HPI and below Exam Const: General: comfortable and no acute distress Eyes: Sclera: scleral abnormality left hemorrhage Other: Right periorbital ecchymosis Neck: Other: Increased neck circumference Resp: Effort & Inspection: normal respiratory effort Auscultation: wheezes scattered wheezes Cardio: Rate: regular rate Rhythm: regular rhythm GI: Auscultation: normal bowel sounds Other: Large pannus, external hernia with intestinal contents Skin: Other: Skull region under skin folds, pressure to sacral area stage I, venous stasis bilateral extremity Neuro: Speech: normal speech Motor exam (neuro): 5/5 motor strength present throughout Sensory Exam: normal sensation Extrem: Other: Venous stasis bilateral extremities Psych: Mental Status: mental status grossly normal Affect: normal affect Objective Data Vital Signs Vital Signs: Vital Signs - 24 hr 08/22/25 16:00 08/22/25 17:14 08/22/25 17:21 Temperature 97.8 F Pulse Rate 79 70 72 Respiratory Rate 22 H 18 18 Blood Pressure 137/63 Pulse Oximetry 93 96 Oxygen Delivery Nasal Cannula Oxygen Flow Rate 2 3 Fraction of Inspired Oxygen 08/22/25 21:14 08/23/25 00:00 08/23/25 00:13 Temperature 97.3 F L Pulse Rate 68 68 68 Respiratory Rate 18 18 Blood Pressure 142/69 H Pulse Oximetry 94 94 Oxygen Delivery Nasal Cannula Oxygen Flow Rate 2 2 Fraction of Inspired Oxygen 08/23/25 00:30 08/23/25 05:54 08/23/25 06:07 Temperature Pulse Rate 76 80 78 Respiratory Rate 18 20 20 Blood Pressure Pulse Oximetry 98 96 100 Oxygen Delivery Oxygen Flow Rate 2 2 2 Fraction of Inspired Oxygen 08/23/25 08:00 08/23/25 08:00 08/23/25 08:03 Temperature 97.4 F L Pulse Rate 64 64 64 Respiratory Rate 18 18 Blood Pressure 133/55 L Pulse Oximetry 94 94 Oxygen Delivery Nasal Cannula Nasal Cannula Oxygen Flow Rate 2 2 Fraction of Inspired Oxygen 0.21 Intake/Output Intake/Output: Intake & Output 08/20/25 08/21/25 08/22/25 08/23/25 23:59 23:59 23:59 23:59 Intake Total 3670 2410 1550 1410 Output Total 2650 1600 625 Balance 1020 265 117 5083 Meds/Results Medications: Active Medications Generic Name Dose Route Start Last Admin Trade Name Freq PRN Reason Stop Dose Admin Acetaminophen 650 mg 08/17/25 18:19 Acetaminophen 325 Mg Tablet PO Q6H PRN Pain (Scale Score 1-3) Albuterol 2 puff 08/18/25 18:35 08/23/25 05:48 Albuterol Sulfate (*Sp) Inhaler INHALATION 2 puff Q6HRT LIA Administration Albuterol/Ipratropium 3 ml 08/22/25 18:30 08/23/25 05:53 Ipratropium 0.5 Mg/Albuterol Sulfate 2.5 Mg (Base) Ampul.Neb 3 Ml INHALATION 3 ml Q6HRT LIA Administration Allopurinol 300 mg 08/18/25 09:00 08/23/25 08:03 Allopurinol 300 Mg Tablet PO 300 mg DAILY LIA Administration Amoxicillin/Clavulanate Potassium 1 tablet 08/18/25 21:00 08/23/25 08:03 Amoxicillin/Clavulanate K 875-125 Mg Tab PO 1 tablet Q12HR LIA Administration Benzocaine 1 lozenge 08/18/25 10:15 08/21/25 10:15 Benzocaine/Menthol (*Bkc) Lozenge PO 1 lozenge PRN PRN Administration Sore Throat Bupropion HCl 300 mg 08/18/25 09:00 08/23/25 08:03 Bupropion Hcl Xl (24 Hr) 150 Mg Tabcr PO 300 mg QAM LIA Administration Carvedilol 3.125 mg 08/19/25 09:10 08/23/25 08:03 Carvedilol 3.125 Mg Tablet PO 3.125 mg Q12HR LIA Administration Empagliflozin 10 mg 08/19/25 09:10 08/23/25 08:03 Empagliflozin 10 Mg Tablet PO 10 mg DAILY LIA Administration Enoxaparin Sodium 40 mg 08/18/25 09:00 08/23/25 08:04 Enoxaparin 40 Mg/0.4 Ml Syringe SUB-Q 40 mg DAILY LIA Administration Furosemide 20 mg 08/21/25 09:00 08/23/25 08:03 Furosemide 20 Mg Tablet PO 20 mg DAILY LIA Administration Hydralazine HCl 20 mg 08/17/25 18:25 Hydralazine Hcl 20 Mg/Ml Vial IV PUSH Q6HR PRN Hypertension Hydroxychloroquine Sulfate 200 mg 08/18/25 09:00 08/23/25 08:03 Hydroxychloroquine Sulfate 200 Mg Tablet PO 200 mg DAILY LIA Administration Hydroxyzine HCl 50 mg 08/17/25 18:19 08/23/25 07:43 Hydroxyzine Hcl 25 Mg Tablet PO 50 mg Q8H PRN Administration Anxiety Fluconazole 200 mg in 100 mls @ 100 mls/hr 08/20/25 09:00 08/23/25 09:05 Diflucan 200 Mg/Nacl 100 Ml IVPB Infused DAILY LIA Infusion Ibuprofen 600 mg 08/21/25 08:57 Ibuprofen 600 Mg Tablet PO Q6H PRN SORE THROAT Losartan Potassium 12.5 mg 08/19/25 09:20 08/23/25 08:03 Losartan Potassium 12.5 Mg Tablet PO 12.5 mg DAILY LIA Administration Naloxone HCl 0.1 mg 08/17/25 18:20 Naloxone Hcl 0.4 Mg/Ml Vial IV PUSH Q2M PRN Opiate Reversal Nystatin 5 ml 08/18/25 21:00 08/23/25 08:02 Nystatin 100,000 Units/Ml Susp 5 Ml Oral.Susp PO 5 ml QID LIA Administration Ondansetron HCl 4 mg 08/17/25 18:20 Ondansetron Inj 4 Mg/2 Ml Vial IV PUSH Q6H PRN Nausea And Vomiting Oxycodone HCl 5 mg 08/19/25 14:00 08/23/25 05:48 Oxycodone Hcl (*Crx) 5 Mg Tab Ir PO 5 mg Q8HR LIA Administration Oxycodone/Acetaminophen 1 tab 08/19/25 11:04 08/23/25 07:43 Oxycodone/Acetaminophen (*Crx) 10-325 Mg Tablet PO 1 tab Q4H PRN Administration Pain Rated 7-10 Prednisone 40 mg 08/22/25 12:50 08/23/25 08:03 Prednisone 20 Mg Tablet PO 40 mg DAILY@0800 LIA Administration Sertraline HCl 200 mg 08/18/25 09:00 08/23/25 08:02 Sertraline Hcl 50 Mg Tablet PO 200 mg Q24H LIA Administration Tolnaftate 1 applic 08/17/25 21:00 08/23/25 08:02 Tolnaftate 1% Powder 45 Gm Btl TOPICAL 1 applic Q12HR LIA Administration Trazodone HCl 200 mg 08/17/25 21:00 08/22/25 21:15 Trazodone Hcl 50 Mg Tablet PO 200 mg HS LIA Administration Radiology Results: ITS Impressions Lumbar Spine X-Ray 08/17/25 14:20 Impression: No acute abnormality. Chest X-Ray 08/17/25 14:26 Impression: CHF Hip/Pelvis X-Ray 08/17/25 14:26 Impression: No acute fracture or malalignment. Shoulder X-Ray 08/17/25 14:26 Impression: No acute fracture or malalignment. Head CT 08/17/25 14:35 IMPRESSION: 1. Somewhat limited exam as above with no intracranial hemorrhage or large acute ischemic event. Labs Labs: Laboratory Results - last 24 hr 08/23/25 05:42 WBC 8.2 RBC 4.12 L Hgb 11.2 L Hct 37.8 MCV 91.7 MCH 27.2 MCHC 29.6 L RDW 15.0 H Plt Count 156 MPV 8.7 L Immature Gran % (Auto) 1.3 H Neut % (Auto) 88.9 H Lymph % (Auto) 5.5 L Lea % (Auto) 4.0 Eos % (Auto) 0.1 L Baso % (Auto) 0.2 Lymph # (Auto) 0.45 L Lea # (Auto) 0.33 Eos # (Auto) 0.01 L Baso # (Auto) 0.02 Abs Immat Gran (auto) 0.11 H Absolute Neuts (auto) 7.29 H Absolute Nucleated RBC 0.00 Nucleated RBC % 0.0 Sodium 135 L Potassium 5.0 Chloride 103 Carbon Dioxide 27 Anion Gap 5 BUN 20 H Creatinine 0.66 L Estim Creat Clear Calc 99 Estimated GFR > 60 Glucose 118 H Calculated Osmolality 283 L Calcium 8.3 L Magnesium 2.7 H Total Bilirubin 0.7 AST 43 H ALT 27 Alkaline Phosphatase 40 Total Protein 5.9 L Albumin 2.9 L Quality VTE Prophylaxis VTE prophylaxis: pharmacologic ordered -Patient's previous records reviewed on admission -ER notes reviewed in detail on admission -discussed all findings and current treatment plan with patient/Family/POA -Consultations reviewed for recommendations -Patient's disposition for safe discharge discussed with egg caser -radiology imaging, EKG and test results I have personally reviewed and interpreted unless otherwise specified Dictation performed by [employer] direct speech recognition software, therefore squirrel man variants and typographical errors may occur.
--- NOTE | 2025-08-23 12:53 | PC.NURSE ---
Daughter brought in home CPAP, RT to ensure unit is functional.
[2025-08-24] VITALS (9 sets, daily range): BP systolic 116–117; BP diastolic 56–57; PULSE 58–70; RESP 16–18; TEMP 36.2–36.7; O2SAT 93–98
[2025-08-24] MEDS: oxyCODONE/ACETAMINOPHEN (*CRX) 10-325 MG TABLET 1 TAB PO ×3 (00:23→12:30)
[2025-08-24] MEDS: IPRATROPIUM 0.5 MG/ALBUTEROL SULFATE 2.5 MG (BASE) AMPUL.NEB 3 ML INHALATION ×3 (00:23→11:38)
[2025-08-24 05:31] LABS: Hematocrit 36.5 % (35.0-42.0); Hemoglobin 11.0 g/dL (11.7-13.8); Immature Granulocyte Percent A 1.4 % (0.0-0.0); Lymphocytes Absolute Auto 0.96 K/mm3 (1.10-4.50); Mean Corpuscular HGB Conc 30.1 g/dL (32-36); Mean Corpuscular Hemoglobin 26.9 pg (27.0-31.0); Mean Corpuscular Volume 89.2 fL (78.0-102.0); Nucleated Red Blood Cells Absolute Auto 0.00 K/mm3 (0.00-0.00); Nucleated Red Blood Cells Perc 0.0 % (0-0.0); Platelet Count Result 184 K/mm3 (150-420); Red Blood Count 4.09 M/mm3 (4.20-5.40); White Blood Count 8.5 K/mm3 (4.8-10.8)
[2025-08-24 05:44] LABS: Alanine Aminotransferase 28 U/L (6-35); Albumin Level 3.2 g/dL (3.5-5.1); Alkaline Phosphatase 63 U/L (38-126); Anion Gap 5 mmol/L (4-12); Aspartate Amino Transferase 30 U/L (14-36); Bilirubin,Total 0.3 mg/dL (0.2-1.3); Blood Urea Nitrogen 22 mg/dL (7-17); Calcium 8.6 mg/dL (8.4-10.2); Carbon Dioxide 36 mmol/L (22-30); Chloride 98 mmol/L (98-107); Estimated CRCL calculation 83 ml/min; Estimated Glomerular Filt Rate > 60; Glucose 100 mg/dL (65-110); Magnesium 2.3 mg/dL (1.6-2.3); Osmolality Calculated 291 mOsm/kg (285-295); Potassium 4.3 mmol/L (3.4-5.0); Sodium 139 mmol/L (137-145); Total Protein 6.1 g/dL (6.3-8.2)
[2025-08-24] MEDS: ALBUTEROL SULFATE (*SP) INHALER 2 PUFF INHALATION (05:56)
[2025-08-24] MEDS: oxyCODONE HCL (*CRX) 5 MG TAB IR PO ×2 (05:56→12:30)
[2025-08-24] MEDS: FLUCONAZOLE 200 MG/NACL 100 ML 200 MG/100 ML BAG 100 MG IVPB (08:19)
[2025-08-24] MEDS: SERTRALINE HCL 50 MG TABLET 200 MG PO (08:23)
[2025-08-24] MEDS: NYSTATIN 100,000 UNITS/ML SUSP 5 ML ORAL.SUSP PO (08:23)
[2025-08-24] MEDS: buPROPion HCL XL (24 HR) 150 MG TABCR 300 MG PO (08:23)
[2025-08-24] MEDS: HYDROXYCHLOROQUINE SULFATE 200 MG TABLET PO (08:24)
[2025-08-24] MEDS: LOSARTAN POTASSIUM 12.5 MG TABLET PO (08:24)
[2025-08-24] MEDS: EMPAGLIFLOZIN 10 MG TABLET PO (08:24)
[2025-08-24] MEDS: FUROSEMIDE 20 MG TABLET PO (08:24)
[2025-08-24] MEDS: ENOXAPARIN 40 MG/0.4 ML SYRINGE SUB-Q (08:25)
[2025-08-24] MEDS: TOLNAFTATE 1% POWDER 45 GM BTL 1 APPLIC TOPICAL (08:27)
--- NOTE | 2025-08-24 12:06 | P.DS_ITS ---
DS: Admitting Diagnosis Discharge Date 08/24/2025 Admitting Diagnosis Rhabdomyolysis Fall CHF Transaminitis Hypertension Type 2 diabetes mellitus Depression PMR (Polymyalgia rheumatica) GENEVIEVE Obstructive sleep apnea Morbid obesity with body mass index greater than or equal to 50 Skin yeast infection DS: Discharge Diagnosis Discharge Diagnosis (1) Acute diastolic (congestive) heart failure: Code(s): I50.31 - Acute diastolic (congestive) heart failure Status: Acute (2) Fall: Qualifiers: Encounter type: initial encounter Qualified Code(s): W19.XXXA - Unspecified fall, initial encounter Code(s): W19.XXXA - Unspecified fall, initial encounter Status: Acute (3) Transaminitis: Code(s): R74.01 - Elevation of levels of liver transaminase levels Status: Acute (4) Hypertension: Code(s): I10 - Essential (primary) hypertension Status: Chronic (5) Type 2 diabetes mellitus: Qualifiers: Diabetes mellitus alf insulin use: with terminal superintendent use Diabetes mellitus complication status: with skin complications Diabetes mellitus complication detail: with other skin complication Qualified Code(s): E11.628 - Type 2 diabetes mellitus with other skin complications; Z79.4 - prison (current) use of insulin Code(s): E11.9 - Type 2 diabetes mellitus without complications Status: Chronic (6) Depression: Code(s): F32.9 - Major depressive disorder, single episode, unspecified Status: Chronic (7) PMR (polymyalgia rheumatica): Code(s): M35.3 - Polymyalgia rheumatica Status: Chronic (8) Obstructive sleep apnea: Code(s): G47.33 - Obstructive sleep apnea (adult) (pediatric) Status: Chronic (9) Obesity hypoventilation syndrome: Code(s): E66.2 - Morbid (severe) obesity with alveolar hypoventilation Status: Acute (10) Morbid obesity with body mass index (BMI) greater than or equal to 50: Code(s): E66.01 - Morbid (severe) obesity due to excess calories Status: Chronic (11) GENEVIEVE (generalized anxiety disorder): Code(s): F41.1 - Generalized anxiety disorder Status: Chronic (12) Skin yeast infection: Code(s): B37.2 - Candidiasis of skin and nail Status: Acute (13) Sinusitis: Code(s): J32.9 - Chronic sinusitis, unspecified Status: Acute (14) Candidiasis: Code(s): B37.9 - Candidiasis, unspecified Status: Acute (15) Rhabdomyolysis: Qualifiers: Rhabdomyolysis type: non-traumatic Qualified Code(s): M62.82 - Rhabdomyolysis Code(s): M62.82 - Rhabdomyolysis Status: Resolved DS: Summary Hospital Course Reason for hospitalization: rhabdomyolysis Hospital Course: Rhabdomyolysis Patient with falls x2 at home report lying for around 11 hours on the ground unable to get herself CPK on admission greater than 16,000 * CPK improved D/C fluids * encourage oral hydration * Resolved Fall Patient with fall x 2 trauma workup was negative for any acute fractures * PT/OT * pain management with scheduled Oxy scheduled t.i.d. p.o. Percocet as needed for severe pain IV morphine for breakthrough pain * gave single dose Toradol * pain appears controlled at this time * patient discharging to SNF at [facility] today CHF Patient states she has never been diagnosed with CHF does have a history STEVE last echocardiogram in 2023 showed LVEF of 65-70% with mild aortic stenosis and mild TR. Patient came in with elevated BNP greater than 8500 and CXR consistent with CHF vascular congestion * Repeat echocardiogram: diastolic heart failure with an EF of 50-55% * s/p IV Lasix, continue PO Lasix * patient was started on losartan 12.5 daily, Coreg 3.125 b.i.d., and Jardiance and 10 mg daily * will discontinue patient's lisinopril /hydrochlorothiazide that she was taking home * Monitor daily weights * Strict I&Os * EKG sinus rhythm with right bundle-branch block Transaminitis Elevated liver enzymes POA * s/p IV fluids * Hepatitis panel negative * Liver panel WNL at time of discharge Hypertension * discontinued lisinopril/HCTZ * patient started on losartan 12.5 mg daily and Coreg 3.125 b.i.d. Type 2 diabetes mellitus HX of diabetes but was taken off her medications due to decreased A1c. Mild hyperglycemia on admission * A1c 6.0 * Patient and family to home on any medication at this time * Recommend A1c follow-up in 3 months * patient started Jardiance due to CHF diagnosis Depression * continues Zoloft and Wellbutrin PMR (Polymyalgia rheumatica) * continue hydroxychloroquine GENEVIEVE * continue hydroxyzine 50 mg Obstructive sleep apnea * continue CPAP at night * albuterol rescue inhaler ordered p.r.n. * Duonebs for wheezing * continue prednisone 40 mg daily for significant wheezing, will complete a 5 day course Morbid obesity with body mass index greater than or equal to 50 * BMI 57.4, 142.4 kg * educated on healthy diet and exercise program * Encourage increasing activity Skin yeast infection * to all skin folds, wash with soap and water, dry, apply antifungal cream, apply interdry to all skin folds. * s/p IV Diflucan Sinusitis patient had been reporting postnasal drip and sinus pressure for over 6-7 days, sore throat * started on Augmentin p.o. for sinusitis, complete 7 day course * Still with sore throat strep test was negative * Ibuprofen for sore throat Candidiasis Noted oropharyngeal and skin * s/p IV Diflucan 200 mg daily * continue nystatin swish and swallow * continue skin care as above Time Spent with Patient Time attestation: Total time spent providing and/or coordinating discharge services: 40 Minutes Exam Const: General: comfortable and no acute distress Eyes: Sclera: scleral abnormality left hemorrhage Other: Right periorbital ecchymosis Neck: Other: Increased neck circumference Resp: Effort & Inspection: normal respiratory effort Auscultation: wheezes scattered wheezes Cardio: Rate: regular rate Rhythm: regular rhythm Other: GI: Auscultation: normal bowel sounds Other: Large pannus, external hernia with intestinal contents Skin: Other: Skull region under skin folds, pressure to sacral area stage I, venous stasis bilateral extremity Neuro: Speech: normal speech Motor exam (neuro): 5/5 motor strength present throughout Sensory Exam: normal sensation Extrem: Other: Venous stasis bilateral extremities Psych: Mental Status: mental status grossly normal Affect: normal affect DS: Data Data Completed and Pending Completed studies during hospitalization: ECHO Signed Patient: Yanni Kraus : 1955 MR#: [id number] Age: 70 Acct:[id number] Loc: [id number] ADM Date: 08/18/[address]: Sudarshan Orr M.D. Ordering Physician: Marleny Kate APRN Date of Service: 08/18/25 Procedure(s): CA echo dop color flow w con Accession Number(s): [id number] cc: Marleny Kate APRN; Juliann Hartman MD~ Patient Info Name: Yanni Kraus Age: 70 years : 1955 Gender: Female Ht: 64 in Wt: 350 lbs BSA: 2.79 m2 BP: 138 / 66 mmHg Technical Quality: Fair Exam Date: 08/18/2025 3:24 PM Patient Status: I Admit Date: 08/18/2025 Exam Type: CA echo dop color flow w con Complete two-dimensional, color flow and Doppler transthoracic echocardiogram is performed with contrast to opacify the left ventricle and to improve the deliniation of the left ventricle endocardial borders. Staff Referring Physician: Sam Rod MD Metal Fabricator Welder: Jennifer Rodriguez Attending Provider: Sudarshan Orr MD Contrast/Agitated Saline Contrast/Ag. Saline: Definity Amount: 2.00 ml Summary 1. Definity contrast administered improved wall motion interpretation. 2. Left ventricular chamber dimension is moderately enlarged. 3. Left ventricular systolic function is normal, estimated at 55-60. 4. The left ventricular diastolic function is abnormal. 5. E/e' 13 is mildly elevated. 6. The aortic valve is not well visualized. Cannot determine number of aortic valve leaflets. 7. There is trace mitral valve regurgitation. 8. There is trace tricuspid valve regurgitation. 9. No pulmonary hypertension, estimated pulmonary arterial systolic pressure is 38 mmHg. Left Ventricle Left ventricular chamber dimension is moderately enlarged. Left ventricular systolic function is normal, estimated at 55-60. The left ventricular diastolic function is abnormal. Definity contrast administered improved wall motion interpretation. E/e' 13 is mildly elevated. Right Ventricle Right ventricular chamber dimension is normal. Right ventricular systolic function is normal and with normal TAPSE 1.9 cm. Left Atria Left atrial chamber dimension is normal. Right Atria Right atrial chamber dimension is normal. Aortic Valve The aortic valve is not well visualized. Cannot determine number of aortic valve leaflets. There is no aortic valve stenosis based on valve area and gradients. There is no aortic valve regurgitation. Pulmonic Valve There is no pulmonic regurgitation. Mitral Valve There is no mitral valve stenosis. There is trace mitral valve regurgitation. Tricuspid Valve There is trace tricuspid valve regurgitation. No pulmonary hypertension, estimated pulmonary arterial systolic pressure is 38 mmHg. Pericardium/Pleural There is no pericardial effusion. Inferior Vena Cava Normal inferior vena cava with >50% collapse upon inspiration consistent with normal right atrial pressure, 5 mmHg. Aorta The aortic root size at the sinus of Valsalva is normal. Left Ventricular Outflow Tract Name Value Normal LVOT 2D LVOT Diameter 2.0 cm LVOT Doppler LVOT Peak Velocity 142 cm/s LVOT Peak Gradient 8 mmHg LVOT Mean Gradient 4 mmHg LVOT VTI 27 cm LVOT VTI/AV VTI Ratio 0.6 LVOT Stroke Volume 88 ml LVOT CO 6.7 l/min LVOT CI 2.4 l/min/m2 Pulmonic Valve Name Value Normal RVOT Doppler RVOT Peak Velocity 102 cm/s RVOT Peak Gradient 4 mmHg PV Doppler PV Peak Velocity 135 cm/s PV Peak Gradient 7 mmHg Mitral Valve Name Value Normal MV Diastolic Function MV E Peak Velocity 134 cm/s MV A Peak Velocity 104 cm/s MV E/A 1.3 MV Decel Time (PW) 226 ms MV Annular TDI MV E/e' (Septal) 15.7 MV E/e' (Lateral) 12.1 MV E/e' (Average) 13.9 Tricuspid Valve Name Value Normal TV Regurgitation Doppler TR Peak Velocity 288 cm/s TR Peak Gradient 33 mmHg Estimated PAP/RSVP RA Pressure 5 mmHg <=5 PA Systolic Pressure 38 mmHg <36 RV Systolic Pressure 38 mmHg <36 Aortic Valve Name Value Normal AV Doppler AV Peak Velocity 203 cm/s AV Peak Gradient 16 mmHg AV Mean Gradient 8 mmHg AV VTI 42 cm AV Area (Cont Eq VTI) 2.1 cm2 >=3.0 AV Area (Cont Eq Srinivasan) 2.3 cm2 AV DI (Srinivasan) 0.70 AV Regurgitation 2D LVOT Area 3.3 cm2 Ventricles Name Value Normal LV Dimensions 2D/MM LVOT Diameter 2.0 cm LV Fractional Shortening/Ejection Fraction 2D/MM LV Diastolic Volume (4C MOD) 150 ml LV EF (4C MOD) 50 % LV Diastolic Volume (2C MOD) 142 ml LV EF (2C MOD) 59 % LV Diastolic Volume (BP MOD) 149 ml 46-106 LV Diastolic Volume Index (BP MOD) 53 ml/m2 29-61 LV Systolic Volume (BP MOD) 66 ml 14-42 LV Systolic Volume Index (BP MOD) 24 ml/m2 8-24 LV EF (BP MOD) 55 % 54-74 LV Diastolic Length (4C) 7.6 cm LV Systolic Length (4C) 6.7 cm LV Stroke Volume (4C MOD) 75 ml Atria Name Value Normal LA Dimensions LA Volume (4C A-L) 59 ml LA Volume (BP A-L) 70 ml RA Dimensions RA Systolic Major [place] Length (4C) 5.3 cm 2.2-2.8 RA Area (4C) 17.4 cm2 <=18.0 Report Signatures Please be advised this is a medical document. It is intended for [id number] communication. It is written in medical language and may contain unfamiliar abbreviations or verbiage. Medical documents are intended to carry relevant information, facts as evident, and the clinical opinion of the practitioner at the time of the encounter. This report may have been done utilizing a voice recognition system. Attempts have been made to correct errors. However, there may be uncorrected grammatical, spelling, and recognition errors present. The file time of this note does not necessarily represent the time of service. Dictated By: Wyatt Cain DO 08/18/25 1524 Signed By: 08/18/25 2142 Labs on day of discharge: Labs from last 24 hours 08/24/25 05:24 WBC 8.5 RBC 4.09 L Hgb 11.0 L Hct 36.5 MCV 89.2 MCH 26.9 L MCHC 30.1 L RDW 15.3 H Plt Count 184 MPV 8.9 L Immature Gran % (Auto) 1.4 H Neut % (Auto) 79.4 H Lymph % (Auto) 11.3 L [place] % (Auto) 5.7 Eos % (Auto) 1.7 Baso % (Auto) 0.5 Lymph # (Auto) 0.96 L [place] # (Auto) 0.48 Eos # (Auto) 0.14 Baso # (Auto) 0.04 Abs Immat Gran (auto) 0.12 H Absolute Neuts (auto) 6.74 Absolute Nucleated RBC 0.00 Nucleated RBC % 0.0 Sodium 139 Potassium 4.3 Chloride 98 Carbon Dioxide 36 H Anion Gap 5 BUN 22 H Creatinine 0.80 Estim Creat Clear Calc 83 Estimated GFR > 60 Glucose 100 Calculated Osmolality 291 Calcium 8.6 Magnesium 2.3 Total Bilirubin 0.3 AST 30 ALT 28 Alkaline Phosphatase 63 Total Protein 6.1 L Albumin 3.2 L Imaging Radiologist's impression: Ordering Physician: Sam Rod MD Date of Service: 08/17/25 Procedure(s): XR lumbar spine 2-3V Accession Number(s): [id number] cc: Juliann Hartman MD; Sam Rod MD~ XR lumbar spine 2-3V Indication: Low back injury Comparison: None Findings: Moderate loss of vertebral height throughout, no fracture or subluxation. Moderate to severe loss of disc height throughout Soft tissues unremarkable Impression: No acute abnormality. Reviewed, dictated and finalized at location P. R COVERINGS INSTALLER Ordering Physician: Sam Rod MD Date of Service: 08/17/25 Procedure(s): XR chest 1V portable Accession Number(s): [id number] cc: Juliann Hartman MD; Sam Rod MD~ EXAMINATION: XR chest 1V portable COMPARISON: No comparisons available. HISTORY: Cough congestion FINDINGS: Moderate pulmonary venous congestion. No pneumothorax. Moderate cardiomegaly. Mediastinal and hilar contours are within normal limits. Bony thorax no acute abnormality. Miscellaneous: None Impression: CHF Reviewed, dictated and finalized at location P. R COVERINGS INSTALLER Ordering Physician: Sam Rod MD Date of Service: 08/17/25 Procedure(s): XR hip BI 2V w AP pelvis Accession Number(s): [id number] cc: Juliann Hartman MD; Sam Rod MD~ EXAMINATION: XR hip BI 2V w AP pelvis, 08/17/2025 13:45 FLOOR COVERINGS INSTALLER HISTORY: Bilateral hip injury COMPARISON: No comparisons available. Findings: No acute fracture or malalignment. Moderate to severe bilateral degenerative changes Soft tissues unremarkable. Impression: No acute fracture or malalignment. Reviewed, dictated and finalized at location P. R COVERINGS INSTALLER Ordering Physician: Sam Rod MD Date of Service: 08/17/25 Procedure(s): XR shoulder LT min 2V Accession Number(s): [id number] cc: Juliann Hartman MD; Sam Rod MD~ EXAMINATION: XR shoulder LT min 2V, 08/17/2025 13:45 FLOOR COVERINGS INSTALLER HISTORY: Shoulder injury COMPARISON: No comparisons available. Findings: No acute fracture or malalignment. No significant degenerative changes. Soft tissues unremarkable. Impression: No acute fracture or malalignment. Reviewed, dictated and finalized at location P. R COVERINGS INSTALLER Ordering Physician: Sam Rod MD Date of Service: 08/17/25 Procedure(s): XR shoulder RT min 2V Accession Number(s): [id number] cc: Juliann Hartman MD; Sam Rod MD~ EXAMINATION: XR shoulder RT min 2V, 08/17/2025 13:45 FLOOR COVERINGS INSTALLER HISTORY: Shoulder injury COMPARISON: No comparisons available. Findings: No acute fracture or malalignment. Moderate degenerative changes Soft tissues unremarkable. Impression: No acute fracture or malalignment. Reviewed, dictated and finalized at location P. R COVERINGS INSTALLER Patient: Yanni Kraus : 1955 MR#: [id number] Age: 70 Acct:[id number] Loc: [facility]SED ADM Date: 08/17/[address]: Ordering Physician: Sam Rod MD Date of Service: 08/17/25 Procedure(s): CT brain wo con Accession Number(s): [id number] cc: Juliann Hartman MD; Sam Rod MD~ EXAMINATION: CT brain wo con DATE: 08/17/2025 14:17 INDICATION: Possible injury TECHNIQUE: Computed tomography (CT) of the head was performed without intravenous contrast. The dose-length product was 605.33 mGy-cm. COMPARISON: November 01, 2023 FINDINGS: Exam limited by extensive artifact associated with patient body habitus. No gross acute intracranial process. There appears to be moderately severe diffuse hypoattenuating white matter changes but no large acute ischemic event, mass effect or bleed. Calvarial structures appear intact. IMPRESSION: 1. Somewhat limited exam as above with no intracranial hemorrhage or large acute ischemic event. Reviewed, dictated and finalized at location A. R COVERINGS INSTALLER Discharge Plan Discharge Attending physician on discharge: Sudarshan Orr Consulting providers: Marleny Kate Discharging Clinician: Kerrie Fernández Patient Disposition: SNF Activity: as tolerated Diet: heart healthy Discharge Instructions: to all skin folds, wash with soap and water, dry, apply antifungal cream, apply interdry to all skin folds. Patient Instructions: Rhabdomyolysis (DC), Fall Prevention for Older Adults (DC), Urinary Tract Infection in Older Adults (DC) Patient Language: Turkmen Stand Alone Forms: General Discharge Information, Senior Living Discharge Follow-up/Referrals: Juliann Hartman MD [Primary Care Provider, Internal Medicine] Referral Note: Follow up with PCP after discharge from SNF Discharge Medications: New oxycodone 5 mg Tablet 5 mg PO Q8HR Qty: 21 0RF oxycodone-acetaminophen 10-325 mg Tablet 1 tablet PO Q4H PRN (Reason: Pain Rated 7-10) Qty: 14 0RF carvedilol [Coreg] 3.125 mg Tablet 3.125 mg PO Q12HR Qty: 30 0RF furosemide 20 mg Tablet 20 mg PO DAILY Qty: 30 0RF ibuprofen 600 mg Tablet 600 mg PO Q6H PRN (Reason: SORE THROAT) Qty: 30 0RF Chloraseptic Sore Throat 6-10 mg Lozenge 1 yudelka PO PRN PRN (Reason: Sore Throat) Qty: 30 0RF Jardiance 10 mg Tablet 10 mg PO DAILY Qty: 30 0RF losartan 25 mg tablet 12.5 mg PO DAILY Qty: 30 0RF nystatin 100,000 unit/mL Suspension 5 ml PO QID 5 Days Qty: 100 0RF naloxone 0.4 mg/mL Solution 0.1 mg IV PUSH Q2M PRN (Reason: Opiate Reversal) Qty: 10 0RF prednisone 20 mg Tablet 40 mg PO DAILY@0800 2 Days Qty: 4 0RF tolnaftate 1 % Powder 1 applic topical Q12HR 30 Days Qty: 45 0RF amoxicillin-pot clavulanate 875-125 mg tablet 1 tablet PO Q12H Qty: 3 0RF miconazole nitrate 2 % cream 1 applic topical BID Qty: 30 0RF Rx Instructions: apply to all skin folds Continued hydroxyzine HCl 25 mg Tablet 50 mg PO Q8H PRN (Reason: Anxiety) Qty: 20 0RF hydroxychloroquine 200 mg tablet 200 mg PO DAILY Qty: 30 0RF bupropion HCl 300 mg tablet extended release 24 hr 300 mg PO QAM Qty: 30 0RF allopurinol 300 mg tablet 300 mg PO DAILY sertraline 100 mg tablet 200 mg PO Q24H trazodone 100 mg tablet 200 mg PO HS acetaminophen 325 mg tablet 650 mg PO Q6H PRN (Reason: Pain (Scale Score 1-3)) albuterol sulfate 90 mcg/actuation HFA aerosol inhaler 2 puff INHALATION QID Rx Instructions: Every 6 hours Discontinued tolnaftate 1 % Powder 1 applic topical Q12HR Qty: 45 2RF Rx Instructions: fold in skin breast/abd and groin/under arms lisinopril-hydrochlorothiazide 20-12.5 mg tablet 2 tablet PO DAILY Date of admission: 08/18/25 14:49 Primary Care Provider: Juliann Hartman Admitting Provider: Sudarshan Orr Attending physician on admission: Sudarshan Orr Condition: Stable Quality VTE Prophylaxis VTE prophylaxis: pharmacologic ordered
--- NOTE | 2025-08-24 12:30 | PC.NURSE ---
Discharge instructions faxed to [facility] and given to patient, states understanding. Assisted with dressing. Now up in recliner eating lunch.
--- NOTE | 2025-08-24 13:30 | PC.NURSE ---
Transported out of facility by narrative writer via wheelchair. Patient required extensive 2-3 assist for transfer into family SUV. Left in stable condition. Report called to [facility], phone [phone].
--- NOTE | 2025-08-28 09:58 | PC.NURSE ---
discharge call back, to longterm, no questions regarding dc instructions or medication list.
== END 2025-08-24 13:30 | DRG 557 ==
LOC: CHSED 15:48 → CHS2ND 16:27
PROVIDERS: Nurse Practitioner Family; Admitting Provider Internal Medicine; Emergency Provider Emergency Medicine; PCP Internal Medicine; Visit Provider Internal Medicine
DX: M62.82 Rhabdomyolysis (principal); I50.31 Acute diastolic (congestive) heart failure; Z68.43 Body mass index [BMI] 50.0-59.9, adult; W18.11XA Fall from or off toilet without subsequent striking against object, initial encounter; B37.2 Candidiasis of skin and nail; E11.628 Type 2 diabetes mellitus with other skin complications; E66.01 Morbid (severe) obesity due to excess calories; F32.A Depression, unspecified; F41.1 Generalized anxiety disorder; G47.33 Obstructive sleep apnea (adult) (pediatric); I11.0 Hypertensive heart disease with heart failure; J32.9 Chronic sinusitis, unspecified; J44.9 Chronic obstructive pulmonary disease, unspecified; L40.9 Psoriasis, unspecified; M10.9 Gout, unspecified; M25.512 Pain in left shoulder; M25.511 Pain in right shoulder; M25.552 Pain in left hip; M25.551 Pain in right hip; M54.50 Low back pain, unspecified; M35.3 Polymyalgia rheumatica; R74.01 Elevation of levels of liver transaminase levels; Z20.822 Contact with and (suspected) exposure to COVID-19; Z79.84 Long term (current) use of oral hypoglycemic drugs; Z87.891 Personal history of nicotine dependence; Z90.49 Acquired absence of other specified parts of digestive tract; Z79.4 Long term (current) use of insulin
CPT/HCPCS: 36415; 70450; 71045; 72100; 73030; 73521; 80053; 80061; 80074; 81001; 82550; 83036; 83605; 83735; 83880; 85025; 87040; 87637; 87651; 93005; 94640; 96361; 96365; 96375; 97110; 97162; 97165; 97530; 97535; 99285; A9270; C8929; G0378; J0696; J1450; J1650; J1885; J1938; J2270; J7030; J7512; Q9957